=== PATIENT | female | born 1955 | race Hispanic/Latino ===

== ENCOUNTER 2019-11-25 21:13 | Observation (INO) | payer SELFPAY ==
--- NOTE | 2019-11-25 22:11 | RAD REPORT ---
EXAM DESCRIPTION: CT - Head Brain Wo Cont - 11/25/2019 10:04 pm CLINICAL HISTORY: DIZZINESS Headache, drowsiness COMPARISON: No comparisons TECHNIQUE: All CT scans are performed using dose optimization technique as appropriate and may inclu de automated exposure control or mA/KV adjustment according to patient size. FINDINGS: No intracranial hemorrhage, hydrocephalus or extra-axial fluid collection.Mild brain atrop hy noted.No areas of brain edema or evidence of midline shift. The paranasal sinuses and mastoids are clear. The calvarium is intact. IMPRESSION: No acute intracranial abnormality.
[2019-11-25] MEDS ORDERED: NA CHLORIDE 0.9% 1,000 ML ONE (22:18)
[2019-11-25] MEDS ORDERED: NA CHLORIDE 0.9% 500 ML ONE (22:18)
[2019-11-25] MEDS ORDERED: ONDANSETRON 4 MG/2 ML VIAL ONE (22:18)
[2019-11-25 22:19] LABS: Absolute Lymphocytes (CBC) 1.6 K/uL (0.7-4.9); Basophils % 0.9 % (0-1.3); Hematocrit 39.3 % (36.0-45.0); Lymphocytes % 23.4 % (15.3-44.8); MPV 11.6 fL (7.6-11.3)
[2019-11-25 22:20] LABS: Protime INR 1.61
[2019-11-25 22:52] LABS: Platelet Estimate ADEQ
[2019-11-25 22:53] LABS: Blood Morphology Comment NOT SEEN (NOT SEEN)
[2019-11-25 22:54] LABS: Albumin 2.5 g/dL (3.4-5.0); Bilirubin Direct 1.8 mg/dL (0-0.2); Bilirubin Total 3.1 mg/dL (0.2-1.0); Troponin (Emerg Dept Use Only) 0.02 ng/mL (0.0-0.045)
[2019-11-25 22:55] LABS: Thyroid Stimulating Hormone 9.97 uIU/mL (0.360-3.740)
[2019-11-25 22:56] LABS: Potassium 2.1 mmol/L (3.5-5.1)
[2019-11-25 23:30] LABS: Urine Blood 3+ (NEG); Urine Glucose NEGATIVE (NEG); Urine Protein 2+ (NEG); Urine Specific Gravity >1.030 (1.005-1.030)
--- NOTE | 2019-11-25 23:34 | ER ---
Nurse's Notes [facility] Name: Maci Zhao Age: 64 yrs Sex: Female : 1955 Arrival Date: 11/25/2019 Time: 21:19 Bed 14 Private MD: Endy Pillai T Diagnosis: Near syncop[e. Dizziness. Marked bradycardia. Severe hypokalemia and hypomagnesemia. Hypothyroidism Presentation: 11/24 21:10 Chief complaint: EMS states: that they were toned for pt "not feeling well", fc hypotension, fatigue, nausea, vomiting and being in a "funk" x 2 days. Pt states she was seen by Dr Pillai 2 days ago and changed from Celexa to Lexapro. Coronavirus screen: Proceed with normal triage. Ebola Screen: Patient negative for fever greater than or equal to 101.5 degrees Fahrenheit, and additional compatible Ebola Virus Disease symptoms Patient denies exposure to infectious person. Patient denies travel to an Ebola-affected area in the 21 days before illness onset. Initial Sepsis Screen: Does the patient meet any 2 criteria? No. Patient's initial sepsis screen is negative. Does the patient have a suspected source of infection? No. Patient's initial sepsis screen is negative. Risk Assessment: Do you want to hurt yourself or someone else? Patient reports no desire to harm self or others. Onset of symptoms was November 23, 2019. Care prior to arrival: Glucose check: 123. Transition of care: patient was not received from another setting of care. 21:10 Method Of Arrival: EMS: [facility] 21:10 Acuity: CHIP 3 fc Triage Assessment: 21:20 General: Appears in no apparent distress. comfortable, Behavior is calm, cooperative, ls4 quiet. 21:20 Pain: Denies pain. ls4 Historical: - Allergies: 21:32 No Known Allergies; fc - Home Meds: 21:32 escitalopram oxalate oral oral [Active]; Atenolol Oral [Active]; losartan oral oral fc [Active]; Hydrochlorothiazide Oral [Active]; Doxepin Oral [Active]; - PMHx: 21:32 Hypertension; ETOH Abuse; Anxiety; Depression; fc - PSHx: 21:32 Tonsillectomy; R ankle; fc - Immunization history:: Last tetanus immunization: unknown, Flu vaccine is not up to date. - Social history:: Smoking status: Patient denies any tobacco usage or history of. Patient uses alcohol, claims drinking about a 6 pack/day. Patient/guardian denies using street drugs. Screenin:10 Abuse screen: Denies threats or abuse. Nutritional screening: No deficits noted. Tuberculosis screening: No symptoms or risk factors identified. Fall Risk Fall in past 12 months (25 points). Secondary diagnosis (15 points) impaired mobility, No IV (0 pts). Ambulatory Aid- None/Bed Rest/Nurse Assist (0 pts). Gait- Weak (10 pts.). Mental Status- Overestimates/Forgets Limitations (15 pts.). Total Henriquez Fall Scale indicates High Risk Score (45 or more points). Fall prevention measures have been instituted. Side Rails Up X 2 Placed Close to Nursing Station Frequent Obs/Assessments Occuring As available patient and family educated on Fall Prevention Program and Strategies. Assessment: 22:07 General: Appears unkempt, Behavior is cooperative, quiet. Pain: Denies pain. Neuro: ls4 Level of Consciousness is awake, alert, obeys commands, Oriented to person, place, time. Cardiovascular: Reports fatigue, lightheadedness, Denies chest pain, diaphoresis, palpitations, shortness of breath, syncope, vomiting. Respiratory: No deficits noted. GI: No deficits noted. : Reports urinary frequency. Derm: Skin is dry, Skin is dusky, Skin temperature is warm. Musculoskeletal: No deficits noted. No signs and/or symptoms reported regarding the musculoskeletal system. Vital Signs: 21:10 BP 173 / 64; Pulse 50; Resp 18; Temp 98.1(O); Pulse Ox 100% on R/A; Weight 68.95 kg (R); Height 5 ft. 2 in. (157.48 cm) (R); Pain 0/10; 22:32 BP 139 / 53; Pulse 44; Resp 9; Pulse Ox 100% on R/A; Pain 0/10; ls4 23:00 BP 148 / 53; Pulse 48; Resp 15; Pulse Ox 100% on R/A; rv 05/02 00:00 BP 94 / 70; Pulse 74; Resp 16; Pulse Ox 97% on R/A; rv 01:00 BP 115 / 57; Pulse 46; Resp 14; Temp 98(O); Pulse Ox 100% ; rv 11/24 21:10 Body Mass Index 27.80 (68.95 kg, 157.48 cm) ED Course: 11/24 21:10 Arm band placed on Patient placed in an exam room, on a stretcher. fc 21:10 Patient has correct armband on for positive identification. Placed in gown. Bed in low fc position. Call light in reach. Side rails up X2. airplane pilot on. Pulse ox on. NIBP on. 21:10 No provider procedures requiring assistance completed. fc 21:19 Patient arrived in ED. fc 21:20 Matthew Pablo MD is Attending Physician. pkl 21:21 Endy Pillai MD is Private Physician. fc 21:25 Triage completed. fc 22:04 Jenny Moncada RN is Primary Nurse. ls4 22:06 CT Head Brain wo Cont In Process Unspecified. EDMS 22:30 XRAY Chest (1 view) In Process Unspecified. EDMS 23:31 Vasu Cano is Hospitalizing Provider. pkl 11/25 01:18 IV is patent, with fluids infusing freely, with good blood return, Patient admitted, IV rv remains in place. Inserted saline lock: 20 gauge in left forearm, using aseptic technique. Administered Medications: 11/24 22:15 Drug: NS 0.9% 1000 ml Route: IV; Rate: 100 ml/hr; Site: right antecubital; ls4 11/25 01:19 Follow up: IV Status: Infusion continued upon admission rv 11/24 22:15 Drug: Zofran (Ondansetron) 4 mg Route: IVP; Site: right antecubital; ls4 11/25 01:19 Follow up: Response: No adverse reaction rv 11/24 22:31 Drug: NS 0.9% 500 ml Route: IV; Rate: bolus; Site: right antecubital; ls4 11/25 01:20 Follow up: IV Status: Completed infusion; IV Intake: 500ml rv 00:41 Not Given (Patient Refused): Antivert 50 mg PO once ls4 00:41 Drug: Magnesium Sulfate 2 grams Route: IVPB; Infused Over: 1 hrs; Site: left ls4 antecubital; 01:18 Follow up: IV Status: Infusion continued upon admission rv 00:42 Drug: Potassium Effervescent Tablet 50 mEq Route: PO; ls4 01:19 Follow up: Response: No adverse reaction rv 00:42 Drug: Potassium Chloride 20 mEq Route: IV; Rate: calculated rate; Site: right ls4 antecubital; 01:19 Follow up: IV Status: Infusion continued upon admission rv Intake: 01:20 IV: 500ml; Total: 500ml. rv Outcome: 11/24 23:34 Decision to Hospitalize by Provider. pkl 11/25 01:17 Admitted to Med/surg accompanied by nurse, via wheelchair, room 218, with chart, Report rv called to katina marco Condition: good Instructed on the need for admit. 01:32 Patient left the ED. rv Signatures: Dispatcher [employer] EDMS Matthew Pablo MD MD pkAna Holman, RN RN Norm Gipson RN RN rv Jenny Moncada RN RN ls4 Corrections: (The following items were deleted from the chart) 00:40 00:24 Antivert 50 mg PO ls4 ls4
--- NOTE | 2019-11-25 23:34 | EDPHYS ---
Physician Documentation [facility] Name: Maci Zhao Age: 64 yrs Sex: Female : 1955 Arrival Date: 11/25/2019 Time: 21:19 Bed 14 Private MD: Endy Pillai T ED Physician Matthew Pablo HPI: 11/24 21:47 This 64 yrs old Female presents to ER via EMS with complaints of "fatigue", pkl "not feeling well". 21:47 The patient presents with generalized weakness, lightheadedness. Onset: The pkl symptoms/episode began/occurred 2 day(s) ago. Associated signs and symptoms: Pertinent positives: nausea, vomiting, fatigue. Historical: - Allergies: 21:32 No Known Allergies; fc - Home Meds: 21:32 escitalopram oxalate oral oral [Active]; Atenolol Oral [Active]; losartan oral oral fc [Active]; Hydrochlorothiazide Oral [Active]; Doxepin Oral [Active]; - PMHx: 21:32 Hypertension; ETOH Abuse; Anxiety; Depression; fc - PSHx: 21:32 Tonsillectomy; R ankle; fc - Immunization history:: Last tetanus immunization: unknown, Flu vaccine is not up to date. - Social history:: Smoking status: Patient denies any tobacco usage or history of. Patient uses alcohol, claims drinking about a 6 pack/day. Patient/guardian denies using street drugs. ROS: 21:47 Eyes: Negative for injury, pain, redness, and discharge, ENT: Negative for injury, pkl pain, and discharge, Neck: Negative for injury, pain, and swelling. 21:47 Cardiovascular: Positive for chest pain. 21:47 Respiratory: Negative for cough, shortness of breath. 21:47 Abdomen/GI: Negative for nausea, vomiting. 21:47 Back: Negative for acute changes. 21:47 : Negative for urinary symptoms. 21:47 MS/extremity: Negative for acute changes. 21:47 Skin: Negative for rash. 21:47 Neuro: Positive for dizziness. Exam: 21:47 Head/Face: Normocephalic, atraumatic. Eyes: Pupils equal round and reactive to light, pkl extra-ocular motions intact. Lids and lashes normal. Conjunctiva and sclera are non-icteric and not injected. Cornea within normal limits. Periorbital areas with no swelling, redness, or edema. ENT: Nares patent. No nasal discharge, no septal abnormalities noted. Tympanic membranes are normal and external auditory canals are clear. Oropharynx with no redness, swelling, or masses, exudates, or evidence of obstruction, uvula midline. Mucous membranes moist. Neck: Trachea midline, no thyromegaly or masses palpated, and no cervical lymphadenopathy. Supple, full range of motion without nuchal rigidity, or vertebral point tenderness. No Meningismus. Chest/axilla: Normal chest wall appearance and motion. Nontender with no deformity. No lesions are appreciated. Cardiovascular: Regular rate and rhythm with a normal S1 and S2. No gallops, murmurs, or rubs. Normal PMI, no JVD. No pulse deficits. Respiratory: Lungs have equal breath sounds bilaterally, clear to auscultation and percussion. No rales, rhonchi or wheezes noted. No increased work of breathing, no retractions or nasal flaring. Abdomen/GI: Soft, non-tender, with normal bowel sounds. No distension or tympany. No guarding or rebound. No evidence of tenderness throughout. Back: No spinal tenderness. No costovertebral tenderness. Full range of motion. Skin: Warm, dry with normal turgor. Normal color with no rashes, no lesions, and no evidence of cellulitis. MS/ Extremity: Pulses equal, no cyanosis. Neurovascular intact. Full, normal range of motion. Neuro: Awake and alert, GCS 15, oriented to person, place, time, and situation. Cranial nerves II-XII grossly intact. Motor strength 5/5 in all extremities. Sensory grossly intact. Cerebellar exam normal. Normal gait. Vital Signs: 21:10 BP 173 / 64; Pulse 50; Resp 18; Temp 98.1(O); Pulse Ox 100% on R/A; Weight 68.95 kg fc (R); Height 5 ft. 2 in. (157.48 cm) (R); Pain 0/10; 22:32 BP 139 / 53; Pulse 44; Resp 9; Pulse Ox 100% on R/A; Pain 0/10; ls4 23:00 BP 148 / 53; Pulse 48; Resp 15; Pulse Ox 100% on R/A; rv 11/25 00:00 BP 94 / 70; Pulse 74; Resp 16; Pulse Ox 97% on R/A; rv 01:00 BP 115 / 57; Pulse 46; Resp 14; Temp 98(O); Pulse Ox 100% ; rv 11/24 21:10 Body Mass Index 27.80 (68.95 kg, 157.48 cm) fc MDM: 11/24 21:20 Patient medically screened. pkl 23:28 Data reviewed: vital signs, nurses notes, lab test result(s), EKG, radiologic studies, pkl CT scan, plain films. ED course: EKG ( Marked sinus bradycardia, LVH with Repolarization abnormality, prolonged QT ). ED course: Talked to Dr. Cano, for observation. 11/24 21:45 Order name: Basic Metabolic Panel; Complete Time: 23:35 pkl 11/24 21:45 Order name: CBC with Diff; Complete Time: 23:17 pkl 11/24 21:45 Order name: LFT's; Complete Time: 23:35 pkl 11/24 21:45 Order name: Magnesium; Complete Time: 23:35 pkl 11/24 21:45 Order name: NT PRO-BNP; Complete Time: 23:35 pkl 11/24 21:45 Order name: PT-INR; Complete Time: 22:28 pkl 11/24 21:45 Order name: Troponin (emerg Dept Use Only); Complete Time: 23:35 pkl 11/24 21:45 Order name: XRAY Chest (1 view) pkl 11/24 21:45 Order name: TSH; Complete Time: 23:35 pkl 11/24 21:46 Order name: CT Head Brain wo Cont; Complete Time: 22:28 pkl 11/24 22:53 Order name: Manual Differential EDMS 11/24 22:57 Order name: T4 Free; Complete Time: 23:35 EDMS 11/24 23:21 Order name: Urine Dipstick--Ancillary (enter results); Complete Time: 23:35 ar5 11/24 21:45 Order name: EKG; Complete Time: 21:46 pkl 11/24 21:45 Order name: Cardiac monitoring; Complete Time: 22:02 pkl 11/24 21:45 Order name: EKG - Nurse/Tech; Complete Time: 22:02 pkl 11/24 21:45 Order name: IV Saline Lock; Complete Time: 22:02 pkl 11/24 21:45 Order name: Labs collected and sent; Complete Time: 22:02 pkl 11/24 21:45 Order name: O2 Per Protocol; Complete Time: 22:02 pkl 11/24 21:45 Order name: O2 Sat Monitoring; Complete Time: 22:02 pkl Administered Medications: 22:15 Drug: NS 0.9% 1000 ml Route: IV; Rate: 100 ml/hr; Site: right antecubital; ls4 11/25 01:19 Follow up: IV Status: Infusion continued upon admission rv 11/24 22:15 Drug: Zofran (Ondansetron) 4 mg Route: IVP; Site: right antecubital; ls4 11/25 01:19 Follow up: Response: No adverse reaction rv 11/24 22:31 Drug: NS 0.9% 500 ml Route: IV; Rate: bolus; Site: right antecubital; ls4 11/25 01:20 Follow up: IV Status: Completed infusion; IV Intake: 500ml rv 00:41 Not Given (Patient Refused): Antivert 50 mg PO once ls4 00:41 Drug: Magnesium Sulfate 2 grams Route: IVPB; Infused Over: 1 hrs; Site: left ls4 antecubital; 01:18 Follow up: IV Status: Infusion continued upon admission rv 00:42 Drug: Potassium Effervescent Tablet 50 mEq Route: PO; ls4 01:19 Follow up: Response: No adverse reaction rv 00:42 Drug: Potassium Chloride 20 mEq Route: IV; Rate: calculated rate; Site: right ls4 antecubital; 01:19 Follow up: IV Status: Infusion continued upon admission rv Disposition: 11/25/19 23:34 Hospitalization ordered by Vasu Cano for Observation. Preliminary diagnosis is Near syncop[e. Dizziness. Marked bradycardia. Severe hypokalemia and hypomagnesemia. Hypothyroidism. - Bed requested for Telemetry/MedSurg (observation). - Status is Observation. rv - Condition is Stable. - Problem is new. - Symptoms are unchanged. Signatures: Dispatcher [employer] EDMS Matthew Pablo MD MD pkl Chretien, Felicia, RN RN fc Garcia, Cindy, RN RN cg Vicente, Ronaldo, RN RN rv Stewart, Lisa, RN RN ls4 Corrections: (The following items were deleted from the chart) 00:35 11/24 23:34 Hospitalization Ordered by Vasu Cano for Observation. Preliminary cg diagnosis is Near syncop[e. Dizziness. Marked bradycardia. Severe hypokalemia and hypomagnesemia. Hypothyroidism. Bed requested for Telemetry/MedSurg (observation). Status is Observation. Condition is Stable. Problem is new. Symptoms are unchanged. pkl 11/25 01:32 00:35 11/25/2019 23:34 Hospitalization Ordered by Vasu Cano for Observation. rv Preliminary diagnosis is Near syncop[e. Dizziness. Marked bradycardia. Severe hypokalemia and hypomagnesemia. Hypothyroidism. Bed requested for Telemetry/MedSurg (observation). Status is Observation. Condition is Stable. Problem is new. Symptoms are unchanged. cg
--- NOTE | 2019-11-26 00:14 | P.HP ---
Certification for Inpatient Patient admitted to: Observation With expected LOS: <2 Midnights Practitioner: I am a practitioner with admitting privileges, knowledge of patient current condition, hospital course, and medical plan of care. Services: Services provided to patient in accordance with Admission requirements found in Title 42 Section 412.3 of the Code of Federal Regulations Patient History Date of Service: 11/26/19 Reason for admission: Nausea and vomiting and diarrhea History of Present Illness: 64-year-old woman with a history of anxiety and hypertension presented to the ED with a complaint nausea and vomiting and diarrhea which has been present for about 1 week. She also reports progressively weakness since the onset of her symptoms. Patient reports significant weight loss over the past 3 weeks. She stated she almost passed out today. Her blood pressure was severely elevated on arrival. Blood work in the ED showed hypokalemia and hypomagnesemia. Head CT shows no acute disease. EKG demonstrated sinus bradycardia. Patient is placed under observation for further management. Allergies No Known Drug Allergies Allergy (Unverified 11/09/14 23:18) Unknown - Past Medical/Surgical History -: Anxiety disorder -: Hypertension -: Alcohol abuse -: None - Family History Father -: Liver disease - Social History Smoking Status: Never smoker Alcohol use: Yes CD- Drugs: No Place of Residence: Home Review of Systems Other: Except as documented, all other systems reviewed and negative. Physical Examination - Physical Exam General: Alert, In no apparent distress, Oriented x3 HEENT: PERRLA, Mucous membr. moist/pink, Sclerae nonicteric Neck: Supple, JVD not distended Respiratory: Clear to auscultation bilaterally, Normal air movement Cardiovascular: No edema, Regular rate/rhythm, Normal S1 S2 Capillary refill: <2 Seconds Gastrointestinal: Normal bowel sounds, Soft and benign, Non-distended, No tenderness Musculoskeletal: No swelling Integumentary: Other (Sclerosis bilateral lower legs.) Neurological: Normal speech, Normal strength at 5/5 x4 extr - Studies Laboratory Data (last 24 hrs) 11/25/19 22:00: PT 18.8 H, INR 1.61 11/25/19 22:00: WBC 7.0, Hgb 13.2, Hct 39.3, Plt Count 74 L 11/25/19 22:00: Sodium 132 L, Potassium 2.1 L*, BUN 12, Creatinine 0.89, Glucose 130 H, Magnesium 1.0 L*, Total Bilirubin 3.1 H, AST 123 H, ALT 58, Alkaline Phosphatase 94 Assessment and Plan - Problems (Diagnosis) (1) Near syncope Current Visit: Yes Status: Acute (2) Sinus bradycardia Current Visit: Yes Status: Acute (3) Hypokalemia Current Visit: Yes Status: Acute (4) Hypomagnesemia Current Visit: Yes Status: Acute (5) Alcohol abuse Current Visit: Yes Status: Acute (6) Accelerated hypertension Current Visit: Yes Status: Acute - Plan Place under observation. Syncopal workup with echocardiogram. Telemetry Resuscitated with IV fluid Correct electrolytes. Replete magnesium and potassium IV. Obtain CT abdomen and chest given history of significant weight loss. IV antibiotic-Flagyl and Cipro. Noted patient has monocytosis. Will obtain inflammatory markers- CRP, ESR. She may probably need to be screened for autoimmune disorder. Ativan IV p.r.n. for impending alcohol withdrawal. Hydralazine p.r.n. for BP spikes. Continue home antihypertensives. Avoid beta-blockers for now. - Advance Directives Does patient have a Living Will: No Does patient have a Durable POA for Healthcare: No
[2019-11-26] MEDS ORDERED: POTASSIUM 25 MEQ EFFERV TAB ONE (00:33)
[2019-11-26] MEDS ORDERED: KCL 20 MEQ/100 mL IVPB 20 MEQ/100 ML BAG IV ONE (00:33)
[2019-11-26] MEDS ORDERED: MECLIZINE HCL 12.5 MG TAB ONE (00:33)
[2019-11-26] MEDS ORDERED: Magnesium Sulfate 2gm IVPB 2 G/50 ML BAG IV ONE (00:33)
[2019-11-26] MEDS ORDERED: ACETAMINOPHEN 500 MG TAB PO PRN (00:54)
[2019-11-26] MEDS ORDERED: ONDANSETRON 4 MG/2 ML VIAL IV PRN (00:54)
[2019-11-26] MEDS ORDERED: LORazepam 2 MG/ML VIAL IV PRN (00:54)
[2019-11-26 01:59] VITALS: BMI 27.1
[2019-11-26] MEDS ORDERED: NA CHLORIDE 0.9% 250 ML ONE (02:03)
[2019-11-26] MEDS: METRONIDAZOLE 500mg IVPB 500 MG/100 ML BAG IV SCH ×3 (02:22→16:21)
[2019-11-26] MEDS: NS KCL 20MEQ 20 MEQ/1,000 ML BAG IV SCH ×2 (03:59→11:00)
[2019-11-26 06:04] VITALS: O2SAT 97
[2019-11-26 07:38] LABS: Magnesium 1.7 mg/dL (1.8-2.4)
[2019-11-26 07:39] LABS: Potassium 2.4 mmol/L (3.5-5.1)
[2019-11-26] MEDS ORDERED: POTASSIUM CL 40 MEQ in NA CHLORIDE 0.9% 500 ML IV SCH (08:00)
[2019-11-26] MEDS ORDERED: CIPROFLOXACIN 400mg IV 400 MG/200 ML BAG IV SCH (09:00)
[2019-11-26] MEDS ORDERED: KCL 20 MEQ/100 mL IVPB 20 MEQ/100 ML BAG IV SCH (09:00)
[2019-11-26] MEDS: KCL 20 MEQ/100 mL IVPB 20 MEQ/100 ML BAG IV SCH ×2 (09:21→12:34)
--- NOTE | 2019-11-26 10:21 | RAD REPORT ---
EXAM DESCRIPTION: Ming Single View11/25/2019 10:29 pm CLINICAL HISTORY: Chest pain COMPARISON: none FINDINGS: The lungs appear clear of acute infiltrate. The heart is mildly enlarged IMPRESSION: No acute abnormalities displayed
[2019-11-26] MEDS ORDERED: MAGNESIUM SULFATE 1 gm IVPB 1 GM/100 ML BAG IV ONE (11:00)
--- NOTE | 2019-11-26 11:30 | RAD REPORT ---
EXAM DESCRIPTION: CT - Chest Abdomen Pelvis W Cont - 11/26/2019 11:05 am CLINICAL HISTORY: Chest and abdominal pain/vomiting/weight loss COMPARISON: None TECHNIQUE: Computed axial tomography of the chest, abdomen and pelvis was obtained. 100 cc Isovue-30 0 was administered intravenously. Oral contrast was given. All CT scans are performed using dose optimization technique as appropriate and may include automated exposure control or mA/KV adjustment according to patient size. FINDINGS: The most superior slice demonstrates a 2.7 centimeter air-filled structure to the right of the cervical esophagus which may indicate a laryngocele. The lungs are clear. No mediastinal or hilar lymphadenopathy A pleural effusion is not present. A pericardial effusion is not noted. The heart is enlarged Fatty liver. Cirrhosis is suspected. Small low-density area within the right lobe probably a cyst Spleen, pancreas, adrenals and kidneys appear unremarkable. Varices are present within the left abdom en There is no evidence of diverticulitis. Normal appendix. Fibroid uterus. Fibroids measure up to 5.3 c entimeters. Some are calcified. Mild prominence of the endometrium. The uterus is retroverted. The bladder is compressed by the uteru s. 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 Cirrhosis is suspected. Varices. Fibroid uterus Mild prominence of the endometrium. Nonemergent pelvic ultrasound recommended
[2019-11-26 18:38] VITALS: BP 142/70; TEMP 98.5
--- NOTE | 2019-11-27 | DS ---
Date of Discharge: 11/26/2019 Discharge Diagnoses: 1.Near syncope. 2.Sinus bradycardia. 3.Hypokalemia. 4.Hypomagnesemia. 5.Alcohol abuse. 6.Accelerated hypertension. Hospital Course: Patient is a 64-year-old female with past medical history of alcoholism, anxiety, h ypertension, comes in with nausea, vomiting, and diarrhea for about 1 week. Patient was started on I V fluids. Her diarrhea resolved. She had multiple electrolyte abnormalities including hypokalemia a nd hypomagnesemia which were replaced. Her sodium was also low. This may be secondary to her chroni c alcoholism. Her TSH was high. Patient had a CT chest, abdomen, pelvis done, which showed right la ryngocele, fatty liver, cirrhosis suspected, varices, fibroid uterus and prominence of the endometriu m. She will need a followup pelvic ultrasound for the prominence of the endometrium to rule out any sort of endometrial cancer. Patient was informed of her test results. Patient overall did well. Sh e did have some bradycardia. This was likely due to her atenolol dose. Patient will need to decreas e her dose and need to be switched over to propranolol depending on how she is able to tolerate that due to her esophageal varices. She will also need to follow up with GI for her cirrhosis and she lul l need to follow up with ENT for the right laryngocele. She was counseled extensively regarding alco hol cessation, which has likely caused her liver cirrhosis as well as possibly the laryngocele. Clarisa ent was feeling better. Her diarrhea resolved. CT scan did not show anything acute. She was able t o tolerate her diet. She was then cleared for discharge and sent home in a stable condition. Activity: As tolerated. Medications: As per medication reconciliation list. Followup: Follow up with primary care physician in 1 week. Establish care with GI in 2-4 weeks. Re turn to ER for worsening condition. Complete alcohol cessation. Diet: Low-sodium, 1500 mL fluid restriction. Patient to monitor her heart rate and have PCP adjust her propranolol dose as necessary. Physical Examination: General: Awake, alert, oriented x3. CV: S1, S2. Respiratory: Moving air well bilaterally. Abdomen: Soft, nontender, nondistended. Positive bowel sounds. Extremities: No clubbing, cyanosis, edema. Neurologic: Nonfocal. SA/MODL Voice ID: [id number] Report ID: [id number]
[2019-11-27] MEDS ORDERED: ESCITALOPRAM 20 MG TAB PO SCH (09:00)
--- NOTE | 2019-11-27 13:11 | EKG ---
Test Date: 2019-11-25 Test Time: 21:55:42 Shaker Operator: RV MEASUREMENT RESULTS: Intervals: Rate: 47 NV: 202 QRSD: 114 QT: 586 QTc: 518 [place]: P: 40 NV: 202 QRS: 7 T: 72 INTERPRETIVE STATEMENTS: Marked sinus bradycardia Left ventricular hypertrophy with repolarization abnormality Prolonged QT Abnormal ECG No previous ECG available for comparison Electronically Signed On 11-27-19 13:10:57 CDT by Lobito Gonzales
== END 2019-11-26 18:40 | disposition home or self-care (01) ==
LOC: ER 21:13 → ERHOLD 11-26 00:25 → 2ND 11-26 01:17
PROVIDERS: ADMIT Internal Medicine; ATTEND Family Medicine
DX: R55 Syncope and collapse (principal); E87.6 Hypokalemia; E83.42 Hypomagnesemia; R00.1 Bradycardia, unspecified; R11.2 Nausea with vomiting, unspecified; R19.7 Diarrhea, unspecified; F10.20 Alcohol dependence, uncomplicated; I10 Essential (primary) hypertension; K74.60 Unspecified cirrhosis of liver; I85.10 Secondary esophageal varices without bleeding; Q31.3 Laryngocele; K76.0 Fatty (change of) liver, not elsewhere classified; R53.1 Weakness; D72.821 Monocytosis (symptomatic); D25.9 Leiomyoma of uterus, unspecified; F41.9 Anxiety disorder, unspecified; R63.4 Abnormal weight loss; Z68.27 Body mass index [BMI] 27.0-27.9, adult
CPT/HCPCS: 36415; 70450; 71045; 71260; 74177; 80048; 80076; 81003; 83735; 83880; 84132; 84439; 84443; 84484; 85025; 85610; 93005; 94760; 97116; 97161; 99285; G0378; J0744; J2405; J3475; J7030; J7040; J8597; Q9967

== ENCOUNTER 2023-03-10 16:33 | Observation (INO) | payer OTHER ==
--- OUTSIDE RECORDS SUMMARY | 2023-03-10 16:42 | XMS REPORT | Continuity of Care Document ---
:1955 Author Organization [facility] t Address [address] [place] [address] Care Team Providers Name Role Phone Endy Pillai Dima Primary Care Physician Lora Gregg LVN Attending Clinician Unavailable Doctor Unassigned, [place] Attending Clinician Unavailable SUMIT SANDOVAL Attending Clinician Unavailable Jmaaal NULL, Solange Lundy Attending Clinician Harriet NULL, Neeru Attending Clinician Richa Fam MD Attending Clinician [phone] Sumit Sandoval MD Attending Clinician KEMAL PHILLIPS Attending Clinician Unavailable Kemal Phillips DO Attending Clinician Priya Ruiz MD Attending Clinician Rizwana Canas MA Attending Clinician Unavailable Fox NULL, Garrick Glasgow Attending Clinician Cesar NULL, Kalpana Attending Clinician Mary Adams RN Attending Clinician Unavailable RAJEEV WRIGHT Attending Clinician Unavailable RAJEEV WRIGHT Attending Clinician Unavailable Dada Zamora MD Attending Clinician Ragini NULL, Drew Attending Clinician Shola Mccall Attending Clinician Unavailable Michael METAL TRIM ERECTOR, Marcela R Attending Clinician Ysabel COELHO, Joanna Keenan Attending Clinician DREW WEINSTEIN Attending Clinician Unavailable Carlos DRAKE, Jose Martin Attending Clinician Sraan NULL, Andrews Ho Attending Clinician Alondra Talavera RN Attending Clinician Arianna Sood RN Attending Clinician Dolly Vazquez DO Attending Clinician Ayden Rivera MD Attending Clinician Denise Zuleta MD Attending Clinician Edie NULL, Jeremiah Attending Clinician AYDEN RIVERA Attending Clinician Unavailable Gab Choi MD Attending Clinician [phone] Mary Fishman CRNA Attending Clinician Chanell NULL, Sanket Attending Clinician Yana Cardona S Attending Clinician Mateusz Florian MD Attending Clinician NEERU BRITTON Admitting Clinician Unavailable Neeru Britton MD Admitting Clinician RAJEEV WRIGHT Admitting Clinician Unavailable TONY QUINTANILLA Admitting Clinician Unavailable DREW WEINSTEIN Admitting Clinician Unavailable Drew Weinstein MD Admitting Clinician Ayden Rivera MD Admitting Clinician AYDEN RIVERA Admitting Clinician Unavailable Mateusz Florian MD Admitting Clinician Payers Payer Name Policy Type Policy Number Effective Date Expiration Date Waldemar guardado MEDICAID SSI PENDING 2021 PENDING 00:00:00 Problems Condition Condition Condition Status Onset Resolution Last Treating Co mments Source Name Details Category Date Date Treatment Clinician Date SDH SDH Disease Active Univers (subdural (subdural 5-22 ity of hematoma) [place] SAH SAH Disease Active Univers (subarachn (subarachn 5-22 it y of oid oid 00:00: [place] hemorrhage hemorrhage 00 Me dical ) ) Branch Contusion Contusion Disease Active Uni vers of right of right 5-22 ity of temporal temporal 00:00: [place] lobe lobe 00 Medical Branch At high At high Disease Recurre Univer s risk for risk for nce 5-22 ity of seizures seizures 00:00: 00 Medical Branch Trauma Trauma Disease Active Univers 5-18 ity of 00:00: Medical Branch Hemoptysis Hemoptysis Disease Active U nivers 9-11 ity of 00:00: Medical Branch Acute Acute Disease Active Univers respirator respirator 9-08 it y of y failure y failure 00:00: a s Medical Branch H/O: H/O: Disease Active Univers depression depression 6-28 it y of 00:00: Medical Branch Hepatic Hepatic Disease Active Univers encephalop encephalop 3-25 it y of athy athy 00:00: Medical Branch AMS AMS Disease Active Univers (altered (altered 9-20 ity of mental mental 00:00: [place] status) status) 00 Medical Branch Other iron Other iron Disease Active Overview : Univers deficiency deficiency 9-20 Formattin ity of anemia anemia 00:00: g of this 00 note Medical might be Branch different from the original. Added automatic ally from request for surgery [id number] Elevated Elevated Disease Active Unive rs brain brain 7-20 ity of natriureti natriureti 00:[place] c peptide c peptide 00 Medi loki (BNP) (BNP) Branch level level Essential Essential Disease Active Uni vers (primary) (primary) 7-20 ity of hypertensi hypertensi 00:00[place] on 00 Medical Branch Alcoholic Alcoholic Disease Active Uni vers cirrhosis cirrhosis 7-20 ity of of liver of liver 00:00: [place] without without 00 Medical ascites ascites Branch Obesity Obesity Disease Active Univers (BMI (BMI 7-16 ity of 30-39.9) 30-39.9) 00:00: [place] 00 Medical Branch Elevated Elevated Disease Active Unive rs troponin troponin 7-14 ity of 00:00: [place] Medical Branch Elevated Elevated Disease Active Unive rs troponin troponin 7-14 ity of 00:00: [place] 00 Medical Branch Allergies, Adverse Reactions, Alerts Allergy Allergy Status Severity Reaction(s) Onset Inactive Treating Comm ents Source Name Type Date Date Clinician NO KNOWN Drug Active Univers ALLERGIE Class ity of S [facility] Social History Social Habit Start Date Stop Date Quantity Comments Source History of tobacco Passive smoker Un iversity of use [place] [facility] History SDOH Social Unive rsity of Connections [facility] Med ical Together Branch History SDOH Social Unive rsity of Connections [facility] Medical Branch History SDOH Social Unive rsity of Connections [place] [facility] Membership Branch History SDOH Social Unive rsity of Connections [place] [facility] Meetings Branch History SDOH Food Univers ity of Worry [facility] Gender identity [facility] Alcohol intake 2023-01-08 2023-01-08 Current drinker Unive rsity of 00:00:00 00:00:00 of alcohol [facility] (finding) Branch Cigarettes smoked 2022-12-14 2022-12-14 Univers ity of current (pack per 00:00:00 00:00:00 ) - Reported Branch Cigarette 2022-12-14 2022-12-14 University of pack-years 00:00:00 00:00:00 [facility] Tobacco use and 2022-12-14 2022-12-14 Smokeless tobacco Un iversity of exposure 00:00:00 00:00:00 non-user [place] [facility] History SDOH 2022-12-12 2022-12-12 2 University o f Transport Med 00:00:00 00:00:00 [place] Medic al Branch History SDOH 2022-12-12 2022-12-12 2 University o f Transport Non-Med 00:00:00 00:00:00 [place] M edical Branch History SDOH Social 2022-12-12 2022-12-12 5 Unive rsity of Connections Phone 00:00:00 00:00:00 [place] M edical Branch History SDOH Social 2022-12-12 2022-12-12 3 Unive rsity of Connections Living 00:00:00 00:00:00 [place] [facility] History SDOH 2022-12-12 2022-12-12 0 University o f Physical Activity 00:00:00 00:00:00 [place] M edical DPW Branch History SDOH 2022-12-12 2022-12-12 0 University o f Physical Activity 00:00:00 00:00:00 [place] M edical MPS Branch History SDOH 2022-12-12 2022-12-12 5 University o f Financial 00:00:00 00:00:00 [place] [facility] History SDOH Food 2022-12-12 2022-12-12 1 Univers ity of Scarcity 00:00:00 00:00:00 [place] [facility] History SDOH 2022-12-12 2022-12-12 2 University o f Housing Unable to 00:00:00 00:00:00 [place] M edical Pay Branch History SDOH 2022-12-12 2022-12-12 1 University o f Housing Places 00:00:00 00:00:00 [place] Medi loki Lived Branch History SDOH 2022-12-12 2022-12-12 2 University o f Housing Homeless 00:00:00 00:00:00 [place] Me dical Last Year Branch History SDOH 2022-12-12 2022-12-12 5 University o f Alcohol Frequency 00:00:00 00:00:00 [place] M edical Branch History SDOH 2022-12-12 2022-12-12 2 University o f Alcohol Std Drinks 00:00:00 00:00:00 [place] [facility] History SDOH 2022-12-12 2022-12-12 1 University o f Alcohol Binge 00:00:00 00:00:00 [facility] al Branch Exposure to 2022-12-01 2022-12-11 Not sure University of SARS-CoV-2 (event) 00:00:00 13:59:00 [facility] Education 2021-10-18 2021-10-18 21 University of 00:00:00 00:00:00 [facility] History of Social 2021-04-18 2021-04-18 Univers ity of function 00:00:00 00:00:00 [facility] Alcohol Comment 2021-04-16 2021-04-16 Last drink 3 Univers ity of 00:00:00 00:00:00 months ago, [facility] previously > 20 Branch years of 2x 12 packs beer daily, Tobacco Comment 2021-04-16 2021-04-16 as a young Universit y of 00:00:00 00:00:00 [facility] Sex Ass[birth year] [facility] 00:00:[facility] 00:[facility]:00 [facility] Smoking Status Start Date Stop Date Source Tobacco smoking [facility] consumption unknown Ex-smoker 2022-12-14 00:00:00 2022-12-14 [place] o f [place] 00:00:[facility] Medications Ordered Filled Start Stop Current Ordering Indication Dosage Frequency Signature Comments Components Source Medication Medication Date Date Medication? Clinician (SIG) Name Name rifaximin Yes 550mg Take 550 Uni vers (XIFAXAN 6-15 mg by ity of ORAL) 19:54: mouth 2 [place] [id number] (two) Medical times Branch daily. losartan Yes 100mg Take 100 Univ ers potassium 6-15 mg by ity of (LOSARTAN 19:54: mouth [place] ORAL) 23 daily. Medical Branch escitalopra Yes 20mg Take 2 Univ ers m oxalate 6-15 tablets by ity of 10 mg 19:54: mouth in [facility] 23 the Medical morning. Branch foLIC acid Yes 1mg Take 1 Unive rs 1 mg tablet 6-15 tablet by ity of 19:54: mouth in [place] 23 the Medical morning. Branch rifaximin Yes 550mg Take 550 Uni vers (XIFAXAN 6-15 mg by ity of ORAL) 19:54: mouth 2 [place] 23 (two) Medical times Branch daily. losartan 2023-0 Yes 100mg Take 100 Univ ers potassium 6-15 mg by ity of (LOSARTAN 19:54: mouth [place] ORAL) 23 daily. Medical Branch escitalopra 3-0 Yes 20mg Take 2 Univ ers m oxalate 6-15 tablets by ity of 10 mg 19:54: mouth in [place] tablet 23 the Medical morning. Branch foLIC acid 3-0 Yes 1mg Take 1 Unive rs 1 mg tablet 6-15 tablet by ity of 19:54: mouth in [place] 23 the Medical morning. Branch fluconazole 3-0 202- No 150mg 150 mg, U nivers (DIFLUCAN) -15 06-15 Oral, ity of tablet 150 13:45: 17:00 ONCE, 1 [place] as mg 00 :00 dose, On Medical [place] [facility] 01/08/23 at 0845, ELIZABETH
Re ason for Anti-Infec tive: Empiric Therapy for Suspected Infection< br>Empiric Therapy Site: Skin / Soft tissue
Duration of therapy: 72 hours furosemide 2023-0 Yes 20mg Take 1 Unive rs 20 mg 6-10 tablet by ity of tablet 00:00: mouth in [place] 00 the Medical morning. Branch spironolact 2023-0 Yes 50mg Take 1 Univ ers one 50 mg 6-10 tablet by ity o f tablet 00:00: mouth in [place] 00 the Medical morning. Branch amantadine 2023-0 Yes 100mg Take 1 Univ ers HCL 100 mg 6-10 capsule by ity of capsule 00:00: mouth [place] 00 every Medical morning Branch and at 1200 (noon). thiamine 2023-0 Yes 100mg Take 1 Univer s 100 mg 6-10 tablet by ity of tablet 00:00: mouth in [place] 00 the Medical morning. Branch furosemide 2023-0 Yes 20mg Take 1 Unive rs 20 mg 6-10 tablet by ity of tablet 00:00: mouth in [place] 00 the Medical morning. Branch spironolact 2023-0 Yes 50mg Take 1 Univ ers one 50 mg 6-10 tablet by ity o f tablet 00:00: mouth in [place] 00 the Medical morning. Branch amantadine 2023-0 Yes 100mg Take 1 Univ ers HCL 100 mg 6-10 capsule by ity of capsule 00:00: mouth [place] 00 every Medical morning Branch and at 1200 (noon). thiamine 3-0 Yes 100mg Take 1 Univer s 100 mg 6-10 tablet by ity of tablet 00:00: mouth in [place] 00 the Medical morning. Branch OMEPRAZOLE 2022-0 2022- No 20mg Take 20 mg Univers ORAL 01-02 by mouth ity of 13:36: 00:00 daily. [place] 46 :00 Medical Branch spironolact 2022-0 2022- No 25mg Take 1 Uni vers one 25 mg 01-02 tablet by ity of tablet 13:36: 00:00 mouth in [place] 46 :00 the Medical morning. Branch carvediloL 2022-0 2022- No 6.25mg Take 1 Un valente 6.25 mg 01-02 tablet by ity of tablet 13:36: 00:00 mouth in [place] 46 :00 the Medical morning Branch and 1 tablet in the evening. Take with meals. lactulose 2022-0 2022- No 1936 15mL Take 15 mL U nivers 10 gram/15 01-02 by mouth 3 it y of mL (15 mL) 13:36: 00:00 (three) [place] as Soln 46 :00 times Medical daily. Branch Take three times per day Indication s: hardening of the liver vitamin B 2022-0 2022- No Take by [facility] [place] [facility] ers complex (B 01-02 mouth ity of COMPLEX 13:36: 00:00 daily. [place] VITAMINS 46 :00 Medical ORAL) Branch Miscellaneo 2022- No Dose for U nivers Medical 01-02 Your Liver it y of Supply Liqd 13:36: 00:00 Supplement [place] 46 :00 Medical Branch lactulose 2022-0 Yes 15mL Take 15 mL Un valente 10 gram/15 01-02 by mouth ity o f mL solution 00:00: in the [facility] 00 morning Medical and 15 mL Branch in the evening. levETIRAcet 3-0 Yes 750mg Take 1 Uni vers am 750 mg 01-02 tablet by ity o f tablet 00:00: mouth in [place] 00 the Medical morning Branch and 1 tablet in the evening. QUEtiapine 2023-0 Yes 25mg Take 1 Unive rs 25 mg - tablet by ity of tablet 00:00: mouth at [place] [address] bedtime. Medical Branch lactulose 2022-0 Yes 15mL Take 15 mL Un valente 10 gram/15 01-02 by mouth ity o f mL solution 00:00: [place] morning Medical and 15 mL Branch in the evening. levETIRAcet 3-0 Yes 750mg Take 1 Uni vers am 750 mg 01-02 tablet by ity o f tablet 00:00: mouth in [place] 00 the Medical morning Branch and 1 tablet in the evening. QUEtiapine 2022-0 Yes 25mg Take 1 Unive rs 25 mg 01-02 tablet by ity of tablet 00:00: mouth at [place] [address] bedtime. Medical Branch magnesium 2022-0 2022- No 4g 4 g, IV Univ ers sulfate in 12-31 Piggyback, it y of water 4 12:45: 15:40 at 25 [place] gram/50 mL 00 :00 mL/hr Medical (8 %) IV Administer Branc h Piggyback 4 over 120 g Minutes, ONCE, 1 dose, On Thu12/31/22 at 0745, Routine KCL 20 2022-0 2022- No 40meq 40 mEq, Univer s mEq/15 mL 12-31 Oral, ity of solution 40 12:45: 13:38 ONCE, 1 [place] mEq 00 :00 dose, On Thu12/31/22 Branch at 0745, Routine lactulose 2022-0 Yes 15mL 15 mL, Univer s (CEPHULAC) 12-31 Oral, BID, ity of solution 15 01:00: First dose [place] mL 00 (after Medical last Branch modificati on) on Thu12/30/22 at 2000, Until Discontinu ed, Routine spironolact 2022-0 Yes 50mg 50 mg, Univ ers one 12-30 Oral, ity of (ALDACTONE) 14:00: DAILY, [place] tablet 50 00 First dose Medi loki mg (after Branch last modificati on) on Thu12/30/22 at 0900, Until Discontinu ed, Routine furosemide 2022-0 Yes 20mg 20 mg, Unive rs (LASIX) 12-30 Oral, ity of tablet 20 14:00: DAILY, [place] mg 00 First dose Medical (after Branch last modificati on) on Thu12/30/22 at 0900, Until Discontinu ed, Routine KCL 20 2022-0 2022- No 20meq 20 mEq, Univer s mEq/15 mL 12-29 Oral, ity of solution 20 21:00: 21:11 ONCE, 1 [place] mEq 00 :00 dose, On Medical Thu12/29/22 Branch at 1600, Routine KCL 20 2022-0 2022- No 40meq 40 mEq, Univer s mEq/15 mL 12-29 Oral, Q2H, ity of solution 40 13:00: 15:07 2 doses, [place] mEq 00 :00 First dose Medical on Thu12/29/22 at 0800, Last dose on Thu12/29/22 at 1000, Routine magnesium 2022-0 2022- No 2g 2 g, IV Univ ers sulfate in 12-29 Piggyback, it y of water 2 12:45: 13:53 Administer [place] gram/50 mL 00 :00 over 60 Medica l (4 %) Minutes, Branch infusion 2 ONCE, 1 g dose, On Thu12/29/22 at 0745, Routine magnesium 2022-0 2022- No 4g 4 g, IV Univ ers sulfate in 12-28 Piggyback, it y of water 4 22:30: 01:06 at 25 [place] gram/50 mL 00 :00 mL/hr Medical (8 %) IV Administer Branc h Piggyback 4 over 120 g Minutes, ONCE, 1 dose, On [place] 12/28/22 at 1730, Routine KCL 20 2022-0 2022- No 40meq 40 mEq, Univer s mEq/15 mL 12-28 Oral, Q2H, ity of solution 40 21:45: 00:59 2 doses, [place] mEq 00 :00 First dose Medical on [place] 12/28/22 at 1645, Last dose on [place] 12/28/22 at 1800, Routine lactulose 2022-0 202- No 15mL 15 mL, Unive rs (CEPHULAC) 12-28 Oral, TID, it y of solution 15 19:00: 13:47 First dose [place] mL 00 :30 (after Medical last Branch modificati on) on [place] 12/28/22 at 1400, Until Discontinu ed, Routine spironolact 2022- No 100mg 100 mg, U nivers one 12-2806 Oral, ity of (ALDACTONE) 14:00: 12:40 DAILY, [place] tablet 100 00 :13 First dose Med ical mg (after Branch last modificati on) on [place] 12/28/22 at 0900, Until Discontinu ed, Routine lactulose 2022- No 15mL 15 mL, Unive rs (CEPHULAC) 12-28 Oral, ity of solution 15 14:00: 17:08 DAILY, [place] mL 00 :31 First dose Medical (after Branch last modificati on) on [place] 12/28/22 at 0900, Until Discontinu ed, Routine levETIRAcet Yes 750mg 750 mg, Un valente am (KEPPRA) 12-28 Oral, BID, it y of tablet 750 02:30: First dose [place] mg 00 on [facility] 12/27/22 at Branch 2130, Until Discontinu ed, Routine spironolact 2022- No 50mg 50 mg, Uni vers one 12-28 Oral, ONCE ity of (ALDACTONE) 01:00: 01:32 AT 1999, 1 [place] tablet 50 00 :00 dose, On Medica l mg [facility] 12/27/22 Branch at 2000, Routine spironolact 2022- No 50mg 50 mg, Uni vers one 12-27 Oral, ity of (ALDACTONE) 14:00: 16:00 DAILY, [place] tablet 50 00 :40 First dose Medi loki mg (after Branch last modificati on) on [facility] 12/27/22 at 0900, Until Discontinu ed, Routine lactulose 2022- No 15mL 15 mL, Unive rs (CEPHULAC) 12-27 Oral, TID, it y of solution 15 13:00: 16:00 First dose [place] mL 00 :40 on [facility] 12/27/22 at Branch 0800, Until Discontinu ed, Routine KCL 20 2022- No 40meq 40 mEq, Univer s mEq/15 mL 12-27 Oral, ity of solution 40 11:45: 13:59 ONCE, 1 [place] mEq 00 :00 dose, On Medical Thu12/27/22 Branch at 0645, Routine levETIRAcet 2022- No [id number] 500mg Take 1 Univers am 500 mg 12-27 tablet by ity of tablet 00:00: 00:00 mouth in [place] 00 :00 the Medical morning Branch and 1 tablet in the evening. Do all this for 30 days. KCL 20 2022- No 40meq 40 mEq, Univer s mEq/15 mL 12-26 Oral, ity of solution 40 22:30: 22:49 ONCE, 1 [place] mEq 00 :00 dose, On Medical Thu12/26/22 Branch at 1730, Routine potassium 2022- No 20meq 20 mEq, IV Univers chloride in 12-26 Piggyback, i ty of water (KCL) 13:00: 19:44 Q2H, 3 [place] 20 mEq/100 00 :00 doses, Medical mL RTU IVPB First dose Br anch 20 mEq on Thu12/26/22 at 0800, Last dose on Thu12/26/22 at 1200, 100 mL glycerin/mi 2022- No 225mL 225 mL, U nivers neral oil 12-26 Rectal, ity of (AGLO 12:45: 15:25 ONCE, 1 [place] ENEMA) 00 :00 dose, On Medical (COMPOUNDED Thu12/26/22 Br anch ) Enem 225 at 0745, mL Routine potassium 2022- No 20meq 20 mEq, IV Univers chloride in 12-26 Piggyback, i ty of water (KCL) 01:00: 08:35 Q2H, 2 [place] 20 mEq/100 00 :00 doses, Medical mL RTU IVPB First dose Br anch 20 mEq on Thu12/25/22 at 2000, Last dose on Thu12/25/22 at 2200, 100 mL magnesium 2022- No 4g 4 g, IV Univ ers sulfate in 12-25 Piggyback, it y of water 4 23:15: 00:30 at 25 [place] gram/50 mL 00 :00 mL/hr Medical (8 %) IV Administer Branc h Piggyback 4 over 120 g Minutes, ONCE, 1 dose, On Thu12/25/22 at 1815, Routine hydrALAZINE 2022-2022- No 25mg 25 mg, Uni vers (APRESOLINE 12-25 Oral, TID, i ty of ) tablet 25 19:00: 16:00 First dose [place] mg 00 :40 on [place] [facility] 12/25/22 at Branch 1400, Until Discontinu ed, Routine potassium 2022-0 202- No 20meq 20 mEq, IV Univers chloride in 12-25 Piggyback, i ty of water (KCL) 11:00: 15:29 Q2H, 2 [place] 20 mEq/100 00 :00 doses, Medical mL RTU IVPB First dose Br anch 20 mEq on Thu12/25/22 at 0600, Last dose on Thu12/25/22 at 0800, 100 mL potassium 2022-0 2022- No 20meq 20 mEq, IV Univers chloride in 12-25 Piggyback, i ty of water (KCL) 08:15: 10:11 ONCE, 1 [place] 20 mEq/100 00 :00 dose, On Medic al mL RTU IVPB Thu12/25/22 Br anch 20 mEq at 0315, 100 mL potassium 2022-0 2022- No 20meq 20 mEq, IV Univers chloride in 12-25 Piggyback, i ty of water (KCL) 03:00: 06:59 Q2H, 2 [place] 20 mEq/100 00 :00 doses, Medical mL RTU IVPB First dose Br anch 20 mEq on Thu12/24/22 at 2200, Last dose on Thu12/25/22 at 0000, 100 mL magnesium 3-0 2022- No 2g 2 g, IV Univ ers sulfate in 12-24 Piggyback, it y of water 2 16:15: 21:26 Administer [place] gram/50 mL 00 :00 over 60 Medica l (4 %) Minutes, Branch infusion 2 ONCE, 1 g dose, On Thu12/24/22 at 1115, Routine potassium 2022-0 2022- No 40meq 40 mEq, Uni vers chloride 40 12-24 Intravenou i ty of mEq in 100 11:15: 16:14 s, ONCE, 1 [place] mL IVPB 00 :00 dose, On Medical [facility] Branch 12/24/22 at 0615, 100 mL propranoloL 2022- No 10mg 10 mg, Uni vers (INDERAL) 12-24 Oral, BID, ity of tablet 10 01:00: 15:26 First dose [place] mg 00 :44 (after Medical last Branch modificati on) on Thu12/23/22 at 2000, Until Discontinu ed, Routine iopamidol 2022- No [id number] 80mL 80 mL, U nivers (ISOVUE 12-23 Intravenou ity o f 300-500 mL) 21:30: 20:27 s, ONCE, 1 [place] injection 00 :00 dose, On Medica l 80 mL Thu [place] 12/23/22 at 1630, Routine magnesium 2022- No 2g 2 g, IV Univ ers sulfate in 12-23 Piggyback, it y of water 2 13:00: 14:59 Administer [place] gram/50 mL 00 :00 over 60 Medica l (4 %) Minutes, Branch infusion 2 ONCE, 1 g dose, On Thu12/23/22 at 0800, Routine KCL 20 2022- No 40meq 40 mEq, Univer s mEq/15 mL 12-23 Oral, ity of solution 40 11:30: 10:52 ONCE, 1 [place] mEq 00 :00 dose, On [facility] Branch 12/23/22 at 0630, Routine calcium 2022- No 2g 2 g, IV Univer s gluconate 2 12-23 Infusion, it y of g in NaCl 11:30: 11:29 at 200 [place] 100 mL 00 :00 mL/hr Medical (ISO-OSM) Administer Bran ch RTU IV over 30 infusion 2 Minutes, g ONCE, 1 dose, On Thu12/23/22 at 0630, Routine escitalopra Yes 20mg 20 mg, Univ ers m oxalate 12-22 Oral, ity of (LEXAPRO) 14:00: DAILY, [place] tablet 20 00 First dose Medi loki mg on Thu Branch 12/22/22 at 0900, Until Discontinu ed, Routine furosemide 2022- No 40mg 40 mg, Univ ers (LASIX) 12-22 06-06 Oral, ity of tablet 40 14:00: 12:40 DAILY, [place] mg 00 :13 First dose Medical on [facility] 12/22/22 at 0900, Until Discontinu ed, Routine spironolact 2022- No 25mg 25 mg, Uni vers one 12-2202 Oral, ity of (ALDACTONE) 14:00: 17:09 DAILY, [place] tablet 25 00 :08 First dose Medi loki mg on [facility] 12/22/22 at 0900, Until Discontinu ed, Routine propranoloL 2022- No 20mg 20 mg, Uni vers (INDERAL) 12-2230 Oral, BID, ity of tablet 20 13:00: 18:15 First dose [place] mg 00 :27 (after Medical last Branch modificati on) on [facility] 12/22/22 at 0800, Until Discontinu ed, Routine levothyroxi Yes 25ug 25 mcg, Uni vers ne 12-22 Oral, ity of (SYNTHROID) 11:00: QAM-0600, [place] tablet 25 00 First dose Medi loki mcg on [facility] 12/22/22 at 0600, Until Discontinu ed, Routine furosemide 2022- No 40mg 40 mg, Univ ers (LASIX) 12-22 Slow IV ity of injection 02:45: 02:09 Push, [place] 40 mg 00 :00 ONCE, 1 Medical dose, On Branch [place] 12/21/22 at 2145, Routine QUEtiapine Yes 25mg 25 mg, Unive rs (SEROQUEL) 12-22 Oral, QHS, ity of tablet 25 02:00: First dose [place] mg 00 on [facility] 12/21/22 at Branch 2100, Until Discontinu ed, Routine NaCl 0.9% No 1000mL at 42 [facility] [place] [facility] ers (NS) IV 12-22 06-03 mL/hr, IV ity of infusion 02:00: 16:00 Infusion, [place] as 1,000 mL 00 :56 CONTINUOUS Medic al , Starting Branch on [place] 12/21/22 at 2100, Until 12/27/22 at 1100, Routine proMETHazin Yes 12.5mg 12.5 mg, Univers e 12-22 Oral, ity of (PHENERGAN) 01:53: Q6HPRN, [place] tablet 12.5 39 Starting Medi loki mg on [place] 12/21/22 at 2052, Until Discontinu ed, Routine, Nausea and Vomiting (N/V) potassium 2022- No 20meq 20 mEq, IV Univers chloride in 12-22 Piggyback, i ty of water (KCL) 01:00: 06:14 Q2H, 2 [place] 20 mEq/100 00 :00 doses, Medical mL RTU IVPB First dose Br anch 20 mEq on [place] 12/21/22 at 2000, Last dose on [place] 12/21/22 at 2200, 100 mL amantadine Yes 100mg 100 mg, Uni vers HCL 12-21 Oral, QAM ity of (SYMMETREL) 22:00: + NOON, [place] capsule 100 00 First dose Me dical mg on [place] 12/21/22 at 1700, Until Discontinu ed, Routine QUEtiapine 2022- No 25mg 25 mg, [facility] [place] [facility] ers (SEROQUEL) 12-21 Oral, TID, it y of tablet 25 19:00: 20:05 First dose [place] mg 00 :38 (after Medical last Branch modificati on) on [place] 12/21/22 at 1400, Until Discontinu ed, Routine levETIRAcet 2022- No 750mg 750 mg, IV Univers am (KEPPRA) 12-21 0604 Piggyback, i ty of 750 mg in 01:00: 02:16 Q12H, [place] NaCl 0.9% 00 :44 First dose Medi loki (NS) 100 mL on [facility] Branch IV infusion 12/20/22 at 1999, Until Discontinu ed, Administer over 15 Minutes, 100 mL QUEtiapine 2022- No 50mg 50 mg, Univ ers (SEROQUEL) 12-21 Oral, BID, it y of tablet 50 01:00: 17:47 First dose [place] mg 00 :21 (after Medical last Branch modificati on) on [facility] 12/20/22 at 1999, Until Discontinu ed, Routine hydralAZINE Yes 20mg 20 mg, Univ ers (APRESOLINE 12-21 Slow IV ity o f ) injection 00:22: Push, [place] 20 mg 45 Q1HPRN, Medical Starting Branch on 12/20/22 at 1922, Until Discontinu ed, Routine, sbp goal <16 0 oxazepam 2022- No 10mg 10 mg, Univer s (SERAX) 12-20 Oral, ity of capsule 10 17:42: 17:47 BIDPRN, [place] mg 40 :21 Starting Medical on [facility] Branch 12/20/22 at 1242, Until 12/21/22 at 1247, Routine, Sleep, anxiety thiamine 2022- Yes 100mg 100 mg, Unive rs (VITAMIN 12-20 Oral, ity of B1) tablet 14:00: DAILY, [place] 100 mg 00 First dose Medical (after Branch last modificati on) on [facility] 12/20/22 at 0900, Until Discontinu ed, Routine foLIC acid Yes 1mg 1 mg, Univer s (FOLATE) 12-20 Oral, ity of tablet 1 mg 14:00: DAILY, [place] 00 First dose Medical (after Branch last modificati on) on [facility] 12/20/22 at 0900, Until Discontinu ed, Routine amLODIPine Yes 10mg 10 mg, Unive rs (NORVASC) 12-20 Oral, ity of tablet 10 14:00: DAILY, [place] mg 00 First dose Medical on [facility] Branch 12/20/22 at 0900, Until Discontinu ed, Routine KCL 2022- No 40meq 40 mEq, Univers (KLOR-CON 12-20 Oral, ity of M20) tablet 14:00: 14:30 DAILY, [place] 40 mEq 00 :23 First dose Medical on Sat Branch 12/20/22 at 0900, Until Discontinu ed, Routine lactulose 2022- No 30mL 30 mL, Unive rs (CEPHULAC) 12-2030 Oral, ity of solution 30 14:00: 12:08 DAILY, [place] mL 00 :16 First dose Medical (after Branch last modificati on) on [facility] 12/20/22 at 0900, Until Discontinu ed, Routine potassium No 40meq 40 mEq, Uni vers chloride 40 12-20 Intravenou i ty of mEq in 100 12:45: 18:02 s, ONCE, 1 [place] mL IVPB 00 :00 dose, On Medical Sat Branch 12/20/22 at 0745, 100 mL hydralAZINE 2022- No 20mg 20 mg, Uni vers (APRESOLINE 12-20 Slow IV ity of ) injection 06:45: 00:23 Push, [place] 20 mg 00 :02 Q1HPRN, Medical Starting Branch on 12/20/22 at 0145, Until 12/20/22 at 1923, Routine, sbp goal <140 QUEtiapine 2022- No 25mg 25 mg, Univ ers (SEROQUEL) 12-20 Oral, ity of tablet 25 06:15: 05:41 ONCE, 1 [place] mg 00 :00 dose, On Medical Sat Branch 12/20/22 at 0115, Routine NaCl 0.9% 2022- No 1000mL at 100 Uni vers (NS) IV 12-20 05-29 mL/hr, IV ity of infusion 03:00: 01:47 Infusion, [place] 1,000 mL 00 :34 CONTINUOUS Medic al , Starting Branch on Thu12/19/22 at 2200, Until Thu12/21/22 at 2047, Routine losartan Yes 50mg 50 mg, Univers (COZAAR) 12-20 Oral, BID, ity o f tablet 50 01:00: First dose [place] mg 00 (after Medical last Branch modificati on) on Thu12/19/22 at 1999, Until Discontinu ed, Routine rifAXIMin Yes 550mg 550 mg, Univ ers (XIFAXAN) 12-20 Oral, BID, ity of tablet 550 01:00: First dose [place] mg 00 (after Medical last Branch modificati on) on Thu12/19/22 at 1999, Until Discontinu ed, Routine
Reason for Anti-Infec tive: Empiric Non-Surgic al Prophylaxi s
Durat ion of therapy: 5 days
Sp ecific indication : home med levETIRAcet 2022- No 750mg 750 mg, U nivers am (KEPPRA) 12-20 Oral, BID, i ty of tablet 750 01:00: 14:15 First dose [place] mg 00 :33 on [facility] 12/19/22 at [place] 1999, Until Discontinu ed, Routine QUEtiapine 2022- No 25mg 25 mg, Univ ers (SEROQUEL) 12-20 Oral, BID, it y of tablet 25 01:00: 16:28 First dose [place] mg 00 :44 on Thu [facility] 12/19/22 at [place] 1999, Until Discontinu ed, Routine carvediloL No 6.25mg 6.25 mg, Univers (COREG) 12-19 Oral, BID ity of tablet 6.25 22:00: 14:22 MEALS, [place] mg 00 :56 First dose Medical on Thu [place] 12/19/22 at 1700, Until Discontinu ed, Routine morpHINE (4 Yes 1mg 1 mg, Slow Univers mg/mL) 12-19 IV Push, ity of injection 1 21:45: Q4HPRN, [place] mg 00 Starting Medical on Thu [place] 12/19/22 at 1645, Until Discontinu ed, Routine, Pain (scale 7-10) HYDROcodone Yes 1{tbl} 1 tablet, Univers -acetaminop 12-19 Oral, ity of hen (NORCO 21:31: Q6HPRN, [place] 5) 5-325 mg 38 Starting Medi loki tablet 1 on Thu [place] tablet 12/19/22 at 1631, Until Discontinu ed, Routine, Pain (scale 4-6) cefTRIAXone 2022- No 2000mg 2,000 mg, Univers (ROCEPHIN) 12-19 0601 IV ity of 2,000 mg in 17:15: 18:27 Piggyback, [place] NaCl 0.9% 00 :00 Q24H ABX, Medic al (NS) 100 mL 7 doses, Bran ch MINI-BAG First dose on Thu12/19/22 at 1215, Last dose on Thu12/25/22 at 1215, Administer over 30 Minutes, 100 mL
Reas on for Anti-Infec tive: Documented Infection< br>Documen mike Infection Site: Urine
D uration of Therapy: 7 days barium 2022- No [id number] 30mL 30 mL, Univ ers sulfate-NO 12-19 Oral, ity of CHARGE- 17:00: 17:00 ONCE, 1 [place] (VARIBAR 00 :00 dose, On Medical NECTOR) 40 Thu Branch % (w/v) 12/19/22 at oral 1200, suspension Routine 30 mL barium 2022- No [id number] 30g 30 g, Unive rs sulfate 12-19 Oral, ity of (VARIBAR 17:00: 17:00 ONCE, 1 [place] THIN 00 :00 dose, On Medical LIQUID) 81 Thu Branch % (w/w) 12/19/22 at oral powder 1200, 30 g Routine enoxaparin Yes 40mg 40 mg, Unive rs (LOVENOX) 12-19 Subcutaneo ity of injection 14:00: us, Q24H, [place] 40 mg 00 First dose Medical on Thu Branch 12/19/22 at 0900, Until Discontinu ed, Routine pantoprazol 2022- No 40mg 40 mg, Uni vers e 12-19 Enteral, ity of (PROTONIX) 14:00: 21:34 DAILY, [place] 2 mg/mL 00 :17 First dose Medica l oral on Thu Branch suspension 12/19/22 at 40 mg 0900, Until Discontinu ed, Routine carvedilol No 6.25mg 6.25 mg, Univers (COREG) 12-18 Enteral, ity of 1.25 mg/mL 22:00: 21:34 BID MEALS, [place] oral 00 :17 First dose Medical suspension (after Branch 6.25 mg last modificati on) on [place] 12/18/22 at 1700, Until Discontinu ed, Routine KCL 20 2022- No 40meq 40 mEq, Univer s mEq/15 mL 12-18 Enteral, ity o f solution 40 14:00: 21:34 DAILY, [place] mEq 00 :17 First dose Medical on [place] Branch 12/18/22 at 0900, Until Discontinu ed, Routine thiamine No 100mg 100 mg, Univ ers (VITAMIN 12-18 Enteral, ity of B1) tablet 14:00: 21:34 DAILY, [place] 100 mg 00 :18 First dose Medical (after Branch last modificati on) on [facility] 12/18/22 at 0900, Until Discontinu ed, Routine lactulose 2022- No 30mL 30 mL, Unive rs (CEPHULAC) 12-18 Enteral, ity of solution 30 14:00: 21:34 DAILY, [place] mL 00 :18 First dose Medical (after Branch last modificati on) on [facility] 12/18/22 at 0900, Until Discontinu ed, Routine foLIC acid No 1mg 1 mg, Unive rs (FOLATE) 12-18 Enteral, ity of tablet 1 mg 14:00: 21:34 DAILY, [place] 00 :18 First dose Medical (after Branch last modificati on) on [facility] 12/18/22 at 0900, Until Discontinu ed, Routine docusate 2022- No 100mg 100 mg, Univ ers (COLACE) 50 12-18 Enteral, ity of mg/5 mL 14:00: 21:34 DAILY, [place] solution 00 :17 First dose Medic al [address] [facility] 12/18/22 at 0900, Until Discontinu ed, Routine KCL 20 2022- No 40meq 40 mEq, Univer s mEq/15 mL 12-18 Oral, Q2H, ity of solution 40 13:00: 15:04 2 doses, [place] mEq 00 :00 First dose Medical on [facility] 12/18/22 at 0800, Last dose on [facility] 12/18/22 at 1000, Routine ipratropium 2022- No 3mL 3 mL, Univ ers -albuteroL 12-18 Inhalation it y of (DUONEB) 06:00: 19:08 , QID, [place] 0.5 mg-3 00 :15 First dose Medic al mg(2.5 mg (after Branch base)/3 mL last nebulizer modificati solution 3 on) on [facility] 12/18/22 at 0100, Until Discontinu ed, Routine morpHINE (4 2022- No 2mg 2 mg, Slow Univers mg/mL) 12-18 IV Push, ity of injection 2 05:41: 21:34 Q3HPRN, [place] mg 55 :18 Starting Medical on [place] Branch 12/18/22 at 0041, Until Thu12/19/22 at 1634, Routine, Pain (scale 4-6) rifAXIMin No 550mg 550 mg, Uni vers (XIFAXAN) 12-18 Enteral, ity o f tablet 550 01:00: 21:34 BID, First [place] mg 00 :18 dose Medical (after Branch last modificati on) on Thu12/17/22 at 1999, Until Discontinu ed, Routine
Reason for Anti-Infec tive: Empiric Non-Surgic al Prophylaxi s
Durat ion of therapy: 5 days
Sp ecific indication : home med losartan 2022- No 50mg 50 mg, Univer s (COZAAR) 12-18 Enteral, ity of tablet 50 01:00: 21:34 BID, First [place] mg 00 :18 dose Medical (after Branch last modificati on) on Thu12/17/22 at 1999, Until Discontinu ed, Routine levETIRAcet No 750mg 750 mg, U nivers am (KEPPRA) 12-18 Enteral, ity of 100 mg/mL 01:00: 21:34 BID, First [place] oral 00 :17 dose on Medical solution Thu Branch 750 mg 12/17/22 at 1999, Until Discontinu ed, Routine niCARdipine 2022- No 2.5mg/h 2.5-15 Univers (CARDENE 12-18 mg/hr ity of I.V.) 40 mg 00:50: 21:34 (12.5-75 [place] in NaCL 200 04 :17 mL/hr), IV Me dical mL (RTU) Infusion, Branch infusion TITRATE, SBP goal < 140, Starting on Thu12/17/22 at 1950
In itiate infusion at 2.5 mg/hr.&nbs p; Ti trate by 2.5 mg/hr every 5 minutes to 15 minutes as needed to achieve and maintain goal blood pressure. Maximum dose = 15 mg/hr. If goal not maintained at maximum allowed dose, contact prescriber .
piperacilli 0 2022- No 3.375g 3.375 g, Univers n-tazobacta 12-17 IV ity of m (ZOSYN) 19:30: 16:04 Piggyback, [place] 3.375 g in 00 :21 Q8H ABX, Medic al NaCl 0.9% 21 doses, Branc h (NS) 100 mL First dose MINI-BAG on Thu12/17/22 at 1430, Last dose on Thu12/24/22 at 0630, Administer over 4 Hours, 100 mL
Reas on for Anti-Infec tive: Documented Infection& lt;br>Docu mented Infection Site: Respirator y
Durat ion of Therapy: 7 days amLODIPine 2022- No 10mg 10 mg, Univ ers benzoate 12-17 Enteral, ity of (KATERZIA) 17:15: 21:34 DAILY, [place] 1 mg/mL 00 :17 First dose Medica l oral on Thu suspension 12/17/22 at 10 mg 1215, Until Discontinu ed, Routine acetaminoph Yes 650mg 650 mg, Un valente en 12-17 Enteral, ity of (TYLENOL) 16:21: Q6HPRN, [place] tablet 650 07 Starting Medic al mg on Thu Branch 12/17/22 at 1121, Until Discontinu ed, Routine, Pain (scale 1-3), fever piperacilli 2022- No 3.375g 3.375 g, Univers n-tazobacta 12-17 IV ity of m (ZOSYN) 11:45: 11:54 Piggyback, [place] 3.375 g in 00 :00 ONCE, 1 Medica l NaCl 0.9% dose, On Branch (NS) 100 mL Wed MINI-BAG 12/17/22 at 0645, Administer over 30 Minutes, 100 mL
Reas on for Anti-Infec tive: Documented Infection< br>Documen mike Infection Site: Respirator y
Du ration of Therapy: 14 days vancomycin 2022- No 15mg/kg 1,250 mg Univers 1,250 mg in 12-17 (rounded ity of NaCl 0.9% 11:00: 16:04 from 1,137 [place] (NS) 250 mL 00 :21 mg = 15 Medic al VIAL-MATE mg/kg Branch IV ?75.8 kg), piggyback IV Piggyback, Q12H ABX, 28 doses, First dose on Thu12/17/22 at 0600, Last dose on Thu12/30/22 at 1800, Administer over 90 Minutes, 250 mL
Reas on for Anti-Infec tive: Documented Infection< br>Documen mike Infection Site: Respirator y
Du ration of Therapy: 7 days acetaminoph 2022- No 650mg 650 mg, U nivers en 12-17 Oral, ity of (TYLENOL) 08:15: 16:21 Q6HPRN, [place] tablet 650 15 :56 Starting Medic al mg on Thu12/17/22 at 0315, Until Thu12/17/22 at 1121, Routine, Pain (scale 1-3), fever levETIRAcet 2022- No 750mg 750 mg, U nivers am (KEPPRA) 12-17 Oral, BID, i ty of tablet 750 01:00: 16:21 First dose [place] mg 00 :55 (after Medical last Branch modificati on) on Thu12/16/22 at 1999, Until Discontinu ed, Routine losartan 2022- No 50mg 50 mg, Univer s (COZAAR) 12-17 Oral, BID, ity of tablet 50 01:00: 16:21 First dose [place] mg 00 :56 (after Medical last Branch modificati on) on Thu12/16/22 at 1999, Until Discontinu ed, Routine levETIRAcet 2022- No 500mg 500 mg, IV Univers am (KEPPRA) 12-16 Piggyback, i ty of in NACL 18:30: 18:33 ONCE, 1 [place] (ISO-OS) 00 :00 dose, On Medical 500 mg/100 [facility] mL RTU 12/16/22 at 1330, Administer over 15 Minutes, 100 mL losartan No 25mg 25 mg, Univer s (COZAAR) 12-16 Oral, ity of tablet 25 16:15: 16:20 ONCE, 1 [place] mg 00 :00 dose, On Medical [facility] 12/16/22 at 1115, Routine niCARdipine No 2.5mg/h 2.5-15 Univers (CARDENE 12-16 mg/hr ity of I.V.) 40 mg 15:18: 16:21 (12.5-75 [place] in NaCL 200 48 :55 mL/hr), IV Me dical mL (RTU) Infusion, Branch infusion TITRATE, SBP goal <140, Starting on Thu12/16/22 at 1018
In itiate infusion at 2.5 mg/hr.&nbs p; Ti trate by 2.5 mg/hr every 5 minutes to 15 minutes as needed to achieve and maintain goal blood pressure. Maximum dose = 15 mg/hr. If goal not maintained at maximum allowed dose, contact prescriber .
docusate No 100mg 100 mg, Univ ers (COLACE) 12-16 Oral, ity of capsule 100 14:30: 16:21 DAILY, [place] mg 00 :55 First dose Medical (after Branch last modificati on) on Thu12/16/22 at 0930, Until Discontinu ed, Routine lactulose No 30mL 30 mL, Unive rs (CEPHULAC) 12-16 Oral, ity of solution 30 14:00: 16:21 DAILY, [place] mL 00 :56 First dose Medical (after Branch last modificati on) on Thu12/16/22 at 0900, Until Discontinu ed, Routine thiamine No 100mg 100 mg, Univ ers (VITAMIN 12-16 Oral, ity of B1) tablet 14:00: 16:21 DAILY, [place] 100 mg 00 :56 First dose Medical on [facility] 12/16/22 at 0900, Until Discontinu ed, Routine omeprazole No 20mg 20 mg, Univ ers (PRILOSEC) 12-16 Oral, ity of capsule 20 14:00: 16:21 DAILY, [place] mg 00 :55 First dose Medical on [facility] 12/16/22 at 0900, Until Discontinu ed, Routine foLIC acid No 1mg 1 mg, Unive rs (FOLATE) 12-16 Oral, ity of tablet 1 mg 14:00: 16:21 DAILY, [place] 00 :56 First dose Medical on [facility] 12/16/22 at 0900, Until Discontinu ed, Routine acetaminoph No 650mg 650 mg, U nivers en 12-16 Oral, ity of (TYLENOL) 13:44: 08:15 Q6HPRN, [place] tablet 650 57 :25 Starting Medic al mg on [facility] 12/16/22 at 0844, Until Thu12/17/22 at 0315, Routine, Pain (scale 1-3) rifAXIMin No 550mg 550 mg, Uni vers (XIFAXAN) 12-16 Oral, BID, ity of tablet 550 01:00: 16:21 First dose [place] mg 00 :56 on [facility] 12/15/22 at [place] 1999, Until Discontinu ed, Routine
Reason for Anti-Infec tive: Empiric Non-Surgic al Prophylaxi s
Durat ion of therapy: 5 days
Sp ecific indication : home med losartan No 25mg 25 mg, Univer s (COZAAR) 12-16 Oral, BID, ity of tablet 25 01:00: 15:24 First dose [place] mg 00 :32 on [facility] 12/15/22 at [place] 1999, Until Discontinu ed, Routine lidocaine No 10mL 10 mL, Unive rs 1% 12-15 Infiltrati ity of (XYLOCAINE) 15:00: 15:00 on, ONCE, [place] 10 mg/mL (1 00 :00 1 dose, On Me dical %) Mon Branch injection 12/15/22 at 10 mL 1000, Routine potassium 2022- No 30mmol 30 mmol, U nivers phosphate 12-15 IV ity of 30 mmol in 10:30: 14:34 Piggyback, [place] NaCl 0.9% 00 :00 ONCE, 1 Medical (NS) 250 mL dose, On Bran ch piggyback 12/15/22 at 0530, 250 mL magnesium 2022- No 2g 2 g, IV Univ ers sulfate in 12-15 Piggyback, it y of water 2 10:30: 11:28 Administer Ivnce as gram/50 mL 00 :00 over 60 Medica l (4 %) Minutes, Branch infusion 2 ONCE, 1 g dose, On [facility] 12/15/22 at 0530, Routine KCL 20 2022- No 40meq 40 mEq, Univer s mEq/15 mL 12-14 Enteral, ity o f solution 40 15:15: 17:05 ONCE, 1 [place] mEq 00 :00 dose, On Medical [place] 12/14/22 at 1015, Routine NaCl 0.45% 2022- No 1000mL at 30 Uni vers (1/2NS) IV 12-14 mL/hr, ity of infusion 05:15: 15:24 1,000 mL, [place] 1,000 mL 00 :05 IV Medical Infusion, Branch CONTINUOUS , Starting on [place] 12/14/22 at 0015, Until Thu12/16/22 at 1024, Routine lactulose 2022- No 30mL 30 mL, Unive rs (CEPHULAC) 12-13 Enteral, ity of solution 30 14:00: 13:44 DAILY, [place] mL 00 :50 First dose Medical (after Branch last modificati on) on [facility] 12/13/22 at 0900, Until Discontinu ed, Routine omeprazole 2022- No 20mg 20 mg, Univ ers compounding 12-13 Enteral, ity of kit 14:00: 13:44 DAILY, [place] (FIRST-OMEP 00 :50 First dose Me dical RAZOLE) 2 on [facility] Branch mg/mL oral 12/13/22 at suspension 0900, 20 mg Until Discontinu ed, Routine docusate No 100mg 100 mg, Univ ers (COLACE) 50 12-13 Enteral, ity of mg/5 mL 14:00: 13:44 DAILY, [place] solution 00 :50 First dose Medic al 100 mg on Sat Branch 12/13/22 at 0900, Until Discontinu ed, Routine oxyCODONE No 5mg 5 mg, Univer s immediate 12-13 Enteral, ity o f release 01:54: 13:44 Q4HPRN, [place] tablet 5 mg 20 :50 Starting Medi loki on Thu Branch 12/12/22 at 2054, Until Tu12/16/22 at 0844, Routine, Pain (scale 4-6)
Fa culty member approving Restricted medication : NEERU [place] NaCl 0.9% 2022- No 1000mL at 30 Univ ers (NS) IV 12-13 05-21 mL/hr, IV ity of infusion 01:30: 04:13 Infusion, [place] 1,000 mL 00 :23 CONTINUOUS Medic al , Starting Branch on Thu12/12/22 at 2030, Until 12/13/22 at 2313, Routine sodium 2022- No 500mL IV Univers chloride 3 12-13-20 Infusion, ity of % 01:30: 21:16 at 40 [place] HYPERTONIC 00 :37 mL/hr, Medical infusion CONTINUOUS Branc h 500 mL , Starting on Thu12/12/22 at 2030, Until 12/13/22 at 1616, ELIZABETH lactulose 2022- No 30mL 30 mL, Unive rs (CEPHULAC) 12-13- Oral, ity of solution 30 01:30: 01:54 DAILY, [place] mL 00 :47 First dose Medical on Thu Branch 12/12/22 at 2030, Until Discontinu ed, Routine sodium 2022- No 500mL IV Univers chloride 3 12-12- Infusion, ity of % 20:45: 01:20 at 30 [place] HYPERTONIC 00 :03 mL/hr, Medical infusion CONTINUOUS Branc h 500 mL , Starting on Thu12/12/22 at 1545, Until Thu12/12/22 at 2020, ELIZABETH iopamidol 2022- No [id number] 80mL 80 mL, Univers (ISOVUE 12-12 Intravenou ity o f 370-500 mL) 17:45: 17:45 s, ONCE, 1 [place] injection 00 :00 dose, On Medica l 80 mL Thu12/12/22 at 1245, Routine foLIC acid 2022- No 5mg IV Univer s (FOLATE) 12-12 Piggyback, it y of mg in NaCl 14:15: 13:44 DAILY, 7 [place] 0.9% (NS) 00 :50 doses, Medical piggyback First dose Bran ch (after last reorder) on Thu12/12/22 at 0915, Last dose on Thu12/18/22 at 0900, 50 mL thiamine 2022- No 100mg IV Univers (VITAMIN 12-12 Piggyback, ity of B1) 100 mg 14:15: 13:44 DAILY, 7 [place] in NaCl 00 :50 doses, Medical 0.9% (NS) First dose Bran ch piggyback on Thu12/12/22 at 0915, Last dose on Thu12/18/22 at 0900, 50 mL sodium 2022- No 500mL 500 mL, at Uni vers chloride 2 12-12 30 mL/hr, ity of % 14:00: 19:38 IV [place] HYPERTONIC 00 :49 Infusion, Medi loki infusion CONTINUOUS Branc h , Starting on Thu12/12/22 at 0900, Until Thu12/12/22 at 1438 lidocaine 2022-0 2022- No 5mL 5 mL, Univer s 1% (PF) 12-12 Subcutaneo ity o f (XYLOCAINE) 12:00: 15:00 us, ONCE, [place] injection 5 00 :00 1 dose, On Me dical mL Thu12/12/22 at 0700, Routine NaCl 0.9% 2022-0 Yes 10mL 10 mL, Univer s (NS) 12-12 Slow IV ity of injection 11:49: Push, PRN, [place] 10 mL 47 Starting Medical on Thu12/12/22 at 0649, Until Discontinu ed, Routine, line maintenanc e ceFAZolin 2022- No 1000mg 1,000 mg, Univers (ANCEF) 12-12 Intravenou ity o f 1,000 mg in 06:15: 14:09 s, Q8H [place] NaCl 0.9% 00 :29 ABX, 21 Medical (NS) 100 mL doses, [place] MINI-BAG First dose on Thu12/12/22 at 0115, Last dose on Thu12/18/22 at 1715, Administer over 30 Minutes, 100 mL
Reas on for Anti-Infec tive: Surgical Prophylaxi s
Surgi loki Prophylaxi s: Neurosurge ry
Dura tion of therapy: within 24 hours of surgery midazolam 2022- No 4mg 4 mg, IV Uni vers (VERSED) 12-12 Push, ity of injection 4 04:15: 04:30 ONCE, 1 [place] mg 00 :00 dose, On Medical [facility] 12/11/22 at 2315, Routine FENTanyl PF 2022- No 100ug 100 mcg, Univers (SUBLIMAZE 12-12 Slow IV ity o f (PF)) 04:15: 04:30 Push, [place] injection 00 :00 ONCE, 1 Medical 100 mcg dose, On [facility] 12/11/22 at 2315, Routine levETIRAcet 2022- No 1000mg 1,000 mg, Univers am (KEPPRA) 12-12 IV ity of in NACL 04:15: 04:07 Piggyback, [place] (ISO-OS) 00 :00 ONCE, 1 Medical 1,000 dose, On Branch mg/100 mL [place] RTU 12/11/22 at 2315, Administer over 15 Minutes, 100 mL levETIRAcet 2022- No 500mg 500 mg, IV Univers am (KEPPRA) 12-12 Piggyback, i ty of in NACL 01:00: 13:44 BID, First [place] (ISO-OS) 00 :50 dose on Medical 500 mg/100 [place] Branch RTU 12/11/22 at 2000, Until Discontinu ed, Administer over 15 Minutes, 100 mL morpHINE (2 2022- No 2mg 2 mg, Slow Univers mg/mL) 12-11 IV Push, ity of injection 2 23:50: 14:17 Q2HPRN, [place] mg 56 :38 Starting Medical on [place] Branch 12/11/22 at 1850, Until Thu12/16/22 at 0917, Routine, Pain (scale 7-10) niCARdipine 2022- No 2.5mg/h 2.5-15 Univers (CARDENE 12-11 mg/hr ity of I.V.) 40 mg 22:24: 13:44 (12.5-75 [place] in NaCL 200 52 :50 mL/hr), IV Me dical mL (RTU) Infusion, Branch infusion TITRATE, sbp GOAL<140, Starting on [place] 12/11/22 at 1724
In itiate infusion at 2.5 mg/hr.&nbs p; Ti trate by 2.5 mg/hr every 5 minutes to 15 minutes as needed to achieve and maintain goal blood pressure. Maximum dose = 15 mg/hr. If goal not maintained at maximum allowed dose, contact prescriber .
NaCl 0.9% 2022- No 1000mL at 50 Univ ers (NS) IV 12-11 05-20 mL/hr, IV ity of infusion 21:30: 01:20 Infusion, [place] 1,000 mL 00 :03 CONTINUOUS Medic al , Starting Branch on [place] 12/11/22 at 1630, Until Thu12/12/22 at 2020, Routine glucagon Yes 1mg 1 mg, Univers (GLUCAGEN 12-11 Intramuscu ity of DIAGNOSTIC 21:25: lar, PRN, [place] KIT) 53 Starting Medical injection 1 on [place] Branch mg 12/11/22 at 1625, Until Discontinu ed, ELIZABETH, Blood Glucose < or = 70 mg/dL and patient is NPO, unable to swallow or has mental changes. dextrose 50 2022-0 Yes 25mL 25 mL, Univ ers % in water 12-11 Slow IV ity of (D50W) 21:25: Push, PRN, [place] injection 53 Starting Medica l 25 mL on [place] Branch 12/11/22 at 1625, Until Discontinu ed, ELIZABETH, Blood Glucose < or = 70 mg/dL and patient is NPO, unable to swallow or has mental status changes. hydralAZINE 2022- No 10mg 10 mg, Uni vers (APRESOLINE 12-11 Slow IV ity of ) injection 21:25: 06:42 Push, [place] 10 mg 25 :30 Q2HPRN, Medical Starting Branch on [place] 12/11/22 at 1625, Until 12/20/22 at 0142, Routine, sbp goal <140 labetaloL 2022- No 20mg 20 mg, Unive rs (NORMODYNE) 12-11 Slow IV ity of injection 21:25: 00:23 Push, [place] 20 mg 10 :02 Q15MIN Medical PRN, Branch Starting on [place] 12/11/22 at 1625, Until 12/20/22 at 1923, Routine, sbp goal <140 oxyCODONE 2022- No 5mg 5 mg, Univer s immediate 12-11 0520 Oral, ity of release 21:24: 01:54 Q4HPRN, [place] tablet 5 mg 29 :47 Starting Medi loki on [place] Branch 12/11/22 at 1624, Until 12/12/22 at 2054, Routine, Pain (scale 4-6)
Fa culty member approving Restricted medication : NEERU [place] niCARdipine Yes 2.5mg/h 2.5-15 U nivers (CARDENE 5-18 mg/hr ity of I.V.) 40 mg 20:35: (12.5-75 [place] in NaCL 200 21 mL/hr), IV Me dical mL (RTU) Infusion, Branch infusion TITRATE, SBP Goal < 180 mmHg, Starting on [place] 12/11/22 at 1535
In itiate infusion at 2.5 mg/hr.&nbs p; Ti trate by 2.5 mg/hr every 5 minutes to 15 minutes as needed to achieve and maintain goal blood pressure. Maximum dose = 15 mg/hr. If goal not maintained at maximum allowed dose, contact prescriber .
carvediloL 2022-0 Yes TAKE ONE Met hodi (COREG) 4-12 (1) st 6.25 MG 00:00: TABLET(S) Hospi ta tablet 00 BY MOUTH l IN THE MORNING AND ONE (1) TABLET IN THE EVENING. NEED APPOINTMEN T FOR FURTHER REFILLS. amLODIPine 2022-0 Yes 10mg QD Take 1 Metho di (NORVASC) 3-31 tablet (10 st 10 mg 00:00: mg total) Hospita tablet 00 by mouth l daily. losartan 3-0 Yes 100mg QD Take 1 Method i (COZAAR) 3-[address] 100 MG 00:00: (100 mg Hospita tablet 00 total) by l mouth daily. omeprazole 2022-0 Yes QD Take by Meth ina (PriLOSEC) 2-[address] 20 MG 00:00: every [facility]ospita capsule 00 morning. l furosemide 2022-0 Yes 40mg QD Take 1 Metho di (LASIX) 40 2-23 tablet (40 st mg tablet 00:00: mg total) Hos bill 00 by mouth l every morning. escitalopra 2022-0 Yes 20mg Take 1 Meth ina m (LEXAPRO) 2-04 tablet (20 st 20 MG 00:00: mg total) Hospita tablet 00 by mouth. l hydrALAZINE 2022-0 Yes 25mg Take 1 Meth ina (APRESOLINE 2-04 tablet (25 st ) 25 MG 00:00: mg total) Hospi ta tablet 00 by mouth. l hydrALAZINE 2022-0 3- No 25mg Take 1 Uni vers 25 mg 2-04 -09 tablet by ity of tablet 00:00: 00:00 mouth. [place] 00 :00 Medical Branch predniSONE 2021-0 2021- No [id number] Take 4 [facility] 10 mg 9-16 09-25 tablets by ity of tablet 00:00: 04:59 mouth [place] 00 :00 daily for Medical 2 days, Branch THEN 3 tablets daily for 2 days, THEN 2 tablets daily for 2 days, THEN 1 tablet daily for 2 days. predniSONE 2022-0 2021- No [id number] Take 4 [facility] 10 mg 9-16 09-25 tablets by ity of tablet 00:00: 04:59 mouth [place] 00 :00 daily for Medical 2 days, Branch THEN 3 tablets daily for 2 days, THEN 2 tablets daily for 2 days, THEN 1 tablet daily for 2 days. OMEPRAZOLE 0 Yes 20mg Take 20 mg U nivers ORAL 9-15 by mouth ity of 15:53: daily. [address] Branch rifaximin 0 Yes 550mg Take 550 Uni vers (XIFAXAN 9-15 mg by ity of ORAL) 15:53: mouth 2 [place] 40 (two) Medical times Branch daily. losartan 0 Yes 100mg Take 100 Univ ers potassium 9-15 mg by ity of (LOSARTAN 15:53: mouth [place] ORAL) 40 daily. Medical Branch spironolact 0 Yes 25mg Take 25 mg Univers one 25 mg 9-15 by mouth ity of tablet 15:53: daily. [address] Branch escitalopra 0 Yes 20mg Take 20 mg [facility] m oxalate 9-15 by mouth ity of 10 mg 15:53: in the [place] tablet 40 morning. Medical Branch carvediloL Yes 6.25mg Take 6.25 [facility] 6.25 mg 9-15 mg by ity of tablet 15:53: mouth 2 [place] [address] (two) Medical times [place] daily with meals. lactulose 0 Yes 1936 15mL Take 15 mL [facility] 10 gram/15 9-15 by mouth 3 ity of mL (15 mL) 15:53: (three) [place] 40 times Medical daily. Branch Take three times per day Indication s: hardening of the liver foLIC acid 0 Yes 1mg Take 1 mg [facility] 1 mg tablet 9-15 by mouth ity of 15:53: in the [place] 40 morning. Medical Branch vitamin B Yes Take by Unive rs complex (B 9-15 mouth ity of COMPLEX 15:53: daily. [place] VITAMINS Medical ORAL) Branch Miscellaneo Yes Dose for [facility] valente us Medical 9-15 Your Liver ity of Supply Liqd 15:53: Supplement [address] Branch OMEPRAZOLE 0 Yes 20mg Take 20 mg U nivers ORAL 9-15 by mouth ity of 15:53: daily. [address] Branch rifaximin 0 Yes 550mg Take 550 Uni vers (XIFAXAN 9-15 mg by ity of ORAL) 15:53: mouth 2 [place] 40 (two) Medical times Branch daily. losartan 0 Yes 100mg Take 100 Univ ers potassium 9-15 mg by ity of (LOSARTAN 15:53: mouth [place] ORAL) 40 daily. Medical Branch spironolact Yes 25mg Take 25 mg [facility] one 25 mg 9-15 by mouth ity of tablet 15:53: daily. [place] [address] Medical Branch escitalopra Yes 20mg Take 20 mg [facility] m oxalate 9-15 by mouth ity of 10 mg 15:53: in the [place] tablet 40 morning. Medical Branch carvediloL Yes 6.25mg Take 6.25 [facility] 6.25 mg 9-15 mg by ity of tablet 15:53: mouth 2 [place] [address] (two) Medical times Branch daily with meals. lactulose Yes 1936 15mL Take 15 mL [facility] 10 gram/15 9-15 by mouth 3 ity of mL (15 mL) 15:53: (three) [place] 40 times Medical daily. Branch Take three times per day Indication s: hardening of the liver foLIC acid Yes 1mg Take 1 mg [facility] 1 mg tablet 915 by mouth ity of 15:53: in the [place] 40 morning. Medical Branch vitamin B Yes Take by Unive rs complex (B 9-15 mouth ity of COMPLEX 15:53: daily. [place] VITAMINS 40 Medical ORAL) Branch Miscellaneo Yes Dose for [facility] valente us Medical 15 Your Liver ity of Supply Liqd 15:53: Supplement [place] [address] Medical Branch OMEPRAZOLE Yes 20mg Take 20 mg U nivers ORAL 9-15 by mouth ity of 15:53: daily. [place] [address] Medical Branch rifaximin Yes 550mg Take 550 [facility] vers (XIFAXAN 9-15 mg by ity of ORAL) 15:53: mouth 2 [place] 40 (two) Medical times Branch daily. losartan 0 Yes 100mg Take 100 Univ ers potassium 9-15 mg by ity of (LOSARTAN 15:53: mouth [place] ORAL) 40 daily. Medical Branch spironolact Yes 25mg Take 25 mg [facility] one 25 mg 9-15 by mouth ity of tablet 15:53: daily. [place] [address] Medical Branch escitalopra Yes 20mg Take 20 mg [facility] m oxalate 9-15 by mouth ity of 10 mg 15:53: in the [place] tablet 40 morning. Medical Branch carvediloL 0 Yes 6.25mg Take 6.25 [facility] 6.25 mg 9-15 mg by ity of tablet 15:53: mouth 2 [place] [address] (two) Medical times Branch daily with meals. lactulose 0 Yes 193 15mL Take 15 mL [facility] 10 gram/15 9-15 by mouth 3 ity of mL (15 mL) 15:53: (three) [place] 40 times Medical daily. Branch Take three times per day Indication s: hardening of the liver foLIC acid Yes 1mg Take 1 mg [facility] 1 mg tablet 9-15 by mouth ity of 15:53: in the [place] 40 morning. Medical Branch vitamin B Yes Take by Unive rs complex (B 9-15 mouth ity of COMPLEX 15:53: daily. [place] VITAMINS Medical ORAL) Branch Miscellaneo Yes Dose for Un valente us Medical 915 Your Liver ity of Supply Liqd 15:53: Supplement [place] [address] Medical Branch OMEPRAZOLE Yes 20mg Take 20 mg U nivers ORAL 9-15 by mouth ity of 15:53: daily. [address] Branch rifaximin Yes 550mg Take 550 [facility] vers (XIFAXAN 9-15 mg by ity of ORAL) 15:53: mouth 2 [place] [address] (two) Medical times Branch daily. losartan 0 Yes 100mg Take 100 Univ ers potassium 9-15 mg by ity of (LOSARTAN 15:53: mouth [place] ORAL) 40 daily. Medical Branch spironolact 0 Yes 25mg Take 25 mg [facility] one 25 mg 9-15 by mouth ity of tablet 15:53: daily. [place] [address] Medical Branch escitalopra 0 Yes 20mg Take 20 mg [facility] m oxalate 9-15 by mouth ity of 10 mg 15:53: in the [place] tablet 40 morning. Medical Branch carvediloL 0 Yes 6.25mg Take 6.25 [facility] 6.25 mg 9-15 mg by ity of tablet 15:53: mouth 2 [place] [address] (two) Medical times Branch daily with meals. lactulose 2021-0 Yes 193 15mL Take 15 mL [facility] 10 gram/15 9-15 by mouth 3 ity of mL (15 mL) 15:53: (three) [place] 40 times Medical daily. Branch Take three times per day Indication s: hardening of the liver foLIC acid 0 Yes 1mg Take 1 mg [facility] 1 mg tablet 9-15 by mouth ity of 15:53: in the [place] 40 morning. Medical Branch vitamin B Yes Take by Unive rs complex (B 9-15 mouth ity of COMPLEX 15:53: daily. [place] VITAMINS 40 Medical ORAL) Branch Miscellaneo Yes Dose for Un valente us Medical 9-15 Your Liver ity of Supply Liqd 15:53: Supplement [place] [address] Medical Branch OMEPRAZOLE 0 Yes 20mg Take 20 mg U nivers ORAL 9-15 by mouth ity of 15:53: daily. [address] Branch rifaximin 0 Yes 550mg Take 550 Uni vers (XIFAXAN 9-15 mg by ity of ORAL) 15:53: mouth 2 [place] [address] (two) Medical times [place] daily. losartan 0 Yes 100mg Take 100 Univ ers potassium 9-15 mg by ity of (LOSARTAN 15:53: mouth [place] ORAL) 40 daily. Medical Branch spironolact 0 Yes 25mg Take 25 mg [facility] one 25 mg 9-15 by mouth ity of tablet 15:53: daily. [address] Branch escitalopra 0 Yes 20mg Take 20 mg [facility] m oxalate 9-15 by mouth ity of 10 mg 15:53: in the [place] tablet 40 morning. Medical Branch carvediloL 0 Yes 6.25mg Take 6.25 [facility] 6.25 mg 9-15 mg by ity of tablet 15:53: mouth 2 [place] [address] (two) Medical times Branch daily with meals. lactulose 0 Yes 1935 15mL Take 15 mL [facility] 10 gram/15 9-15 by mouth 3 ity of mL (15 mL) 15:53: (three) [place] 40 times Medical daily. Branch Take three times per day Indication s: hardening of the liver foLIC acid Yes 1mg Take 1 mg [facility] 1 mg tablet 9-15 by mouth ity of 15:53: in the [place] [address] morning. Medical Branch vitamin B Yes Take by Unive rs complex (B 9-15 mouth ity of COMPLEX 15:53: daily. [place] VITAMINS 40 Medical ORAL) Branch Miscellaneo Yes Dose for Un valente us Medical 9-15 Your Liver ity of Supply Liqd 15:53: Supplement [place] [address] Medical Branch furosemide Yes [id number] 40mg Take 1 [facility] 40 mg 9-15 tablet by ity of tablet 00:00: mouth in [place] 00 the Medical morning. Branch aspirin 81 Yes [id number] 81mg Take 1 [facility] mg chewable 9-15 tablet by ity of tablet 00:00: mouth in [place] 00 the Medical morning. Branch amLODIPine Yes [id number] 10mg Take 1 [facility] 10 mg 9-15 tablet by ity of tablet 00:00: mouth in [place] 00 the Medical morning. Branch levothyroxi Yes [id number] 25ug Take 1 [facility] ne 25 mcg 9-15 tablet by ity o f tablet 00:00: mouth [place] 00 every Medical morning. Branch albuterol Yes [id number] 2{puff} Inhale 2 [facility] 90 9-15 Puffs ity of mcg/actuati 00:00: every 6 [place] on inhaler 00 (six) Medical hours as Branch needed for Wheezing or Shortness of Breath. doxycycline 0 Yes [id number] 100mg Take 1 [facility] hyclate 100 9-15 capsule by it y of mg capsule 00:00: mouth [place] 00 every 12 Medical (twelve) Branch hours. furosemide 0 Yes [id number] 40mg Take 1 [facility] 40 mg 9-15 tablet by ity of tablet 00:00: mouth in [place] 00 the Medical morning. Branch aspirin 81 0 Yes [id number] 81mg Take 1 [facility] mg chewable 9-15 tablet by ity of tablet 00:00: mouth in [place] 00 the Medical morning. Branch amLODIPine Yes [id number] 10mg Take 1 [facility] 10 mg 9-15 tablet by ity of tablet 00:00: mouth in [place] 00 the Medical morning. Branch levothyroxi 2021-0 Yes [id number] 25ug Take 1 [facility] ne 25 mcg 9-15 tablet by ity o f tablet 00:00: mouth [place] 00 every Medical morning. Branch albuterol 2021-0 Yes [id number] 2{puff} Inhale 2 [facility] 90 9-15 Puffs ity of mcg/actuati 00:00: every 6 [place] on inhaler 00 (six) Medical hours as Branch needed for Wheezing or Shortness of Breath. doxycycline 2021-0 Yes [id number] 100mg Take 1 [facility] hyclate 100 9-15 capsule by it y of mg capsule 00:00: mouth [place] 00 every 12 Medical (twelve) Branch hours. furosemide 2021-0 Yes [id number] 40mg Take 1 [facility] 40 mg 9-15 tablet by ity of tablet 00:00: mouth in [place] 00 the Medical morning. Branch aspirin 81 2021-0 Yes [id number] 81mg Take 1 [facility] mg chewable 9-15 tablet by ity of tablet 00:00: mouth in [place] 00 the Medical morning. Branch amLODIPine 2021-0 Yes [id number] 10mg Take 1 [facility] 10 mg 9-15 tablet by ity of tablet 00:00: mouth in [place] 00 the Medical morning. Branch levothyroxi 2021-0 Yes [id number] 25ug Take 1 [facility] ne 25 mcg 9-15 tablet by ity o f tablet 00:00: mouth [place] 00 every Medical morning. Branch albuterol 2021-0 Yes [id number] 2{puff} Inhale 2 [facility] 90 9-15 Puffs ity of mcg/actuati 00:00: every 6 [place] on inhaler 00 (six) Medical hours as Branch needed for Wheezing or Shortness of Breath. doxycycline 2021-0 Yes [id number] 100mg Take 1 [facility] hyclate 100 9-15 capsule by it y of mg capsule 00:00: mouth [place] 00 every 12 Medical (twelve) Branch hours. furosemide 2021-0 Yes [id number] 40mg Take 1 [facility] 40 mg 9-15 tablet by ity of tablet 00:00: mouth in [place] 00 the Medical morning. Branch aspirin 81 2021-0 Yes [id number] 81mg Take 1 [facility] mg chewable 9-15 tablet by ity of tablet 00:00: mouth in [place] 00 the Medical morning. Branch amLODIPine 2021-0 Yes [id number] 10mg Take 1 [facility] 10 mg 9-15 tablet by ity of tablet 00:00: mouth in [place] 00 the Medical morning. Branch levothyroxi 2021-0 Yes [id number] 25ug Take 1 [facility] ne 25 mcg 9-15 tablet by ity o f tablet 00:00: mouth [place] 00 every Medical morning. Branch albuterol 2021-0 Yes [id number] 2{puff} Inhale 2 [facility] 90 9-15 Puffs ity of mcg/actuati 00:00: every 6 [place] on inhaler 00 (six) Medical hours as Branch needed for Wheezing or Shortness of Breath. doxycycline 2021-0 Yes [id number] 100mg Take 1 [facility] hyclate 100 9-15 capsule by it y of mg capsule 00:00: mouth [place] 00 every 12 Medical (twelve) Branch hours. furosemide 2021-0 Yes [id number] 40mg Take 1 [facility] 40 mg 9-15 tablet by ity of tablet 00:00: mouth in [place] 00 the Medical morning. Branch aspirin 81 2021-0 Yes [id number] 81mg Take 1 [facility] mg chewable 9-15 tablet by ity of tablet 00:00: mouth in [place] 00 the Medical morning. Branch amLODIPine 2021-0 Yes [id number] 10mg Take 1 [facility] 10 mg 9-15 tablet by ity of tablet 00:00: mouth in [place] 00 the Medical morning. Branch levothyroxi 2021-0 Yes [id number] 25ug Take 1 [facility] ne 25 mcg 9-15 tablet by ity o f tablet 00:00: mouth [place] 00 every Medical morning. Branch albuterol 2021-0 Yes [id number] 2{puff} Inhale 2 [facility] 90 9-15 Puffs ity of mcg/actuati 00:00: every 6 [place] on inhaler 00 (six) Medical hours as Branch needed for Wheezing or Shortness of Breath. doxycycline 2021-0 Yes [id number] 100mg Take 1 [facility] hyclate 100 9-15 capsule by it y of mg capsule 00:00: mouth [place] 00 every 12 Medical (twelve) Branch hours. amLODIPine 2021-0 Yes [id number] 10mg Take 1 [facility] 10 mg 9-15 tablet by ity of tablet 00:00: mouth in [place] 00 the Medical morning. Branch levothyroxi Yes [id number] 25ug Take 1 [facility] ne 25 mcg 9-15 tablet by ity o f tablet 00:00: mouth [place] 00 every Medical morning. Branch amLODIPine Yes [id number] 10mg Take 1 [facility] 10 mg 9-15 tablet by ity of tablet 00:00: mouth in [place] 00 the Medical morning. Branch levothyroxi Yes [id number] 25ug Take 1 [facility] ne 25 mcg 9-15 tablet by ity o f tablet 00:00: mouth [place] 00 every Medical morning. Branch aspirin 81 Yes 81mg QD Chew 1 Metho di mg chewable 9-15 tablet (81 st tablet 00:00: mg total) Hospit a 00 every l morning. levothyroxi Yes 25ug QD Take 1 Meth ina ne 9-15 tablet (25 st (SYNTHROID) 00:00: mcg total) [facility]osp[facility] 25 mcg 00 by mouth l tablet every morning. furosemide 2022- No [id number] 40mg Take 1 [facility] 40 mg 04-10 tablet by ity of tablet 00:00: 00:00 mouth in [place] 00 :00 the Medical morning. Branch aspirin 81 2022- No [id number] 81mg Take 1 [facility] mg chewable 04-10 tablet by it y of tablet 00:00: 00:00 mouth in [place] 00 :00 the Medical morning. Branch albuterol 2022- No [id number] 2{puff} Inhale 2 [facility] 90 04-10 Puffs ity of mcg/actuati 00:00: 00:00 every 6 [place] on inhaler 00 :00 (six) Medical hours as Branch needed for Wheezing or Shortness of Breath. doxycycline 2022- No [id number] 100mg Take 1 [facility] hyclate 100 04-10 capsule by i ty of mg capsule 00:00: 00:00 mouth [place] 00 :00 every 12 Medical (twelve) Branch hours. albuterol Yes 2.5mg 2.5 mg, Univ ers (PROVENTIL) 04-09 Inhalation it y of 2.5 mg /3 21:00: , QID, [place] mL (0.083 00 First dose Medi loki %) on Thu nebulizer 04/09/22 at solution 1600, 2.5 mg Until Discontinu ed, Routine ipratropium Yes .5mg 0.5 mg, Uni vers (ATROVENT) 04-09 Inhalation ity of 0.02 % 21:00: , QID, [place] nebulizer 00 First dose Medi loki solution on Thu 0.5 mg 04/09/22 at 1600, Until Discontinu ed, Routine predniSONE Yes 40mg 40 mg, Unive rs (DELTASONE) 04-09 Oral, ity of tablet 40 21:00: DAILY, [place] mg 00 First dose Medical on Thu04/09/22 at 1600, Until Discontinu ed, Routine doxycycline 2021- No 100mg 100 mg, U nivers hyclate 04-09 Oral, ity of (Vibramycin 21:00: 10:59 Q12HA2, 14 [place] ) capsule 00 :00 doses, Medical 100 mg First dose Branch on Thu04/09/22 at 1600, Last dose on Thu04/15/22 at 1800, ELIZABETH
Re ason for Anti-Infec tive: Documented Infection< br>Documen mike Infection Site: Respirator y
Durat ion of Therapy: 7 days furosemide 2021- 202- No 40mg 40 mg, Univ ers (LASIX) 04-09- Slow IV ity of injection 16:45: 17:09 Push, [place] 40 mg 00 :00 ONCE, 1 Medical dose, On Branch Thu04/09/22 at 1145, Routine amLODIPine Yes 10mg 10 mg, Unive rs (NORVASC) 04-09 Oral, ity of tablet 10 14:00: DAILY, [place] mg 00 First dose Medical (after Branch last modificati on) on Thu04/09/22 at 0900, Until Discontinu ed, Routine amLODIPine 2021- No 5mg 5 mg, Unive rs (NORVASC) 04-08- Oral, ity of tablet 5 mg 16:15: 15:52 ONCE, 1 [place] 00 :00 dose, On Medical Thu04/08/22 at 1115, Routine amLODIPine 0 2021- No 5mg 5 mg, Unive rs (NORVASC) 04-07 09-13 Oral, ity of tablet 5 mg 22:45: 15:16 DAILY, [place] 00 :51 First dose Medical on [facility] Branch 04/07/22 at 1745, Until Discontinu ed, Routine hydralAZINE 0 Yes 10mg 10 mg, Univ ers (APRESOLINE 04-07 Slow IV ity o f ) injection 22:39: Push, [place] 10 mg 36 Q4HPRN, Medical Starting Branch on [facility] 04/07/22 at 1739, Until Discontinu ed, STAT, DBP=>100; SBP=>180 furosemide 2021-0 Yes 40mg 40 mg, Unive rs (LASIX) 04-07 Oral, ity of tablet 40 14:00: DAILY, [place] mg 00 First dose Medical on [facility] Branch 04/07/22 at 0900, Until Discontinu ed, Routine codeine-gua 0 Yes 10mL 10 mL, Univ ers ifenesin 04-07 Oral, ity of (ROBITUSSIN 13:22: Q6HPRN, [place] AC) 10-100 51 Starting Medic al mg/5 mL on [facility] Branch oral 04/07/22 at solution 10 0822, mL Until Discontinu ed, Routine, Cough levothyroxi Yes 25ug 25 mcg, Uni vers ne 04-06 Oral, ity of (SYNTHROID) 11:00: QAM-0600, [place] tablet 25 00 First dose Medi loki mcg (after Branch last reorder) on [place] 04/06/22 at 0600, Until Discontinu ed, Routine aspirin 0 Yes 81mg 81 mg, Univers chewable 04-05 Oral, ity of tablet 81 14:45: DAILY, [place] mg 00 First dose Medical on [facility] Branch 04/05/22 at 0945, Until Discontinu ed, Routine foLIC acid 0 Yes 1mg 1 mg, Univer s (FOLATE) -10 Oral, ity of tablet 1 mg 14:00: DAILY, [place] 00 First dose Medical on [facility] Branch 04/05/22 at 0900, Until Discontinu ed, Routine levothyroxi 2021- No 25ug 25 mcg, Un valente ne 04-05 Oral, ity of (SYNTHROID) 11:00: 12:20 QAM-0600, [place] tablet 25 00 :00 1 dose, Medical mcg First dose Branch on Thu04/05/22 at 0600, Routine ibuprofen 2021-0 Yes 600mg 600 mg, Univ ers (IBU) 04-05 Oral, ity of tablet 600 01:47: Q8HPRN, [place] mg 07 Starting Medical on Thu Branch 04/04/22 at 2047, Until Discontinu ed, Routine, Temp > 38.5 C, Pain (scale 1-3) lactulose 2021-0 Yes 193 15mL 15 mL, Univer s (CEPHULAC) 04-04 Oral, TID, ity of solution 15 21:30: First dose [place] mL 00 on Thu Medical 04/04/22 at Branch 1630, Until Discontinu ed spironolact 2021-0 Yes 25mg 25 mg, Univ ers one 04-04 Oral, ity of (ALDACTONE) 14:00: DAILY, [place] tablet 25 00 First dose Medi loki mg on Thu Branch 04/04/22 at 0900, Until Discontinu ed, Routine omeprazole 2021-0 Yes 20mg 20 mg, Unive rs (PRILOSEC) 04-04 Oral, ity of capsule 20 14:00: DAILY, [place] mg 00 First dose Medical on Thu Branch 04/04/22 at 0900, Until Discontinu ed losartan 2021-0 Yes 100mg 100 mg, Unive rs (COZAAR) 04-04 Oral, ity of tablet 100 14:00: DAILY, [place] mg 00 First dose Medical on Fri Branch 04/04/22 at 0900, Until Discontinu ed escitalopra 2021-0 Yes 10mg 10 mg, Univ ers m oxalate 04-04 Oral, ity of (LEXAPRO) 14:00: DAILY, [place] tablet 10 00 First dose Medi loki mg on Thu Branch 04/04/22 at 0900, Until Discontinu ed, Routine furosemide 2021-0 202- No 20mg 20 mg, IV U nivers (LASIX) 04-0410 Push, ity of injection 14:00: 13:11 QAM+PM, [place] 20 mg 00 :00 First dose Medical (after Branch last reorder) on Thu04/04/22 at 0900, Until Discontinu ed, STAT enoxaparin 2021- No 70mg 70 mg, Univ ers (LOVENOX) 04-04 Subcutaneo ity of injection 13:30: 15:58 us, Q12H, [place] 70 mg 00 :54 First dose Medical on Thu Branch 04/04/22 at 0830, Until Discontinu ed, Routine magnesium 2021- No 2g 2 g, IV Univ ers sulfate in 04-04 Piggyback, it y of water 2 13:30: 15:45 Administer [place] gram/50 mL 00 :00 over 60 Medica l (4 %) Minutes, Branch infusion 2 ONCE, 1 g dose, On Thu04/04/22 at 0830, Routine rifAXIMin 2021- No 550mg 550 mg, Uni vers (XIFAXAN) 04-04 Oral, BID, ity of tablet 550 13:00: 01:47 4 doses, [place] mg 00 :00 First dose Medical on Fri Branch 04/04/22 at 0800, Last dose on 04/05/22 at 2000<br&gt ;Reason for Anti-Infec tive: Empiric Non-Surgic al Prophylaxi s
Durat ion of therapy: 72 hours magnesium 2021- No 2g 2 g, IV Univ ers sulfate in 04-04 Piggyback, it y of water 2 12:30: 14:50 Administer [place] gram/50 mL 00 :00 over 60 Medica l (4 %) Minutes, Branch infusion 2 ONCE, 1 g dose, On Thu04/04/22 at 0730, Routine pantoprazol 2021- No 40mg 40 mg, Uni vers e 04-04 Slow IV ity of (PROTONIX) 01:45: 03:47 Push, [place] injection 00 :42 Q24H, Medical 40 mg First dose Branch on [place] 04/03/22 at 2045, Until Discontinu ed aspirin 2021- No 325mg 325 mg, Unive rs tablet 325 04-04 Oral, ity of mg 01:30: 01:44 ONCE, 1 [place] 00 :00 dose, On Medical [place] 04/03/22 Branch at 2030, Routine furosemide 2021- No 40mg 40 mg, IV U nivers (LASIX) 04-03 Push, ity of injection 23:30: 23:56 ONCE, 1 [place] 40 mg 00 :00 dose, On Medical [place] 04/03/22 Branch at 1830, STAT folic acid Yes 1mg Take 1 Metho di (FOLVITE) 1 6-28 tablet (1 st MG tablet 00:00: mg total) Hos bill 00 by mouth. l lactulose 0 Yes 15mL Take 15 mL Me thodi (CHRONULAC) 6-[address] 10 gram/15 00:00: Hospita mL solution 00 l spironolact 0 Yes 25mg QD Take 1 Meth ina one 6-28 tablet (25 st (ALDACTONE) 00:00: mg total) H [facility]spita 25 MG 00 by mouth l tablet daily. foLIC acid 2021- No [id number] 1mg Take 1 [facility] 1 mg tablet 10-22- tablet by it y of 00:00: 04:59 mouth [place] 00 :00 daily for Medical 30 days. Branch thiamine 2021-2021- No [id number] 100mg Take 1 U nivers 100 mg 10-22 tablet by ity of tablet 00:00: 04:59 mouth [place] 00 :00 daily for Medical 30 days. Branch foLIC acid 2021- No [id number] 1mg Take 1 Univers 1 mg tablet 10-22- tablet by it y of 00:00: 04:59 mouth [place] 00 :00 daily for Medical 30 days. Branch thiamine 2021-0 2021- No [id number] 100mg Take 1 U nivers 100 mg -22 11- tablet by ity of tablet 00:00: 04:59 mouth [place] 00 :00 daily for Medical 30 days. Branch foLIC acid 0 2021- No [id number] 1mg Take 1 Univers 1 mg tablet 10-22- tablet by it y of 00:00: 04:59 mouth [place] 00 :00 daily for Medical 30 days. Branch thiamine 2021-0 2- No [id number] 100mg Take 1 U nivers 100 mg 3-29 04-29 tablet by ity of tablet 00:00: 04:59 mouth [place] 00 :00 daily for Medical 30 days. Branch OMEPRAZOLE 2021-0 Yes 20mg Take 20 mg U nivers ORAL 3-28 by mouth ity of 19:05: daily. [place] [address] Medical Branch rifaximin 2021-0 Yes 550mg Take 550 Uni vers (XIFAXAN 3-28 mg by ity of ORAL) 19:05: mouth 2 [place] 20 (two) Medical times Branch daily. losartan 2021-0 Yes 100mg Take 100 Univ ers potassium 3-28 mg by ity of (LOSARTAN 19:05: mouth [place] ORAL) 20 daily. Medical Branch spironolact 2021-0 Yes 25mg Take 25 mg Univers one 25 mg 3-28 by mouth ity of tablet 19:05: daily. [place] [address] Medical Branch escitalopra 2021-0 Yes 10mg Take 10 mg Univers m oxalate 3-28 by mouth ity of 10 mg 19:05: daily. [facility] 20 Medical Branch carvediloL 2021-0 Yes 6.25mg Take 6.25 Univers 6.25 mg 3-28 mg by ity of tablet 19:05: mouth 2 [place] [address] (two) Medical times [place] daily with meals. OMEPRAZOLE 2021-0 Yes 20mg Take 20 mg U nivers ORAL 3-28 by mouth ity of 19:05: daily. [place] [address] Medical Branch rifaximin 2021-0 Yes 550mg Take 550 Uni vers (XIFAXAN 3-28 mg by ity of ORAL) 19:05: mouth 2 [place] 20 (two) Medical times [place] daily. losartan 2021-0 Yes 100mg Take 100 Univ ers potassium 3-28 mg by ity of (LOSARTAN 19:05: mouth [place] ORAL) 20 daily. Medical Branch spironolact 2021-0 Yes 25mg Take 25 mg Univers one 25 mg 3-28 by mouth ity of tablet 19:05: daily. [place] [address] Medical Branch escitalopra 2021-0 Yes 10mg Take 10 mg Univers m oxalate 3-28 by mouth ity of 10 mg 19:05: daily. [facility] 20 Medical Branch carvediloL 2021-0 Yes 6.25mg Take 6.25 Univers 6.25 mg 3-28 mg by ity of tablet 19:05: mouth 2 [place] 20 (two) Medical times Branch daily with meals. OMEPRAZOLE 2021-0 Yes 20mg Take 20 mg U nivers ORAL -28 by mouth ity of 19:05: daily. [place] 20 Medical Branch rifaximin 2021-0 Yes 550mg Take 550 Uni vers (XIFAXAN 3-28 mg by ity of ORAL) 19:05: mouth 2 [place] 20 (two) Medical times Branch daily. losartan 2021-0 Yes 100mg Take 100 Univ ers potassium 3-28 mg by ity of (LOSARTAN 19:05: mouth [place] ORAL) 20 daily. Medical Branch spironolact 0 Yes 25mg Take 25 mg Univers one 25 mg - by mouth ity of tablet 19:05: daily. [place] 20 Medical Branch escitalopra 0 Yes 10mg Take 10 mg Univers m oxalate 10-21 by mouth ity of 10 mg 19:05: daily. [facility] 20 Medical Branch carvediloL 0 Yes 6.25mg Take 6.25 Univers 6.25 mg 3-28 mg by ity of tablet 19:05: mouth 2 [place] 20 (two) Medical times [place] daily with meals. LACTULOSE 2021-0 2021- No Take by Univ ers ORAL 10-21-28 mouth. ity of 14:18: 00:00 [place] 04 :00 Medical Branch lactulose 2021-0 2021- No [id number] 30mL Take 30 mL Univers 10 gram/15 10-21 by mouth 3 it y of mL solution 00:00: 04:59 (three) [place] 00 :00 times Medical daily for Branch 30 days. KCL 20 mEq 2021-0 2021- No [id number] 20meq Take 1 [facility] tablet 10-21 tablet by ity of 00:00: 04:59 mouth [place] 00 :00 daily for Medical 30 days. Branch lactulose 2021-0 2021- No [id number] 30mL Take 30 mL Univers 10 gram/15 10-21 by mouth 3 it y of mL solution 00:00: 04:59 [place]three[place] times Medical daily for Branch 30 days. KCL 20 mEq 2021-0 2021- No [id number] 20meq Take 1 Univers tablet 10-21 tablet by ity of 00:00: 04:59 mouth [place] 00 :00 daily for Medical 30 days. Branch lactulose 2021- No [id number] 30mL Take 30 mL Univers 10 gram/15 10-21 by mouth 3 it y of mL solution 00:00: 04:59 [place]three[place] times Medical daily for Branch 30 days. KCL 20 mEq 2021- No [id number] 20meq Take 1 Univers tablet 10-21 tablet by ity of 00:00: 04:59 mouth [place] 00 :00 daily for Medical 30 days. Branch lactulose Yes 45mL 45 mL, Univer s (CEPHULAC) 327 Oral, TID, ity of solution 45 19:00: First dose [place] mL 00 (after Medical last Branch modificati on) on [place] 10/20/21 at 1400, Until Discontinu ed, ELIZABETH rifAXIMin Yes 550mg 550 mg, Univ ers (XIFAXAN) 10-20 Oral, BID, ity of tablet 550 14:00: First dose [place] mg 00 on [facility] 10/20/21 at Branch 0900, Until Discontinu ed, Routine
Reason for Anti-Infec tive: Empiric Therapy for Suspected Infection< br>Empiric Therapy Site: Abdominal< br>Duratio n of therapy: 72 hours lactulose 2021- No 30mL 30 mL, Unive rs (CEPHULAC) 10-19 0327 Oral, TID, it y of solution 30 19:00: 13:52 First dose [place] mL 00 :28 (after Medical last Branch modificati on) on [facility] 10/19/21 at 1400, Until Discontinu ed, ELIZABETH thiamine 2021-0 Yes 100mg 100 mg, Unive rs (VITAMIN 3- Oral, ity of B1) tablet 14:00: DAILY, [place] 100 mg 00 First dose Medical on [facility] 10/19/21 at 0900, Until Discontinu ed, Routine foLIC acid 2021-0 Yes 1mg 1 mg, Univer s (FOLATE) - Oral, ity of tablet 1 mg 14:00: [place]ILY, [place] 00 First dose Medical on [facility] 10/19/21 at 0900, Until Discontinu ed, Routine escitalopra Yes 10mg 10 mg, Univ ers m oxalate 10-19 Oral, ity of (LEXAPRO) 14:00: DAILY, [place] tablet 10 00 First dose Medi loki mg on [facility] Branch 10/19/21 at 0900, Until Discontinu ed, Routine spironolact Yes 25mg 25 mg, Univ ers one 10-19 Oral, ity of (ALDACTONE) 14:00: DAILY, [place] tablet 25 00 First dose Medi loki mg on [facility] Branch 10/19/21 at 0900, Until Discontinu ed, Routine omeprazole Yes 20mg 20 mg, Unive rs (PRILOSEC) 10-19 Oral, ity of capsule 20 14:00: DAILY, [place] mg 00 First dose Medical on [facility] Branch 10/19/21 at 0900, Until Discontinu ed KCL Yes 40meq 40 mEq, Univers (KLOR-CON 10-19 Oral, BID, ity of M20) tablet 13:15: First dose [place] 40 mEq 00 on [facility] Medical 10/19/21 at Branch 0815, Until Discontinu ed, Routine carvediloL Yes 6.25mg 6.25 mg, U nivers (COREG) 10-19 Oral, BID ity of tablet 6.25 13:00: MEALS, [place] mg 00 First dose Medical on [facility] Branch 10/19/21 at 0800, Until Discontinu ed, Routine magnesium 2021- No 400mg 400 mg, Uni vers oxide 10-19 Oral, BID, ity of (MAG-OX 13:00: 13:21 3 doses, [place] 400) tablet 00 :00 First dose Me dical 400 mg on [facility] Branch 10/19/21 at 0800, Last dose on 10/20/21 at 0800, Routine magnesium 2021- No 2g 2 g, IV Univ ers sulfate in 10-19 Piggyback, it y of water 2 00:30: 03:40 Administer Vince as gram/50 mL 00 :00 over 60 Medica l (4 %) Minutes, Branch infusion 2 ONCE NOW, g 1 dose, On Thu10/18/21 at 1930, Routine phosphorus 2021-0 2021- No 500mg 2 tablet U nivers (K PHOS 10-18 (500 mg), ity of NEUTRAL) 23:30: 13:48 Oral, TID, [place] tablet 2 00 :34 First dose Medic al tablet on Thu Branch 10/18/21 at 1830, Until Discontinu ed, Routine acetaminoph Yes 500mg 500 mg, Un valente en 10-18 Oral, ity of (TYLENOL) 23:25: Q6HPRN, [place] tablet 500 25 Starting Medic al mg on Thu Branch 10/18/21 at 1825, Until Discontinu ed, Routine, Pain (scale 1-3) KCL 2021- No 20meq 20 mEq, IV Unive rs (POTASSIUM 10-18 Piggyback, it y of CHLORIDE) 23:00: 02:40 Q1H, 3 [place] 20 mEq in 00 :00 doses, Medical NaCl 0.9% First dose Bran ch (NS) 100 mL on Thu piggyback 10/18/21 at 1800, Last dose on Thu10/18/21 at 2000, 100 mL KCL 2021- No 40meq 40 mEq, Univers (KLOR-CON 10-18 Oral, ity of M20) tablet 23:00: 22:37 ONCE, 1 [place] 40 mEq 00 :00 dose, On Medical Thu Branch 10/18/21 at 1800, ELIZABETH lactulose 2021- No 30mL 30 mL, Unive rs (CEPHULAC) 10-18 Oral, Q4H, it y of solution 30 22:30: 13:10 First dose [place] mL 00 :55 (after Medical [facility] Branch modificati on) on Thu10/18/21 at 1730, Until Discontinu ed, ELIZABETH losartan Yes 100mg Take 100 Univ ers potassium 9-26 mg by ity of (LOSARTAN 15:08: mouth [place] ORAL) 31 daily. [facility] Branch spironolact Yes 25mg Take 25 mg Univers one 25 mg -26 by mouth ity of tablet 15:08: daily. [address] LACTULOSE Yes Take by Unive rs ORAL 04-21 mouth. ity of 15:08: [address] Branch OMEPRAZOLE Yes 20mg Take 20 mg U nivers ORAL 9-26 by mouth ity of 15:08: daily. [address] Branch rifaximin 2020-0 Yes 550mg Take 550 Uni vers (XIFAXAN 9-26 mg by ity of ORAL) 15:08: mouth [address] [place] [address] ([facility]) Medical times [place] daily. losartan 2021-0 Yes 100mg Take 100 Univ ers potassium 9-26 mg by ity of (LOSARTAN 15:08: mouth [place] ORAL) 31 daily. Medical Branch spironolact 2020-0 Yes 25mg Take 25 mg Univers one 25 mg 9-26 by mouth ity of tablet 15:08: daily. [address] Branch LACTULOSE 2020-0 Yes Take by Unive rs ORAL 9-26 mouth. ity of 15:08: [address] Branch OMEPRAZOLE 2020-0 Yes 20mg Take 20 mg U nivers ORAL 9-26 by mouth ity of 15:08: daily. [address] Branch rifaximin 2020-0 Yes 550mg Take 550 Uni vers (XIFAXAN 9-26 mg by ity of ORAL) 15:08: mouth 2 [place] [address] ([facility]) Medical times [place] daily. losartan 2020-0 Yes 100mg Take 100 Univ ers potassium 9-26 mg by ity of (LOSARTAN 15:08: mouth [place] ORAL) 31 daily. Medical Branch spironolact 2020-0 Yes 25mg Take 25 mg Univers one 25 mg 9-26 by mouth ity of tablet 15:08: daily. [address] LACTULOSE 2020-0 Yes Take by Unive rs ORAL 9-26 mouth. ity of 15:08: [address] Branch OMEPRAZOLE 2020-0 Yes 20mg Take 20 mg U nivers ORAL 9-26 by mouth ity of 15:08: daily. [address] Branch rifaximin 2020-0 Yes 550mg Take 550 Uni vers (XIFAXAN 9-26 mg by ity of ORAL) 15:08: mouth 2 [place] [address] ([facility]) Medical times [place] daily. losartan 2021-0 Yes 100mg Take 100 Univ ers potassium 9-26 mg by ity of (LOSARTAN 15:08: mouth [place] ORAL) 31 daily. Medical Branch spironolact 2020-0 Yes 25mg Take 25 mg Univers one 25 mg 9-26 by mouth ity of tablet 15:08: daily. [address] LACTULOSE 2020-0 Yes Take by Unive rs ORAL 9-26 mouth. ity of 15:08: [address] Branch OMEPRAZOLE 2020-0 Yes 20mg Take 20 mg U nivers ORAL 9-26 by mouth ity of 15:08: daily. [address] Branch rifaximin 2020-0 Yes 550mg Take 550 Uni vers (XIFAXAN 9-26 mg by ity of ORAL) 15:08: mouth [address] [place] [address] (two) Medical times [place] daily. losartan 2020-0 Yes 100mg Take 100 Univ ers potassium 9-26 mg by ity of (LOSARTAN 15:08: mouth [place] ORAL) 31 daily. Medical Branch spironolact 2020-0 Yes 25mg Take 25 mg Univers one 25 mg 9-26 by mouth ity of tablet 15:08: daily. [address] LACTULOSE 0 Yes Take by Unive rs ORAL 9-26 mouth. ity of 15:08: [address] OMEPRAZOLE 2020-0 Yes 20mg Take 20 mg U nivers ORAL 9-26 by mouth ity of 15:08: daily. [address] Branch rifaximin 2020-0 Yes 550mg Take 550 Uni vers (XIFAXAN 9-26 mg by ity of ORAL) 15:08: mouth [address] [place] [address] (two) Medical times [place] daily. losartan 2020-0 Yes 100mg Take 100 Univ ers potassium 9-26 mg by ity of (LOSARTAN 15:08: mouth [place] ORAL) 31 daily. Medical Branch spironolact 2020-0 Yes 25mg Take 25 mg Univers one 25 mg 9-26 by mouth ity of tablet 15:08: daily. [address] Branch LACTULOSE 2020-0 Yes Take by Unive rs ORAL 9-26 mouth. ity of 15:08: [address] Branch OMEPRAZOLE 2020-0 Yes 20mg Take 20 mg U nivers ORAL 9-26 by mouth ity of 15:08: daily. [address] Branch rifaximin 2020-0 Yes 550mg Take 550 Uni vers (XIFAXAN 9-26 mg by ity of ORAL) 15:08: mouth [address] [place] [address] (two) Medical times [place] daily. losartan 2021-0 Yes 100mg Take 100 Univ ers potassium 9-26 mg by ity of (LOSARTAN 15:08: mouth [place] ORAL) 31 daily. Medical Branch spironolact 2020-0 Yes 25mg Take 25 mg Univers one 25 mg 9-26 by mouth ity of tablet 15:08: daily. [place] [address] Medical Branch LACTULOSE 2020-0 Yes Take by Unive rs ORAL 9-26 mouth. ity of 15:08: [address] Branch OMEPRAZOLE 2020-0 Yes 20mg Take 20 mg U nivers ORAL 9-26 by mouth ity of 15:08: daily. [place] [address] Medical Branch rifaximin 2020-0 Yes 550mg Take 550 Uni vers (XIFAXAN 9-26 mg by ity of ORAL) 15:08: mouth 2 [place] [address] (two) Medical times [place] daily. losartan 2020-0 Yes 100mg Take 100 Univ ers potassium 9-26 mg by ity of (LOSARTAN 15:08: mouth [place] ORAL) 31 daily. Medical Branch spironolact 0 Yes 25mg Take 25 mg Univers one 25 mg 9-26 by mouth ity of tablet 15:08: daily. [address] Branch LACTULOSE 2020-0 Yes Take by Unive rs ORAL 9-26 mouth. ity of 15:08: [address] Branch OMEPRAZOLE 2020-0 Yes 20mg Take 20 mg U nivers ORAL 9-26 by mouth ity of 15:08: daily. [address] Branch rifaximin 2020-0 Yes 550mg Take 550 Uni vers (XIFAXAN 9-26 mg by ity of ORAL) 15:08: mouth [address] [place] [address] (two) Medical times [place] daily. losartan 2020-0 Yes 100mg Take 100 Univ ers potassium 9-26 mg by ity of (LOSARTAN 15:08: mouth [place] ORAL) 31 daily. Medical Branch spironolact 2020-0 Yes 25mg Take 25 mg Univers one 25 mg 9-26 by mouth ity of tablet 15:08: daily. [address] Branch LACTULOSE 2020-0 Yes Take by Unive rs ORAL 9-26 mouth. ity of 15:08: [address] Branch OMEPRAZOLE 2020-0 Yes 20mg Take 20 mg U nivers ORAL 9-26 by mouth ity of 15:08: daily. [address] Branch rifaximin 2020-0 Yes 550mg Take 550 Uni vers (XIFAXAN 9-26 mg by ity of ORAL) 15:08: mouth [address] [place] [address] (two) Medical times [place] daily. losartan Yes 100mg Take 100 Univ ers potassium 9-26 mg by ity of (LOSARTAN 15:08: mouth [place] ORAL) 31 daily. Medical Branch spironolact Yes 25mg Take 25 mg Univers one 25 mg 9-26 by mouth ity of tablet 15:08: daily. [address] LACTULOSE Yes Take by Unive rs ORAL 9- mouth. ity of 15:08: [address] OMEPRAZOLE Yes 20mg Take 20 mg U nivers ORAL 9-26 by mouth ity of 15:08: daily. [address] rifaximin Yes 550mg Take 550 Uni vers (XIFAXAN 9-26 mg by ity of ORAL) 15:08: mouth [address] [place] [address] (two) Medical times [place] daily. Immunizations Ordered Filled Immunization Date Status Comments [facility] e Immunization Name Name Pneumococcal 2022-04-10 Completed University o f Polysaccharide, 00:00:00 [place] Med ical PPSV23 (PNEUMOVAX) Branch Pneumococcal 2022-04-10 Completed University o f Polysaccharide, 00:00:00 [place] Med ical PPSV23 (PNEUMOVAX) Branch Pneumococcal 2022-04-10 Completed University o f Polysaccharide, 00:00:00 [place] Med ical PPSV23 (PNEUMOVAX) Branch Pneumococcal 2022-04-10 Completed University o f Polysaccharide, 00:00:00 [place] Med ical PPSV23 (PNEUMOVAX) Branch Pneumococcal 2022-04-10 Completed University o f Polysaccharide, 00:00:00 [place] Med ical PPSV23 (PNEUMOVAX) Branch Pneumococcal 2022-04-10 Completed University o f Polysaccharide, 00:00:00 [place] Med ical PPSV23 (PNEUMOVAX) Branch Pneumococcal 2022-04-10 Completed University o f Polysaccharide, 00:00:00 [place] Med ical PPSV23 (PNEUMOVAX) Branch Vital Signs Vital Name Observation Time Observation Value Comments Source Systolic blood 2023-01-08 20:00:00 107 mm[Hg] Univer sity of pressure [facility] Diastolic blood 2023-01-08 20:00:00 66 mm[Hg] Unive rsity of pressure [facility] Heart rate 2023-01-08 20:00:00 70 /min [facility] [place] [facility] Body temperature 2023-01-08 20:00:00 36.11 Darlene Univ ersity [facility] [place] [facility] [place] Respiratory rate 2023-01-08 20:00:00 16 /min Univ ersity [facility] [place] [facility] Oxygen saturation in 2023-01-08 20:00:00 97 /min University of Arterial blood by [place] [employer] loki Pulse oximetry Branch Body height 2023-01-08 11:45:00 162.6 cm [facility] [place] [facility] Body weight 2023-01-08 11:45:00 75.751 kg [facility] [place] [facility] BMI 2023-01-08 11:45:00 28.67 kg/m2 [facility] [place] [facility] Systolic blood 2022-12-11 20:14:00 138 mm[Hg] Univer sity of pressure [place] [facility] Diastolic blood 2022-12-11 20:14:00 75 mm[Hg] Unive rsity of pressure [place] [facility] Heart rate 2022-12-11 20:14:00 55 /min [facility] [place] [facility] Respiratory rate 2022-12-11 20:14:00 15 /min Univ ersity [facility] [place] [facility] Oxygen saturation in 2022-12-11 20:14:00 94 /min University of Arterial blood by [facility] Pulse oximetry Branch Body temperature 2022-12-11 20:04:00 36.44 Darlene Univ ersity of [place] [facility] Body height 2022-12-11 19:33:24 157.5 cm [facility]i [facility] [place] [facility] Body weight 2022-12-11 19:33:24 75.751 kg [facility] [place] [facility] BMI 2022-12-11 19:33:24 30.54 kg/m2 [facility] [place] [facility] Heart rate 2022-04-10 16:25:00 66 /min [facility] [place] [facility] Respiratory rate 2022-04-10 16:25:00 18 /min Univ ersity of [place] [facility] Oxygen saturation in 2022-04-10 16:25:00 97 /min University of Arterial blood by [facility] loki Pulse oximetry Branch Systolic blood 2022-04-10 16:23:00 122 mm[Hg] Univer sity of pressure [place] [facility] Diastolic blood 2022-04-10 16:23:00 85 mm[Hg] Unive rsity of pressure [facility] Body temperature 2022-04-10 16:23:00 36.5 Darlene Univ ersity [facility] Body weight 2022-04-10 13:21:00 68.947 kg Universi ty of [facility] BMI 2022-04-10 13:21:00 27.80 kg/m2 Universi ty [facility] Body height 2022-04-03 22:48:00 157.5 cm Universi ty [facility] Systolic blood 2021-10-21 17:05:00 156 mm[Hg] Univer sity of pressure [facility] Diastolic blood 2021-10-21 17:05:00 75 mm[Hg] Unive rsity of [facility] Heart rate 2021-10-21 17:05:00 67 /min Universi ty [facility] Body temperature 2021-10-21 17:05:00 36.78 Darlene [facility] [place] [facility] rate 2021-10-21 17:05:00 18 /min [facility] Oxygen saturation in 2021-10-21 17:05:00 93 /min University of Arterial blood by [facility] Pulse oximetry Branch Body weight 2021-10-21 09:03:00 63.458 kg Universi ty [facility] BMI 2021-10-21 09:03:00 25.59 kg/m2 Universi ty [facility] Body height 2021-10-18 23:58:00 157.5 cm [facility] Systolic blood 2022-11-13 16:14:00 139 mm[Hg] Method ist [facility] pressure Diastolic blood 2022-11-13 16:14:00 63 mm[Hg] [facility] pressure Heart rate 2022-11-13 16:14:00 54 /min [facility] Body weight 2022-11-13 16:14:00 68.04 kg [facility] Oxygen saturation in 2022-11-13 16:14:00 93 /min [facility] Arterial blood by Pulse oximetry Procedures Procedure Date / Time Performing Clinician Source Performed EXTERNAL PROVIDER RECORDS 2023-02-04 Doctor Unassigned, Uni versity of 05:01:00 [place] [facility] COVID-19 (ID NOW RAPID 2023-01-08 Austyn Dejesus [facility] ty of TESTING) 18:07:00 [facility] 2023-01-03 [facility] [place] of 09:18:00 [facility] BASIC METABOLIC PANEL (NA, K, 2023-01-03 Austyn Dejesus U niversity of CL, CO2, GLUCOSE, BUN, 09:18:00 [place] Med ical CREATININE, CA) Branch MAGNESIUM 2023-01-01 DejesusAustyn [place] of 11:39:00 [facility] BASIC METABOLIC PANEL (NA, K, 2023-01-01 Dejesus, Austyn Perkins U niversity of CL, CO2, GLUCOSE, BUN, 11:39:00 [place] Med ical CREATININE, CA) Branch MAGNESIUM 2022-12-31 DejesusuAstyn [place] of 10:38:00 [facility] BASIC METABOLIC PANEL (NA, K, 2022-12-31 Dejesus, Austyn Perkins U niversity of CL, CO2, GLUCOSE, BUN, 10:38:00 [place] Med ical CREATININE, CA) Branch CBC WITH DIFF 2022-12-31 DejesusAustyn [place] of 10:38:00 [facility] MAGNESIUM 2022-12-30 Dejesus [facility] of 11:08:00 [facility] BASIC METABOLIC PANEL (NA, K, 2022-12-30 Dejesus, Austyn Perkins U niversity of CL, CO2, GLUCOSE, BUN, 11:08:00 [place] Med ical CREATININE, CA) Branch BASIC METABOLIC PANEL (NA, K, 2022-12-29 Dejesus, Austyn Perkins U niversity of CL, CO2, GLUCOSE, BUN, 19:19:00 [place] Med ical CREATININE, CA) Branch MAGNESIUM 2022-12-29 DejesusAustyn [place] of 11:16:00 [facility] BASIC METABOLIC PANEL (NA, K, 2022-12-29 Dejesus, Austyn Perkins U niversity of CL, CO2, GLUCOSE, BUN, 11:16:00 [place] Med ical CREATININE, CA) Branch INSURANCE CORRESPONDENCE 2022-12-29 Doctor Unassigned, Univ ersity of 05:01:00 [place] [facility] MAGNESIUM 2022-12-28 [facility] of 20:29:00 [facility] HEPATIC FUNCTION PANEL 2022-12-28 [facility] of ([id number]) (ALB,T.PRO,BILI 20:29:00 [place] Me dical T,BU/BC,ALT,AST,ALK PHOS) Branch BASIC METABOLIC PANEL (NA, K, 2022-12-28 [facility] Un iversity of CL, CO2, GLUCOSE, BUN, 20:29:00 [place] Med ical CREATININE, CA) Branch CBC WITH DIFF 2022-12-28 [facility] of 11:20:00 [facility] PROTHROMBIN TIME / INR 2022-12-28 [facility] of 11:20:00 [facility] HEPATIC FUNCTION PANEL 2022-12-27 [facility] ([id number]) (ALB,T.PRO,BILI 07:57:00 [place] Me dical T,BU/BC,ALT,AST,ALK PHOS) Branch BASIC METABOLIC PANEL (NA, K, 2022-12-27 Austyn Dejesus U niversity of CL, CO2, GLUCOSE, BUN, 07:57:00 [place] Med ical CREATININE, CA) Branch BASIC METABOLIC PANEL (NA, K, 2022-12-26 Austyn Dejesus U niversity of CL, CO2, GLUCOSE, BUN, 20:59:00 [place] Med ical CREATININE, CA) Branch MAGNESIUM 2022-12-26 Austyn Dejesus [place] of 10:55:00 [facility] BASIC METABOLIC PANEL (NA, K, 2022-12-26 Virgil Walters U niversity of CL, CO2, GLUCOSE, BUN, 10:55:00 [place] Med ical CREATININE, CA) Branch XR KUB 2022-12-26 DejesusAustyn [place] of 09:10:00 [facility] BASIC METABOLIC PANEL (NA, K, 2022-12-25 Raji Holliday Un iversity of CL, CO2, GLUCOSE, BUN, 21:00:00 [place] [facility] ical CREATININE, CA) Branch XR KUB 2022-12-25 Vasu Hudson [place] of 08:45:00 Kevin [facility] MAGNESIUM 2022-12-25 Raji Holliday of 07:10:00 [facility] BASIC METABOLIC PANEL (NA, K, 2022-12-25 Gu[facility] of CL, CO2, GLUCOSE, BUN, 07:10:00 [facility] [place] [facility] ical CREATININE, CA) Branch CBC WITH DIFF 2022-12-25 [facility] of 07:10:00 [facility] BASIC METABOLIC PANEL (NA, K, 2022-12-24 Raji Holliday Un iversity of CL, CO2, GLUCOSE, BUN, 22:20:00 [facility] ical CREATININE, CA) Branch PHOSPHORUS 2022-12-24 Micheal Maya of 08:25:00 [facility] MAGNESIUM 2022-12-24 [facility] of 08:25:00 [facility] BASIC METABOLIC PANEL (NA, K, 2022-12-24 Micheal Maya niversity of CL, CO2, GLUCOSE, BUN, 08:25:00 [facility] ica CREATININE, CA) Branch CBC WITH DIFF 2022-12-24 Micheal aMya of 08:25:00 [facility] XR KUB 2022-12-24 [facility] of 03:21:00 [facility] XR ABDOMEN 1 VW 2022-12-23 Micheal Maya of 23:40:00 [facility] MAGNESIUM 2022-12-23 Justin Leong [place] of 23:03:00 [facility] BASIC METABOLIC PANEL (NA, K, 2022-12-23 Justin Leong Un iversity of CL, CO2, GLUCOSE, BUN, 23:03:00 [facility] ica CREATININE, CA) Branch CT ABDOMEN PELVIS W CONTRAST 2022-12-23 Justin Leong Uni versity of 20:30:26 [facility] AMMONIA, PLASMA 2022-12-23 Micheal Maya of 16:30:00 [facility] XR KUB 2022-12-23 [facility] of 12:07:00 [facility] PHOSPHORUS 2022-12-23 [facility] of 09:09:00 [facility] MAGNESIUM 2022-12-23 [facility] of 09:09:00 [facility] HEPATIC FUNCTION PANEL 2022-12-23 Micheal Maya [facility] ty of ([id number]) (ALB,T.PRO,BILI 09:09:00 [facility] dical T,BU/BC,ALT,AST,ALK PHOS) Branch BASIC METABOLIC PANEL (NA, K, 2022-12-23 [facility] of CL, CO2, GLUCOSE, BUN, 09:09:00 [facility] CREATININE, CA) Branch CBC WITH DIFF 2022-12-23 [facility] of 09:09:00 [facility] BASIC METABOLIC PANEL (NA, K, 2022-12-22 Micheal Maya U niversity of CL, CO2, GLUCOSE, BUN, 07:37:00 [facility] CREATININE, CA) Branch CBC WITH DIFF 2022-12-22 Micheal Maya [place] of 07:37:00 [facility] BASIC METABOLIC PANEL (NA, K, 2022-12-21 Micheal Maya U niversity of CL, CO2, GLUCOSE, BUN, 22:18:00 [facility] ica CREATININE, CA) Branch BASIC METABOLIC PANEL (NA, K, 2022-12-20 Micheal Maya U niversity of CL, CO2, GLUCOSE, BUN, 09:11:00 [facility] CREATININE, CA) Branch CBC WITH DIFF 2022-12-20 Micheal Maya [place] of 09:11:00 [facility] SODIUM 2022-12-20 [facility] of 03:24:00 [facility] POCT GLUCOSE (AUTOMATED) 2022-12-19 Neeru Britton ity of 20:07:00 [facility] DUPLEX VENOUS LEGS BILATERAL 2022-12-19 [facility] versity of - BY VASCULAR LAB 17:55:33 [facility] FL MODIFIED BARIUM SWALLOW 2022-12-19 Micheal Maya [facility] [place] [facility] ersity of 17:15:00 [facility] US DUPLEX VENOUS ARMS 2022-12-19 Smith Sterling [place] of BILATERAL - BY VASCULAR LAB 16:54:31 [facility] CLOSTRIDIUM DIFFICILE TOXIN 2022-12-19 [facility] ersity of 16:12:00 [facility] BASIC METABOLIC PANEL (NA, K, 2022-12-19 Jillian [place] of CL, CO2, GLUCOSE, BUN, 08:33:00 [facility] ica CREATININE, CA) Branch CBC WITH DIFF 2022-12-19 Jem [place] of 08:33:00 [facility] VANCOMYCIN TROUGH 2022-12-18 [facility] of 22:06:00 [facility] MRSA / MSSA SCREEN BY PCR, 2022-12-18 Virgilio Nunes [facility] ersity of NARES 15:03:00 [facility] BASIC METABOLIC PANEL (NA, K, 2022-12-18 Jillian [place] of CL, CO2, GLUCOSE, BUN, 08:52:00 [facility] CREATININE, CA) Branch CBC WITH DIFF 2022-12-18 Padmini [facility] of 08:52:00 [facility] AC PANEL 20 + LACTIC ACID 2022-12-18 Jem [place] niversity of 08:52:00 [facility] XR CHEST 1 VW 2022-12-18 [facility] of 08:45:00 [facility] XR ABDOMEN 1 VW 2022-12-17 [facility] of 19:50:00 [facility] URINE CULTURE 2022-12-17 [facility] of 17:05:00 [facility] XR KUB 2022-12-17 [facility] of 16:28:00 [facility] BLOOD CULTURE SCREEN 2022-12-17 [facility] 09:56:00 [facility] URINALYSIS 2022-12-17 [facility] of 09:22:00 [facility] HB ECG ROUTINE & RHYTHM STRIP 2022-12-17 Jillian [place] [facility] of 09:12:23 [facility] XR CHEST 1 VW 2022-12-17 [facility] of 09:10:00 [facility] TROPONIN I 2022-12-17 [facility]admin[facility] of 08:57:00 [facility] BASIC METABOLIC PANEL (NA, K, 2022-12-17 Jillian [facility] of CL, CO2, GLUCOSE, BUN, 08:57:00 [facility] ical CREATININE, CA) Branch CBC WITH DIFF 2022-12-17 [facility] of 08:57:00 [facility] D-DIMER 2022-12-17 [facility] of 08:57:00 [facility] N-TERMINAL PRO-BNP 2022-12-17 [facility] of 08:57:00 [facility] SODIUM 2022-12-17 [facility] of 02:09:00 [facility] AMMONIA, PLASMA 2022-12-16 Hallie [facility] of 19:40:00 [facility] SODIUM 2022-12-16 [facility] of 19:16:00 [facility] URINALYSIS 2022-12-16 [place] [facility] of 19:09:00 [facility] CT HEAD WO CONTRAST 2022-12-16 Hallie [facility] o f 15:04:41 [facility] SODIUM 2022-12-16 [facility] of 14:01:00 [facility] MAGNESIUM 2022-12-16 Sen [facility] of 14:01:00 [facility] SODIUM 2022-12-16 [facility] of 08:39:00 [facility] BASIC METABOLIC PANEL (NA, K, 2022-12-16 Jillian [facility] of CL, CO2, GLUCOSE, BUN, 08:39:00 [facility] CREATININE, CA) Branch CBC WITH DIFF 2022-12-16 [facility]admin[facility] of 08:39:00 [facility] SODIUM 2022-12-16 Guymon [facility] of 02:14:00 [facility] SODIUM 2022-12-15 [facility] of 20:43:00 [facility] SODIUM 2022-12-15 [facility] of 13:09:[address] [facility] [address] HEAD WO CONTRAST 2022-12-15 Micheal Maya [facility] of 09:01:00 [facility] PHOSPHORUS 2022-12-15 [facility] of 08:32:00 [facility] MAGNESIUM 2022-12-15 [facility] of 08:32:00 [facility] BASIC METABOLIC PANEL (NA, K, 2022-12-15 Micheal Maya [facility] [employer] of CL, CO2, GLUCOSE, BUN, 08:32:00 [facility] ical CREATININE, CA) Branch CBC WITH DIFF 2022-12-15 Micheal Maya [place] of 08:32:00 [facility] SODIUM 2022-12-15 [facility] of 01:18:00 [facility] SODIUM 2022-12-14 Guymon [facility] of 19:21:00 [facility] SODIUM 2022-12-14 Gu[place]on [facility] of 13:36:00 [facility] BASIC METABOLIC PANEL (NA, K, 2022-12-14 Jillian [place] of CL, CO2, GLUCOSE, BUN, 07:49:00 [facility] ical CREATININE, CA) Branch CBC WITH DIFF 2022-12-14 Jem [place] of 07:49:00 [facility] SODIUM 2022-12-14 [facility] of 01:07:00 [facility] SODIUM 2022-12-13 Guymon [facility] of 19:05:00 [facility] POCT GLUCOSE (AUTOMATED) 2022-12-13 Neeru Britton [facility] of 16:46:00 [facility] SODIUM 2022-12-13 [facility] of 12:42:00 [facility] POCT GLUCOSE (AUTOMATED) 2022-12-13 Neeru Britton [facility] of 12:42:00 [facility] MAGNESIUM 2022-12-13 [place] [facility] of 08:59:00 [facility] BASIC METABOLIC PANEL (NA, K, 2022-12-13 Hudson[facility]asu [place] of CL, CO2, GLUCOSE, BUN, 08:59:00 [facility] ical CREATININE, CA) Branch CBC WITH DIFF 2022-12-13 [facility] [place] of 08:59:[address] [facility] [address] HEAD WO CONTRAST 2022-12-13 [facility] y of 08:36:48 [facility] XR KUB 2022-12-13 [facility] of 07:30:00 [facility] SODIUM 2022-12-13 [facility] of 07:14:00 [facility] SODIUM 2022-12-13 Guymon, [facility] of 02:15:00 [facility] XR ABDOMEN 1 VW 2022-12-13 [facility] of 00:44:10 [facility] POCT GLUCOSE (AUTOMATED) 2022-12-12 Neeru Britton [facility] of 21:40:00 [facility] SODIUM 2022-12-12 Gu[facility] of 20:04:00 [facility] XR CHEST 1 VW 2022-12-12 [facility] of 18:38:00 [facility] CT ANGIOGRAM HEAD 2022-12-12 [facility] of 16:58:31 [facility] POCT GLUCOSE (AUTOMATED) 2022-12-12 Neeru Britton [facility] of 16:36:00 [facility] SODIUM 2022-12-12 Gu[facility] of 14:22:00 [facility] POCT GLUCOSE (AUTOMATED) 2022-12-12 Neeru Britton [facility] of 13:12:00 [facility] CBC WITH DIFF 2022-12-12 Smith Sterling of 09:00:00 [facility] BASIC METABOLIC PANEL (NA, K, 2022-12-12 Smith Sterling iversity of CL, CO2, GLUCOSE, BUN, 08:28:00 [facility] ical CREATININE, CA) Branch CT HEAD WO CONTRAST 2022-12-12 [facility] y of 06:42:[address] [facility] [address] HEAD WO CONTRAST 2022-12-12 Smith Sterling o f 02:25:00 [facility] POCT GLUCOSE (AUTOMATED) 2022-12-12 Neeru Britton [facility] of 01:26:00 [facility] ELECTROENCEPHALOGRAM 2022-12-12 Sen [facility] of 00:00:00 [facility] PROTHROMBIN TIME / INR 2022-12-11 Smith Sterling Universit y of 23:14:00 [facility] POCT GLUCOSE (AUTOMATED) 2022-12-11 Neeru Britton [facility] ity of 23:02:00 [facility] BASIC METABOLIC PANEL (NA, K, 2022-12-11 Person, [facility] iversity of CL, CO2, GLUCOSE, BUN, 20:58:00 [facility] ical CREATININE, CA) Branch CBC WITHOUT DIFF 2022-12-11 Person, [facility] of 20:58:00 [facility] PROTHROMBIN TIME / INR 2022-12-11 Person, [facility] y of 20:58:00 [facility] ACTIVATED PARTIAL THRMPLAS 2022-12-11 Person, [facility] rsity of GILSON 20:58:00 [facility] FIBRINOGEN 2022-12-11 Hallie [facility] of 20:58:00 [facility] HB ABO GROUPING 2022-12-11 Person, [facility] of 20:58:00 [facility] PROTHROMBIN TIME / INR 2022-12-11 Kemal [facility] y of 19:45:00 [facility] CT CERVICAL SPINE WO CONTRAST 2022-12-11 Kemal Phillips iversity of 19:37:29 [facility] CT HEAD WO CONTRAST 2022-12-11 Singer Kemalmaynor Sifuentes o f 19:32:19 [facility] LACTIC ACID WHOLE BLOOD 2022-12-11 Kemal Phillips [facility] ty of 19:16:00 [facility] AMMONIA, PLASMA 2022-12-11 Singer [facility] of 19:15:00 [facility] COMP. METABOLIC PANEL ([id number]) 2022-12-11 Kemal Phillips iversity of 19:15:00 [facility] ETHANOL 2022-12-11 Kemal Phillips [place] of 19:15:00 [facility] CBC WITH DIFF 2022-12-11 Kemal Phillips [place] of 19:15:00 [facility] EMERGENCY DEPARTMENT 2022-12-11 Doctor Unassigned, Universi ty of DOCUMENTS 05:01:00 [place] [facility] SMOOTH MUSCLE ANTIBODIES WITH 2022-11-13 [facility] REFLEX TO TITER, IFA 17:48:00 IMMUNOGLOBULIN G, A, M 2022-11-13 [facility] 17:48:00 ANTINUCLEAR ANTIBODIES (ANTHONY) 2022-11-13 [facility] WITH REFLEX TO TITER AND 17:48:00 PATTERN, IMMUNOFLUORESCENCE FERRITIN LEVEL 2022[facility]11-13 [facility] 17:48[facility]00 CERULOPLASMIN LEVEL 2022-11-13 [facility] spital 17:48:00 ALPHA FETOPROTEIN 2022-11-13 [facility] ital 17:48:00 PROTHROMBIN TIME WITH INR 2022-11-13 [facility] 17:48:00 COMPREHENSIVE METABOLIC PANEL 2022-11-13 [facility] 17:48:00 CBC WITH PLATELET AND 2022-11-13 [facility] DIFFERENTIAL 17:48:00 HEPATITIS C ANTIBODY 2022-11-13 [facility] ospital 17:48:00 HEPATITIS B SURFACE ANTIGEN 2022-11-13 [facility] 17:48:00 HEPATITIS B SURFACE ANTIBODY 2022-11-13 [facility] 17:48:00 HEPATITIS B CORE ANTIBODY 2022-11-13 [facility] TOTAL 17:48:00 HEPATITIS A ANTIBODY TOTAL 2022-11-13 [facility] 17:48:00 ALPHA-1 ANTITRYPSIN LEVEL 2022-11-13 [facility] 17:48:00 ESTIMATED GFR 2022-11-13 [facility] al 17:48:00 HEPATITIS A ANTIBODY IGM 2022-11-13 [facility] 17:48:00 XR CHEST 2 VW 2022-04-09 [facility] of 17:01:52 Jordy [facility] CBC WITH DIFF 2022-04-09 [facility] of 16:31:00 [facility] 1 VW 2022-04-08 Rajeev Wright [place] of 15:38:46 [facility] MAGNESIUM 2022-04-07 Drew Weinstein [place] of 08:49:00 [facility] TROPONIN I 2022-04-07 Abdullah, [facility] of 08:49:00 [facility] BASIC METABOLIC PANEL (NA, K, 2022-04-07 Drew Weinstein Un iversity of CL, CO2, GLUCOSE, BUN, 08:49:00 [place] [facility] CREATININE, [place]) Branch N-TERMINAL PRO-BNP 2022-04-07 Drew Weinstein [place] of 08:49:00 [facility] PHOSPHORUS 2022-04-06 Ragini [facility] of 09:25:00 [facility] MAGNESIUM 2022-04-06 [facility] of 09:25:00 [facility] TROPONIN I 2022-04-06 [facility] of 09:25:00 [facility] HEPATIC FUNCTION PANEL 2022-04-06 [facility] ([id number][facility] (ALB,T.PRO,BILI 09:25:00 [place] [facility] T,BU/BC,ALT,AST,ALK PHOS) Branch BASIC METABOLIC PANEL (NA, K, 2022-04-06 Drew Weinstein Un iversity of CL, CO2, GLUCOSE, BUN, 09:25:00 [place] [facility] CREATININE, CA) Branch CBC WITH DIFF 2022-04-06 Drew Weinstein [place] of 09:25:00 [facility] N-TERMINAL PRO-BNP 2022-04-06 Vick [facility] of 09:25:00 [facility] PHOSPHORUS 2022-04-05 Vick [facility] of 09:47:00 [facility] MAGNESIUM 2022-04-05 Vick [facility] of 09:47:00 [facility] TROPONIN I 2022-04-05 [facility] of 09:47:00 [facility] BASIC METABOLIC PANEL (NA, K, 2022-04-05 VickDrew Un iversity of CL, CO2, GLUCOSE, BUN, 09:47:00 [place] [facility] CREATININE, CA) Branch CBC WITH DIFF 2022-04-05 Xander [facility] of 09:47:00 [facility] N-TERMINAL PRO-BNP 2022-04-05 [facility] of 09:47:00 [facility] TROPONIN I 2022-04-04 Vick [facility] of 21:12:00 [facility] TRANSTHORACIC ECHO (TTE) 2022-04-04 Vick Drew [facility] ity of COMPLETE 16:15:00 [facility] PHOSPHORUS 2022-04-04 Vick [facility] of 09:37:00 [facility] MAGNESIUM 2022-04-04 [facility] of 09:37:00 [facility] COMP. METABOLIC PANEL ([id number]) 2022-04-04 Drew Weinstein iversity of 09:37:00 [facility] CBC WITH DIFF 2022-04-04 Vick Drew [place] of 09:37:00 [facility] N-TERMINAL PRO-BNP 2022-04-04 Vick, [facility] of 09:37:00 [facility] FREE T3 2022-04-04 Vick Drew [place] of 09:37:00 [facility] TROPONIN I 2022-04-04 VickDrew [place] of 01:50:00 [facility] CRITICAL CARE 2022-04-04 Dada Zamora [place] of 00:25:47 [facility] COVID-19 (ID NOW RAPID 2022-04-03 [facility] TESTING) 23:50:00 [facility] LAB ONLY COVID INTERPRETATION 2022-04-03 Dada Zamora iversity of 23:50:00 [facility] AC PANEL 20 + LACTIC ACID 2022-04-03 Dada Zamora [facility] sity of 23:18:00 [facility] XR CHEST 1 VW 2022-04-03 Dada Zamora of 23:15:03 [facility] TROPONIN I 2022-04-03 Dada Zamora of 23:00:00 [facility] FREE T4 2022-04-03 Drew Weinstein [place] of 23:00:00 [facility] THYROID STIMULATING HORMONE 2022-04-03 Vick Drew [facility] ersity of 23:00:00 [facility] COMP. METABOLIC PANEL ([id number]) 2022-04-03 Dada Zamora iversity of 23:00:00 [facility] ETHANOL 2022-04-03 Dada Zamora of 23:00:00 [facility] CBC WITH DIFF 2022-04-03 Dada Zamora [place] of 23:00:00 [facility] PROTHROMBIN TIME / INR 2022-04-03 [facility] of 23:00:00 [facility] ACTIVATED PARTIAL THRMPLAS 2022-04-03 [facility]ada [facility] rs[facility] of GILSON 23:00:00 [facility] N-TERMINAL PRO-BNP 2022-04-03 Dada Zamora [place] of 23:00:00 [facility] HB ECG ROUTINE & RHYTHM STRIP 2022-04-03 Dada Zamora iversity of 22:59:16 [facility] HOSPITAL ADMISSION 2022-04-03 Doctor Unassigned, [place] of 05:01:00 [place] [facility] AMMONIA, PLASMA 2021-10-21 Drew Weinstein [place] of 08:38:00 [facility] BASIC METABOLIC PANEL (NA, K, 2021-10-21 Drew Weinstein iversity of CL, CO2, GLUCOSE, BUN, 08:38:00 [place] [facility] CREATININE, [place]) Branch AMMONIA, PLASMA 2021-10-20 Gideon Argueta of 09:58:00 [facility] BASIC METABOLIC PANEL (NA, K, 2021-10-20 Cyrus bauerel Bear of CL, CO2, GLUCOSE, BUN, 09:58:00 [place] [facility] CREATININE, CA) Branch CBC WITH DIFF 2021-10-20 Gideon Argueta of 09:58:00 [facility] AMMONIA, PLASMA 2021-10-19 Drew Weinstein of 13:37:00 [facility] PHOSPHORUS 2021-10-19 Drew Weinstein of 09:59:00 [facility] MAGNESIUM 2021-10-19 Drew Weinstein of 09:59:00 [facility] VITAMIN B12, LEVEL 2021-10-19 Endy Mendoza [place] of 09:59:00 [facility] FOLATE 2021-10-19 Endy Mendoza [place] of 09:59:00 [facility] BASIC METABOLIC PANEL (NA, K, 2021-10-19 Drew Weinstein iversity of CL, CO2, GLUCOSE, BUN, 09:59:00 [place] [facility] CREATININE, CA) Branch CBC WITH DIFF 2021-10-19 Drew Weinstein of 09:59:00 [facility] GLYCOSYLATED HEMOGLOBIN (A1C) 2021-10-19 Gideon Argueta [place] of 09:59:00 [facility] COVID-19 (ID NOW RAPID 2021-10-18 [facility]ING) 22:49:00 [facility] LAB ONLY COVID INTERPRETATION 2021-10-18 Wes Gonzalez [facility] of 22:49:00 [facility] AMMONIA, PLASMA 2021-10-18 [facility] o f 20:54:00 [facility] PROTHROMBIN TIME / INR 2021-10-18 [place] rsity of 20:54:00 [facility] PHOSPHORUS 2021-10-18 [facility] of 20:53:00 [facility] MAGNESIUM 2021-10-18 [facility] of 20:53:00 [facility] COMP. METABOLIC PANEL ([id number]) 2021-10-18 [facility] of 20:53:00 [facility] CBC WITH DIFF 2021-10-18 [facility] o f 20:53:00 [facility] XR CHEST 1 VW 2021-10-18 [facility] o f 20:35:00 [facility] CONSENT/REFUSAL FOR DIAGNOSIS 2021-10-18 Doctor Unassigned, University of AND TREATMENT 19:48:29 [place] [facility] Plan of Care Planned Activity Planned Date Details Comments Source Future Scheduled 2023-02-23 Screening for [facility] Test 11:16:56 malignant neoplasm of colon (procedure) [code = 593894201] Future Scheduled 2023-02-23 Screening [facility] Test 11:16:56 malignant neoplasm of colon (procedure) [code = 566264461] Future Scheduled 2023-02-23 Screening for [facility] Test 11:16:56 malignant neoplasm of colon (procedure) [code = 176008497] Future Scheduled 2023-02-23 COVID-19 VACCINE (#1) [facility] Test 11:16:56 [code = COVID-19 VACCINE (#1)] Future Scheduled 2023-02-23 Screening for [facility] Test 11:16:56 malignant neoplasm of cervix (procedure) [code = 219332342] Future Scheduled 2023-02-23 BREAST CANCER [facility] Test 11:16:56 SCREENING [code = BREAST CANCER SCREENING] Future Scheduled 2023-02-23 [facility] Test 11:16:56 malignant neoplasm of colon (procedure) [code = 288378234] Future Scheduled 2023-02-23 [facility] Test 11:16:56 malignant neoplasm of colon (procedure) [code = 039068319] Future Scheduled 2023-02-23 SHINGLES VACCINES (1 [facility] Test 11:16:56 of 2) [code = SHINGLES VACCINES (1 of 2)] Future Scheduled 2023-02-23 HEPATITIS B VACCINES [facility] Test 11:16:56 (1 of 3 - Risk 3-dose series) [code = HEPATITIS B VACCINES (1 of 3 - Risk 3-dose series)] Future Scheduled 2023-02-23 INFLUENZA VACCINE [facility] 11:16:56 [code = INFLUENZA VACCINE] Future Scheduled 2023-02-23 65+ [facility]OCOCCAL [facility] Test 11:16:56 VACCINE (2 - PCV) [code = 65+ PNEUMOCOCCAL VACCINE (2 - PCV)] Encounters Start End Encounter Admission Attending Care Care Encounter Source Date/Time Date/Time Type Type Clinicians Facility Department ID 2023-02-11 2023-02-11 Telephone Cristino 1.2.840.1 [id number] Methodi 00:00:00 00:00:[address] 3.430.2.7 Hospit a .3.304918 l .8 2023-02-04 2023-02-04 Orders Doctor HOLLIDAY 1.2.840.114 [id number] Univers 00:00:00 00:00:00 Only Unassigned, KRISTINE 350.1.13.10 ity of [place] [facility] 4.2.7.2.686 Vince as [id number] [address] 2022-12-11 2023-01-08 Inpatient T JAIME OHJG [facility] [id number] Univers 15:54:00 19:53:00 SUMIT ity of [facility] 2022-12-11 2023-01-08 Hospital Solange Hinton 1.2.840 .114 [id number] Univers 15:54:00 19:53:00 Encounter Neeru BrittonY 350.1.13.10 ity of [facility] 4.2.7.2. [address] [place] Sumit Sandoval [id number] [place] [id number] Branch 2022-12-11 2022-12-11 Emergency [facility] ERT [id number] Univers 13:59:00 15:49:00 KEMAL jonathanwesly of [facility] 2022-12-11 2022-12-11 Emergency [facility] [id number] Univers 13:59:00 15:49:00 Kemal JULES 350.1.13.10 i ty [facility] 4.2.7.2.686 [facility] [id number] [place] [id number] Branch 2022-11-13 2022-11-13 Lab Pablo, 1.2.840.1 [id number] Methodi 12:40:00 12:45:[address] 3.430.2.7 Hospit a .3.720318 l .8 2022-11-13 2022-11-13 Office Pablo, 1.2.840.1 [id number] Methodi 10:00:00 12:21:40 Visit Priya 36664.1.[address] 3.430.2.7 Hospit a .3.890059 l .8 2022-11-13 2022-11-13 Outpatient PABLO, [facility] [id number] [address] [place] 00:00:00 00:00:[address] PRI[address] 2022-11-13 2022-11-13 Outpatient PABLO, [facility] [id number] 813 [place] 00:00:00 00:00:[address] 2022-11-13 2022-11-13 Travel 1.2.840.1 [id number] [id number] Methodi 00:00:00 00:00:[address] 3.430.2.7 0.2.7.3.698 spita .3.563033 084.8 l .8 2022-09-15 2022-09-15 Abstract Missael, 1.2.840.1 [id number] Methodi 00:00:00 00:00:[address] 3.430.2.7 Hospit a .3.383440 l .8 2022-09-15 2022-09-15 Travel 1.2.840.1 1.2.273.089 [id number] Methodi 00:00:00 00:00:[address] 3.430.2.7 0.2.7.3.698 Ho spita .3.823803 084.8 l .8 2022-06-26 2022-06-26 Telephone [facility] 1.2.840.114 [id number] Univers 00:00:00 00:00:00 Garrick Glasgow MULTISPEC 350.1.13.10 ity of [place] [id number] [facility] [address] [facility] 2022-06-17 2022-06-17 Telephone [facility] [id number] [id number] Univers 00:00:00 00:00:00 Kalpana MULTISPEC 350.1.13.10 ity [place] [id number] [place] [id number] [place] [facility] 2022-04-11 2022-04-11 Transition SENIA Adams 1.2.840.114 [id number] Univers 00:00:00 00:00:00 of Care Mary GUERREROY 350.1.13.10 it y of [place] [id number] [place] [id number] Branch 2022-04-03 2022-04-10 Inpatient U RAJEEV WRIGHT [facility] [id number] Univers 17:53:00 15:53:00 RAJEEV WRIGHT ity of [facility] 2022-04-03 2022-04-10 [facility] Dada Zamora [facility] 1.2.840.1 14 [id number] Univers 17:53:00 15:53:00 Encounter Drew Weinstein [facility] 350.1.13.10 ity of Rajeev Wright 4.2.7.2.686 [facility] [phone] [facility] [address] ([facility]) 2022-03-04 2022-03-04 Outpatient AURELIA Mccall, HCAPM HCAPM [id number] [facility] 12:24:00 12:24:00 Shola Cavanaugh [facility] 2022-03-04 2022-03-04 Outpatient AURELIA Mccall, HCAPM HCAPM [id number] [facility] 12:24:00 12:24:00 Shola [id number] [facility] 2022-02-12 2022-02-12 Outpatient Stefany, HCAWU HCAWU [id number] [facility] 14:51:00 14:51:00 Shola Cavanaugh [facility] 2021-11-01 2021-11-01 Dany Rodriguez [facility] 1.2.461.043 [id number] Univers 00:00:00 00:00:00 Marcela Patel [employer] 350.1.13.10 ity of [facility] 4.2.7.2.686 Vince as MATERNAL [phone] Med ical & CHILD 107 [facility] 2021-10-22 2021-10-22 Transition SENIA Grady 1.2.840.114 [id number] Univers 00:00:00 00:00:00 of Care Joanna [place] 350.1.13.10 i [place] [id number] [facility] [address] 2021-10-18 2021-10-21 Inpatient X [facility] [id number] Univers 15:01:00 19:05:00 DREW ity of [facility] 2021-10-18 2021-10-21 [facility] Jose Martin Gonzalez [facility] 1.2.8 40.114 [id number] Univers 15:01:00 19:05:00 Encounter Drew Weinstein [place] 350.1.13.10 [place] [phone] [facility] [address] 2021-10-18 2021-10-18 Orders Doctor MIYA 1.2.840.114 [id number] Univers 00:00:00 00:00:00 Only Unassigned, KRISTINE 350.1.13.[address] [facility] 4.2.7.2.686 Vince as [phone] [facility] [address] 2021-10-14 2021-10-14 Telephone [facility] 1.2.332.246 [id number] 0004 Univers 00:00:00 00:00:00 Andrews MULTISPEC 350.1.13.10 ity of [facility] 4.2.7.2.686 [facility] [id number] [address] [facility] 2021-10-10 2021-10-10 [facility] YamilkakyMIYA lundy 1.2.840.114 [id number] Univers 12:06:00 23:59:00 Encounter Andrews KRISTINE 350.1.13.10 ity of [facility] 4.2.7.2.686 Vince as [phone] [facility] [address] 2021-10-10 2021-10-10 Letter [facility] 1.2.840.114 [id number] Univers 00:00:00 00:00:00 (Out) Andrews MULTISPEC 350.1.13.10 ity of [facility] 4.2.7.2.686 [facility] s [place] [phone] [address] [facility] 2021-10-08 2021-10-08 Telephone [facility] 1.2.015.832 [id number] Univers 00:00:00 00:00:00 Andrews MULTISPEC 350.1.13.10 ity of [facility] 4.2.7.2.68[facility] s [place] [phone] [address] [facility] 2021-10-08 2021-10-08 Telephone [facility] 1.2.968.168 [id number] Univers 00:00:00 00:00:00 Andrews MULTISPEC 350.1.13.10 [place] [id number] [address] [facility] 2021-09-26 2021-09-26 Telephone Saran OHJG 1.2.594.532 [id number] Univers 00:00:00 00:00:00 Andrews MULTISPEC 350.1.13.10 [place] [id number] [address] [facility] 2021-06-24 2021-06-24 Patient Alondra Taalvera 1.2.840.114 [id number] Univers 00:00:00 00:00:00 Outreach E [place] 350.1.13.10 i [id number] [address] 2021-05-29 2021-05-29 Patient Alondra Talavera 1.2.840.114 [id number] Univers 00:00:00 00:00:00 Outreach E [place] 350.1.13.10 [id number] [address] 2021-05-28 2021-05-28 Patient Alondra Talavera 1.2.840.114 [id number] Univers 00:00:00 00:00:00 Outreach E [place] 350.1.13.10 [id number] [address] 2021-04-29 2021-04-29 Patient Alondra Talavera 1.2.840.114 [id number] Univers 00:00:00 00:00:00 Outreach E [place] 350.1.13.10 i ty [id number] [address] 2021-04-26 2021-04-26 Patient Alondra Talavera 1.2.840.114 [id number] Univers 00:00:00 00:00:00 Outreach E [place] 350.1.13.10 i ty [place] [phone] [facility] [address] 2021-04-24 2021-04-24 Transition Senia Sood 1.2.840.114 [id number] Univers 00:00:00 00:00:00 of Care Arianna [place] 350.1.13.10 it y of [place] [id number] [facility] [address] 2021-04-15 2021-04-21 [facility] Dolly Vazquez 1.2.84 0.114 [id number] Univers 13:48:00 15:08:00 Encounter Ayden Rivera 350.1.13.10 ity of [facility] 4.2.7.2.686 [place] Jeremiah Irizarry [phone] Medical [address] 2021-04-15 2021-04-21 Inpatient [facility] [id number] Univers 13:48:00 15:08:00 AYDEN ity of [facility] 2021-04-18 2021-04-18 Anesthesia Gab Choi 1.2.840 .1 [id number] Univers 14:06:00 14:58:00 Event Mary Fishman 71996.1.1 ity of 3.104.2.7 [place] .3.119814 Medica l .8 Branch 2021-04-18 2021-04-18 Surgery Parlbudi, 1.2.840.1 [id number] [id number] Univers 13:20:00 14:20:00 Sanket 81160.1.1 ity of 3.104.2.7 [place] .3.767907 Medica l .8 Branch 2021-04-18 2021-04-18 Travel 1.2.840.1 1.2.301.039 [id number] Univers 00:00:00 00:00:00 99925.1.1 350.1.13.10 ity of 3.104.2.[place].698 [place] .3.594768 084.8 Medica l .8 Branch 2021-04-15 2021-04-15 Emergency X [facility] ERT [id number] Univers 13:27:00 13:27:00 ity of [facility] 2021-04-15 2021-04-15 Travel 1.2.840.1 1.2.458.935 [id number] Univers 00:00:00 00:00:00 54859.1.1 350.1.13.10 ity of 3.104.2.7 4.[place].3.698 [place] .3.855058 084.8 Medica l .8 [place] 2021-02-06 2021-02-08 Emergency LlanesYana rossi S 1.2.840.1 [id number] Univers 12:26:00 14:55:00 ChiquiGoranMateusz 92818.1.1 ity of 3.104.2.7 [place] .3.216945 Medica l .8 [place] 2021-02-06 2021-02-06 Emergency X [facility] ERT [id number] Univers 12:11:00 12:11:00 ity of [facility] 2021-02-06 2021-02-06 Travel 1.2.840.1 1.2.088.091 [id number] Univers 00:00:00 00:00:00 65002.1.1 350.1.13.10 ity of 3.104.2.7 4.[place]3.698 [place] .3.718914 084.8 Medica l .8 [place] Results Test Description Test Time Test Comments Results Result Comments Source BASIC METABOLIC PANEL (NA, K, CL, CO2, GLUCOSE, BUN, 2022-12 21:41:28 CREATININE, CA) Test Item Value Reference Range Interpretation Comme nts NA (test code = 9038054246) 136 mmol/L 135-145 K (test code = 4023431525) 2.6 mmol/L 3.5-5.0 LL CL (test code = 9857045495) 107 mmol/L 98-108 CO2 TOTAL (test code = 0165477333) 20 mmol/L 23-31 L AGAP (test code = 8730096907) 9 2-16 BUN (test code = 5687112554) 2 mg/dL 7-23 L GLUCOSE (test code = 5649652669) 129 mg/dL 70-110 H CREATININE (test code = 0.53 mg/dL 0.50-1.04 8864902123) CALCIUM (test code = 8864294054) 8.2 mg/dL 8.6-10.6 L eGFR (test code = 7394631300) 115.8 mL/min/1.73m2 SERA (test code = SERA) Association of Glomerular Filtration Rate (GFR) and Staging of Kidney Disease* + +------- + --------+| GFR (mL/min/1.73 m2) ?| With Kidney Damage ?| ?Without Kidney Damage+ +- + +| ?>90 ?| ?Stage one ?| ? Normal ?+ +------ + ---------+| ?60-89 ?| ?Stage two ?| ? Decreased GFR ? + +------- + --------+| ?30-59 ?| ?Stage three ?| ? Stage three ? + +------- + --------+| ?15-29 ?| ?Stage four ? | ? Stage four ?+ +------ + ---------+| ?<15 (or dialysis) ? ?| ?Stage five ? | ? Stage five ?+ +------ + ---------+ *Each stage assumes the associated GFR level has been in effect for at least three months. ?Stages 1 to 5, with or without kidney disease, indicate chronic kidney disease. Notes: Determination of stages one and two (with eGFR >59mL/min/1.73 m2) requires estimation of kidney damage for at least three months as defined by structural or functional abnormalities of the kidney, manifested by either:Pathological abnormalities or Markers of kidney damage (including abnormalities in the composition of the blood or urine or abnormalities in imaging tests). Lab Interpretation (test code = Abnormal 24747-5) [facility] 21:31:26 Test Item Value Reference Range Interpretation Comments MAGNESIUM (test code = 1121050198) 1.4 mg/dL 1.7-2.4 L Lab Interpretation (test code = Abnormal 93288-8) [facility] (56778[facility] (ALB,T.PRO,BILI T,BU/BC,ALT,AST,ALK PHOS)2022-12-28 21:31:26 Test Item Value Reference Range Interpretation Comments TOTAL BILI (test code = 9181292521) 0.5 mg/dL 0.1-1.1 BILI UNCON (test code = 6996054069) 0.4 mg/dL 0.1-1.1 BILI CONJ (test code = 9521279712) 0.0 mg/dL 0.0-0.3 T PROTEIN (test code = 6335290141) 6.2 g/dL 6.3-8.2 L ALBUMIN (test code = 8569244478) 2.6 g/dL 3.5-5.0 L ALK PHOS (test code = 0741879743) 90 U/L 34-122 ALTv (test code = 1742-6) 29 U/L 5-35 AST(SGOT) (test code = 6924700933) 58 U/L 13-40 H Lab Interpretation (test code = Abnormal 51150-7) [facility] METABOLIC PANEL (NA, K, CL, CO2, GLUCOSE, BUN, CREATININE, CA)2022-12-24 23:19:37 Test Item Value Reference Range Interpretation Comments NA (test code = 141 mmol/L 135-145 4823837671) K (test code = 3.0 mmol/L 3.5-5.0 L 2558459890) CL (test code = 108 mmol/L 98-108 0783252139) CO2 TOTAL (test code = 23 mmol/L 23-31 0147560507) AGAP (test code = 10 2-16 5868908033) BUN (test code = 8 mg/dL 7-23 6715451583) GLUCOSE (test code = 84 mg/dL 70-110 2651864774) CREATININE (test code = 0.54 mg/dL 0.50-1.04 1804377034) CALCIUM (test code = 8.5 mg/dL 8.6-10.6 L 4401330515) eGFR (test code = 113.3 mL/min/1.73m2 9251433738) SERA (test code = SERA) Association of Glomerular Filtration Rate (GFR) and Staging of Kidney Disease* + --+ --+ ------+| GFR (mL/min/1.73 m2) ?| With Kidney Damage ?| ?Without Kidney Damage+ --------+ --------+ +| ?>90 ?| ?Stage one ?| ? Normal ?+ ---+ ---+ -------+| ?60-89 ?| ?Stage two ?| ? Decreased GFR ? + --+ --+ ------+| ?30-59 ?| ?Stage three ?| ? Stage three ? + --+ --+ ------+| ?15-29 ?| ?Stage four ? | ? Stage four ?+ ---+ ---+ -------+| ?<15 (or dialysis) ? ?| ?Stage five ? | ? Stage five ?+ ---+ ---+ -------+ *Each stage assumes the associated GFR level has been in effect for at least three months. ?Stages 1 to 5, with or without kidney disease, indicate chronic kidney disease. Notes: Determination of stages one and two (with eGFR >59mL/min/1.73 m2) requires estimation of kidney damage for at least three months as defined by structural or functional abnormalities of the kidney, manifested by either:Pathological abnormalities or Markers of kidney damage (including abnormalities in the composition of the blood or urine or abnormalities in imaging tests). Lab Interpretation Abnormal (test code = 34113-8) [facility] METABOLIC PANEL (NA, K, CL, CO2, GLUCOSE, BUN, CREATININE, CA)2022-12-23 23:27:41 Test Item Value Reference Range Interpretation Comments NA (test code = 134 mmol/L 135-145 L 8039265069) K (test code = 3.2 mmol/L 3.5-5.0 L 9814009698) CL (test code = 106 mmol/L 98-108 9997278164) CO2 TOTAL (test code = 20 mmol/L 23-31 L 6487826330) AGAP (test code = 8 2-16 6275525469) BUN (test code = 6 mg/dL 7-23 L 1808364038) GLUCOSE (test code = 132 mg/dL 70-110 H 0055641551) CREATININE (test code = 0.51 mg/dL 0.50-1.04 2145394654) CALCIUM (test code = 8.7 mg/dL 8.6-10.6 3059891930) eGFR (test code = 121.0 mL/min/1.73m2 5485680541) SERA (test code = SERA) Association of Glomerular Filtration Rate (GFR) and Staging of Kidney Disease* + --+ --+ ------+| GFR (mL/min/1.73 m2) ?| With Kidney Damage ?| ?Without Kidney Damage+ --------+ --------+ +| ?>90 ?| ?Stage one ?| ? Normal ?+ ---+ ---+ -------+| ?60-89 ?| ?Stage two ?| ? Decreased GFR ? + --+ --+ ------+| ?30-59 ?| ?Stage three ?| ? Stage three ? + --+ --+ ------+| ?15-29 ?| ?Stage four ? | ? Stage four ?+ ---+ ---+ -------+| ?<15 (or dialysis) ? ?| ?Stage five ? | ? Stage five ?+ ---+ ---+ -------+ *Each stage assumes the associated GFR level has been in effect for at least three months. ?Stages 1 to 5, with or without kidney disease, indicate chronic kidney disease. Notes: Determination of stages one and two (with eGFR >59mL/min/1.73 m2) requires estimation of kidney damage for at least three months as defined by structural or functional abnormalities of the kidney, manifested by either:Pathological abnormalities or Markers of kidney damage (including abnormalities in the composition of the blood or urine or abnormalities in imaging tests). Lab Interpretation Abnormal (test code = 36373-9) [facility]23[facility]30 23:27:41 Test Item Value Reference Range Interpretation Comments MAGNESIUM (test code = 1905757873) 1.9 mg/dL 1.7-2.4 Lab Interpretation (test code = Normal 96826-3) [facility], [id number] 16:52:40 Test Item Value Reference Range Interpretation Comments AMMONIA (test code = 0483718753) 9 umol/L 9-33 Lab Interpretation (test code = Normal 09643-7) [facility]2022-12-19 20:08:34 Test Item Value Reference Range Interpretation Comments POCT GLU (test code = 2009292247) 146 mg/dL 70-110 H Lab Interpretation (test code = Abnormal 62606-0) [facility] T[facility] Level - Draw within 30 minutes prior to 4TH dose.2022-12-19 00:49:33 Test Item Value Reference Range Interpretation Comments VANCO TROUGH (test code 8.8 ug/mL 10.0-20.0 L = 3783373633) SERA (test code = SERA) Toxic Range: ?>20 ug/mL 15-20 ug/mL is recommended for severe infection or when Vancomycin TAWNY is greater than or equal to 2. Lab Interpretation (test Abnormal code = 02681-0) [facility] Panel 20 + Lactic [id number] 09:13:41 Test Item Value Reference Range Interpretation Comments PH (test code = 2) 7.45 7.35-7.45 PCO2 (test code = 27 See_Comment L [Automate d 9645294710) message] The sy stem which generated this result transmitted reference range : 35 - 45 mmHg. The reference range was not used to interpret this result as normal/abnormal . PO2 (test code = 123 See_Comment H [Automated 6192770147) message] The sy stem which generated this result transmitted reference range : 80 - 100 mmHg. The reference range was not used to interpret this result as normal/abnormal . HCO3 (test code = 18 See_Comment L [Automate d 3736485045) message] The sy stem which generated this result transmitted reference range : 22 - 26 mEq/L. The reference range was not used to interpret this result as normal/abnormal . BE (test code = -5.0 See_Comment L [Automated 5718907267) message] The sy stem which generated this result transmitted reference range : -3.0 - 3.0 mEq/ L. The reference r hannah was not used to interpret this result as normal/abnormal . THB (test code = 8.5 g/dL 12.0-16.0 L 2566916007) %O2HB (test code = 98.3 % 94.0-99.0 7661759721) %COHB ART (test code = 0.1 % 0.0-1.5 9738372219) %METHB ART (test code = 0.1 % 0.4-1.5 L 9280349266) VOL%O2 ART (test code = 12.0 % 15.0-23.0 L 1663554601) NA (test code = 147 mmol/L 135-145 H 3690648030) K+ (test code = 3.1 mmol/L 3.5-5.0 L 7117052201) AC CA IONZ (test code = 4.80 mg/dL 4.50-5.30 7354614793) GLUCOSE (test code = 188 mg/dL 70-110 H 0612672441) LACTIC ACID (test code 1.55 mmol/L 0.50-2.20 = 7735532255) Lab Interpretation Abnormal (test code = 07836-9) [facility]2023-05-24 02:25:05 Test Item Value Reference Range Interpretation Comments NA (test code = 5336756506) 145 mmol/L 135-145 Lab Interpretation (test code = Normal 46119-6) [facility]2023-05-23 02:39:40 Test Item Value Reference Range Interpretation Comments NA (test code = 8123392692) 149 mmol/L 135-145 H Lab Interpretation (test code = Abnormal 67879-9) [facility] GLUCOSE (AUTOMATED)2022-12-13 16:48:03 Test Item Value Reference Range Interpretation Comments POCT GLU (test code = 164 mg/dL 70-110 H Notifi ed Provider [id number]) Lab Interpretation (test Abnormal code = 32844-7) [facility] GLUCOSE (AUTOMATED)2022-12-13 12:45:04 Test Item Value Reference Range Interpretation Comments POCT GLU (test code = 160 mg/dL 70-110 H Notifi ed Provider [id number]) Lab Interpretation (test Abnormal code = 06627-8) [facility] GLUCOSE (AUTOMATED)2022-12-12 21:49:04 Test Item Value Reference Range Interpretation Comments POCT GLU (test code = 136 mg/dL 70-110 H Notifi ed Provider [id number]) Lab Interpretation (test Abnormal code = 16704-1) [facility] GLUCOSE (AUTOMATED)2022-12-12 16:38:09 Test Item Value Reference Range Interpretation Comments POCT GLU (test code = 109 mg/dL 70-110 Notifi ed Provider [id number]) Lab Interpretation (test Normal code = 91906-4) [facility]2022-12-12 13:15:35 Test Item Value Reference Range Interpretation Comments POCT GLU (test code = 111 mg/dL 70-110 H Notifi ed Provider [id number]) Lab Interpretation (test Abnormal code = 99568-2) [facility] with [id number] 09:38:19 Test Item Value Reference Range Interpretation Comments WBC (test code = 10.35 See_Comment [Automated 6690-2) message] The sy stem which generated this result transmitted reference range : 4.30 - 11.10 10*3/?L. The reference range was not used to interpret this result as normal/abnormal . RBC (test code = 3.04 See_Comment L [Automated 789-8) message] The sy stem which generated this result transmitted reference range : 3.93 - 5.25 10*6/?L. The reference range was not used to interpret this result as normal/abnormal . HGB (test code = 9.5 g/dL 11.6-15.0 L 718-7) HCT (test code = 27.6 % 35.7-45.2 L 4544-3) MCV (test code = 90.8 fL 80.6-95.5 787-2) MCH (test code = 31.3 pg 25.9-32.8 785-6) MCHC (test code = 34.4 g/dL 31.6-35.1 786-4) RDW-SD (test code = 52.8 fL 39.0-49.9 H 95344-7) RDW-CV (test code = 16.1 % 12.0-15.5 H 788-0) PLT (test code = 131 See_Comment L [Automated 777-3) message] The sy stem which generated this result transmitted reference range : 166 - 358 10*3/ ?L. The reference r hannah was not used to interpret this result as normal/abnormal . MPV (test code = 10.1 fL 9.5-12.9 86292-4) NRBC/100 WBC (test 0.0 See_Comment [Automat ed code = 6108032300) message] The system which generated this result transmitted reference range : 0.0 - 10.0 /100 WBCs. The refer ence range was not u sed to interpret th is result as normal/abnormal . NRBC x10^3 (test code See_Comment [Auto mated = 6876729600) message] The s ystem which generated this result transmitted reference range : 10*3/?L. The reference range was not used to interpret this result as normal/abnormal . GRAN MAT (NEUT) % 76.8 % (test code = 770-8) IMM GRAN % (test code 0.60 % = 9341890229) LYMPH % (test code = 11.5 % 736-9) MONO % (test code = 10.9 % 5905-5) EOS % (test code = 0.0 % 713-8) BASO % (test code = 0.2 % 706-2) GRAN MAT x10^3(ANC) 7.95 10*3/uL 1.88-7.09 H (test code = 1697922184) IMM GRAN x10^3 (test 0.06 10*3/uL 0.00-0.06 code = 8342579243) LYMPH x10^3 (test code 1.19 10*3/uL 1.32-3.29 L = 731-0) MONO x10^3 (test code 1.13 10*3/uL 0.33-0.92 H = 742-7) EOS x10^3 (test code = 0.03-0.39 L 711-2) BASO x10^3 (test code 0.01-0.07 = 704-7) Lab Interpretation Abnormal (test code = 91385-4) [facility]2022-12-12 01:37:42 Test Item Value Reference Range Interpretation Comments POCT GLU (test code = 9576098081) 133 mg/dL 70-110 H Lab Interpretation (test code = Abnormal 25855-8) [facility]PROTHROM[facility] TIME / [id number] 23:44:34 Test Item Value Reference Range Interpretation Comments PROTIME PATIENT (test 13.9 See_Comment H [Auto mated message] code = 5964-2) The system ich generated this result transmitted ref erence range: 10.1 - 1 2.6 Seconds. The reference range was not used to int erpret this result as normal/abnormal . INR (test code = 6301-6) 1.2 Nor mal INR <1.1; Warfarin Therap eutic range 2.0 to 3. 0 or 2.5 to 3.5, dep ending upon the indica tions. Lab Interpretation (test Abnormal code = 51988-3) [facility]2022-12-11 23:03:36 Test Item Value Reference Range Interpretation Comments POCT GLU (test code = 2476935230) 143 mg/dL 70-110 H Lab Interpretation (test code = Abnormal 10483-0) [facility]2023-05-18 22:05:54 Test Item Value Reference Range Interpretation Comments Fibrinogen (test code = 8865790389) 164 mg/dL 167-453 L Lab Interpretation (test code = Abnormal 22041-7) [facility] Screen - The Type and Screen expires at midnight on the 3rd day after it was drawn. A current Type and Screen is required when RBCs are requested. For all other blood products, a Type and Scree n performed during the current hospitalizati...2022-12-11 21:25:00 Test Item Value Reference Range Interpretation Comments ABO & RH (test code = 20) A POSITIVE IAT (test code = 1185) Negative [facility]PTT2023-[facility]-18 21:23:05 Test Item Value Reference Range Interpretation Comments APTT Patient (test code = 27 See_Comment [ Automated message] 3173-2) The system Artimi[employer] h generated this result transmitted ref erence range: 26 - 36 Seconds. The re ference range was not u sed to interpret this result as normal/abnor mal. Lab Interpretation (test Normal code = 20276-9) [facility]anoProthrombin Time / [id number] 21:23:04 Test Item Value Reference Range Interpretation Comments PROTIME PATIENT (test 13.8 See_Comment H [Auto mated message] code = 5964-2) The system Artimi ich generated this result transmitted ref erence range: 10.1 - 1 2.6 Seconds. The reference range was not used to int erpret this result as normal/abnormal . INR (test code = 6301-6) 1.2 Nor mal INR <1.1; Warfarin Therap eutic range 2.0 to 3. 0 or 2.5 to 3.5, dep ending upon the indica tions. Lab Interpretation (test Abnormal code = 12815-1) [facility] Metabolic Panel (NA, K, CL, CO2, GLUCOSE, BUN, CREATININE, CA)2022-12-11 21:22:03 Test Item Value Reference Range Interpretation Comments NA (test code = 131 mmol/L 135-145 L 1070334010) K (test code = 4.5 mmol/L 3.5-5.0 2449724739) CL (test code = 103 mmol/L 98-108 9771577539) CO2 TOTAL (test code = 19 mmol/L 23-31 L 6446488705) AGAP (test code = 9 2-16 0249699641) BUN (test code = 12 mg/dL 7-23 8599430509) GLUCOSE (test code = 162 mg/dL 70-110 H 1591853914) CREATININE (test code = 0.57 mg/dL 0.50-1.04 6616211592) CALCIUM (test code = 9.0 mg/dL 8.6-10.6 6806600623) eGFR (test code = 106.4 mL/min/1.73m2 9020545181) SERA (test code = SERA) Association of Glomerular Filtration Rate (GFR) and Staging of Kidney Disease* + --+ --+ ------+| GFR (mL/min/1.73 m2) ?| With Kidney Damage ?| ?Without Kidney Damage+ --------+ --------+ +| ?>90 ?| ?Stage one ?| ? Normal ?+ ---+ ---+ -------+| ?60-89 ?| ?Stage two ?| ? Decreased GFR ? + --+ --+ ------+| ?30-59 ?| ?Stage three ?| ? Stage three ? + --+ --+ ------+| ?15-29 ?| ?Stage four ? | ? Stage four ?+ ---+ ---+ -------+| ?<15 (or dialysis) ? ?| ?Stage five ? | ? Stage five ?+ ---+ ---+ -------+ *Each stage assumes the associated GFR level has been in effect for at least three months. ?Stages 1 to 5, with or without kidney disease, indicate chronic kidney disease. Notes: Determination of stages one and two (with eGFR >59mL/min/1.73 m2) requires estimation of kidney damage for at least three months as defined by structural or functional abnormalities of the kidney, manifested by either:Pathological abnormalities or Markers of kidney damage (including abnormalities in the composition of the blood or urine or abnormalities in imaging tests). Lab Interpretation Abnormal (test code = 15812-8) [facility]anoProfile / [id number] 21:18:04 Test Item Value Reference Range Interpretation Comments WBC (test code = 6690-2) 10.59 See_Comment [A utomated message] The system [employer] generated this result transmit mike reference range : 4.30 - 11.10 10*3/?L. The reference range was not used to interpret this result as normal/abnormal . RBC (test code = 789-8) 3.28 See_Comment L [Au tomated message] The system [employer] generated this result transmit mike reference range : 3.93 - 5.25 10* 6/?L. The reference r hannah was not used to interpret this result as normal/abnormal . HGB (test code = 718-7) 10.3 g/dL 11.6-15.0 L HCT (test code = 4544-3) 29.6 % 35.7-45.2 L MCH (test code = 785-6) 31.4 pg 25.9-32.8 MCV (test code = 787-2) 90.2 fL 80.6-95.5 MCHC (test code = 786-4) 34.8 g/dL 31.6-35.1 PLT (test code = 777-3) 132 See_Comment L [Au tomated message] The system [employer] generated this result transmit mike reference range : 166 - 358 10*3/?L. The reference range was not used to interpret this result as normal/abnormal . MPV (test code = 9.7 fL 9.5-12.9 41733-2) RDW-CV (test code = 15.7 % 12.0-15.5 H 788-0) RDW-SD (test code = 52.2 fL 39.0-49.9 H 15287-1) NRBC x10^3 (test code = See_Comment [Au tomated message] 9805040737) The system [facility] generated this result transmit mike reference range : 10*3/?L. The reference range was not used to interpret this result as normal/abnormal . NRBC/100 WBC (test code 0.0 See_Comment [Au tomated message] = 4344026218) The system [facility] generated this result transmit mike reference range : 0.0 - 10.0 /100 WBC s. The reference r hannah was not used to interpret this result as normal/abnormal . IPF % (test code = 0001892200) Lab Interpretation (test Abnormal code = 62258-9) [facility]anoProthrombin Time / [id number] 20:29:34 Test Item Value Reference Range Interpretation Comments PROTIME PATIENT (test 16.2 See_Comment H [Auto mated message] code = 5964-2) The system [employer] generated this result transmitted ref erence range: 12.0 - 1 4.7 Seconds. The reference range was not used to int erpret this result as normal/abnormal . INR (test code = 6301-6) 1.4 Nor mal INR <1.1; Warfarin Therap eutic range 2.0 to 3. 0 or 2.5 to 3.5, dep ending upon the indica tions. Lab Interpretation (test Abnormal code = 34890-1) [facility] PlanoLactic Acid Whole [id number] 20:06:06 Test Item Value Reference Range Interpretation Comments LACTIC ACID (test code = 1.79 mmol/L 0.50-2.20 9402064865) Lab Interpretation (test code = Normal 15071-2) [facility]anoETHANOL2023-05-18 19:47:44 Test Item Value Reference Range Interpretation Comments ALCOHOL (test code = 12 mg/dL 4485672569) SERA (test code = SERA) <10 Amhazjbe79-527 Toxic>100 Depression of PROGRAMMING DIRECTOR>400 Fatalities Reported [facility]anoAMMONIA, [id number] 19:47:44 Test Item Value Reference Range Interpretation Comments AMMONIA (test code = 9366679944) 35 umol/L 9-33 H Lab Interpretation (test code = Abnormal 19793-8) [facility]. METABOLIC PANEL (14153)2022-12-11 19:47:03 Test Item Value Reference Range Interpretation Comments NA (test code = 131 mmol/L 135-145 L 8293211640) K (test code = 4.5 mmol/L 3.5-5.0 9434114324) CL (test code = 102 mmol/L 98-108 1004063344) CO2 TOTAL (test code = 19 mmol/L 23-31 L 7042878757) AGAP (test code = 10 2-16 1048756732) BUN (test code = 11 mg/dL 7-23 0031751877) GLUCOSE (test code = 161 mg/dL 70-110 H 7187195275) CREATININE (test code = 0.61 mg/dL 0.50-1.04 4190073684) TOTAL BILI (test code = 1.1 mg/dL 0.1-1.4 0669107056) CALCIUM (test code = 8.8 mg/dL 8.6-10.6 9355201194) T PROTEIN (test code = 6.7 g/dL 6.3-8.2 1542804463) ALBUMIN (test code = 3.2 g/dL 3.5-5.0 L 0855176256) ALK PHOS (test code = 100 U/L 34-122 8601145955) ALTv (test code = 53 U/L 5-35 H 1742-6) AST(SGOT) (test code = 142 U/L 13-40 H 2162841921) eGFR (test code = 98.4 mL/min/1.73m2 6842259591) SERA (test code = SERA) Association of Glomerular Filtration Rate (GFR) and Staging of Kidney Disease* + --+ --+ ------+| GFR (mL/min/1.73 m2) ?| With Kidney Damage ?| ?Without Kidney Damage+ --------+ --------+ +| ?>90 ?| ?Stage one ?| ? Normal ?+ ---+ ---+ -------+| ?60-89 ?| ?Stage two ?| ? Decreased GFR ? + --+ --+ ------+| ?30-59 ?| ?Stage three ?| ? Stage three ? + --+ --+ ------+| ?15-29 ?| ?Stage four ? | ? Stage four ?+ ---+ ---+ -------+| ?<15 (or dialysis) ? ?| ?Stage five ? | ? Stage five ?+ ---+ ---+ -------+ *Each stage assumes the associated GFR level has been in effect for at least three months. ?Stages 1 to 5, with or without kidney disease, indicate chronic kidney disease. Notes: Determination of stages one and two (with eGFR >59mL/min/1.73 m2) requires estimation of kidney damage for at least three months as defined by structural or functional abnormalities of the kidney, manifested by either:Pathological abnormalities or Markers of kidney damage (including abnormalities in the composition of the blood or urine or abnormalities in imaging tests). Lab Interpretation Abnormal (test code = 72076-7) [facility] WITH [id number] 19:39:24 Test Item Value Reference Range Interpretation Comments WBC (test code = 7.76 See_Comment [Automated 6690-2) message] The sy stem which generated this result transmitted reference range : 4.30 - 11.10 10*3/?L. The reference range was not used to interpret this result as normal/abnormal . RBC (test code = 3.36 See_Comment L [Automated 789-8) message] The sy stem which generated this result transmitted reference range : 3.93 - 5.25 10*6/?L. The reference range was not used to interpret this result as normal/abnormal . HGB (test code = 10.6 g/dL 11.6-15.0 L 718-7) HCT (test code = 29.8 % 35.7-45.2 L 4544-3) MCV (test code = 88.7 fL 80.6-95.5 787-2) MCH (test code = 31.5 pg 25.9-32.8 785-6) MCHC (test code = 35.6 g/dL 31.6-35.1 H 786-4) RDW-SD (test code = 50.1 fL 39.0-49.9 H 59507-2) RDW-CV (test code = 15.5 % 12.0-15.5 788-0) PLT (test code = 137 See_Comment L [Automated 777-3) message] The sy stem which generated this result transmitted reference range : 166 - 358 10*3/ ?L. The reference r hannah was not used to interpret this result as normal/abnormal . MPV (test code = 9.7 fL 9.5-12.9 96968-2) NRBC/100 WBC (test 0.0 See_Comment [Automat ed code = 0098610323) message] The system which generated this result transmitted reference range : 0.0 - 10.0 /100 WBCs. The refer ence range was not u sed to interpret th is result as normal/abnormal . NRBC x10^3 (test code See_Comment [Auto mated = 4365835075) message] The s ystem which generated this result transmitted reference range : 10*3/?L. The reference range was not used to interpret this result as normal/abnormal . GRAN MAT (NEUT) % 62.9 % (test code = 770-8) IMM GRAN % (test code 0.40 % = 6380535472) LYMPH % (test code = 19.2 % 736-9) MONO % (test code = 13.5 % 5905-5) EOS % (test code = 3.4 % 713-8) BASO % (test code = 0.6 % 706-2) GRAN MAT x10^3(ANC) 4.88 10*3/uL 1.88-7.09 (test code = 3611243091) IMM GRAN x10^3 (test 0.03 10*3/uL 0.00-0.06 code = 4435425335) LYMPH x10^3 (test code 1.49 10*3/uL 1.32-3.29 = 731-0) MONO x10^3 (test code 1.05 10*3/uL 0.33-0.92 H = 742-7) EOS x10^3 (test code = 0.26 10*3/uL 0.03-0.39 711-2) BASO x10^3 (test code 0.05 10*3/uL 0.01-0.07 = 704-7) Lab Interpretation Abnormal (test code = 04588-8) [facility] WITH [id number] 17:10:58 Test Item Value Reference Range Interpretation Comments WBC (test code = See_Comment [Automated 6690-2) message] The sy stem which generated this result transmitted reference range : 4.30 - 11.10 10*3/?L. The reference range was not used to interpret this result as normal/abnormal . RBC (test code = See_Comment L [Automated 789-8) message] The sy stem which generated this result transmitted reference range : 3.93 - 5.25 10*6/?L. The reference range was not used to interpret this result as normal/abnormal . HGB (test code = 10.3 g/dL 11.6-15 L 718-7) HCT (test code = 31.1 % 35.7-45.2 L 4544-3) MCV (test code = 99.4 fL 80.6-95.5 H 787-2) MCH (test code = 32.9 pg 25.9-32.8 H 785-6) MCHC (test code = 33.1 g/dL 31.6-35.1 786-4) RDW-SD (test code = 59.7 fL 39-49.9 H 27182-5) RDW-CV (test code = 16.3 % 12-15.5 H 788-0) PLT (test code = See_Comment L [Automated 777-3) message] The sy stem which generated this result transmitted reference range : 166 - 358 10*3/ ?L. The reference r hannah was not used to interpret this result as normal/abnormal . MPV (test code = 10.7 fL 9.5-12.9 22311-8) IPF % (test code = 2.8 % 1.3-7.7 Platelet count 5854962095) measured by fluorescence method. NRBC/100 WBC (test See_Comment [Automat ed code = 0548964458) message] The system which generated this result transmitted reference range : 0.0 - 10.0 /100 WBCs. The refer ence range was not u sed to interpret th is result as normal/abnormal . NRBC x10^3 (test code See_Comment [Auto mated = 7904626682) message] The s ystem which generated this result transmitted reference range : 10*3/?L. The reference range was not used to interpret this result as normal/abnormal . GRAN MAT (NEUT) % 46.5 % (test code = 770-8) IMM GRAN % (test code 0.30 % = 3326469771) LYMPH % (test code = 29.5 % 736-9) MONO % (test code = 14.9 % 5905-5) EOS % (test code = 8.0 % 713-8) BASO % (test code = 0.8 % 706-2) GRAN MAT x10^3(ANC) 4.03 10*3/uL 1.88-7.09 (test code = 0141672220) IMM GRAN x10^3 (test 0.03 10*3/uL 0-0.06 code = 7816499763) LYMPH x10^3 (test code 2.56 10*3/uL 1.32-3.29 = 731-0) MONO x10^3 (test code 1.29 10*3/uL 0.33-0.92 H = 742-7) EOS x10^3 (test code = 0.69 10*3/uL 0.03-0.39 H 711-2) BASO x10^3 (test code 0.07 10*3/uL 0.01-0.07 = 704-7) PLT ESTIMATE (test Decreased Normal A code = 9317-9) Lab Interpretation Abnormal (test code = 25275-1) [facility]Transthor[facility] (TTE)2022-04-04 22:07:12 Test Item Value Reference Range Interpretation Comments Height (test code = in 4914317548) Weight (test code = lbs 9858316585) Systolic BP (test code = mmHg 7308154924) Diastolic BP (test code mmHg = 1153055355) Heart Rate (test code = bpm 6348693274) BSA (test code = 1.76 m2 0386577382) Ao root annulus (test 3.0 cm code = 7092390288) Ao root diam (test code 3.00 cm = 3040624369) Aortic root (test code = 3.0 cm 8103356960) LVOT diameter (test code 2.03 cm = 3254485100) LVOT area (test code = 3.20 cm2 2385158715) LVIDD (test code = 4.60 cm 8921476118) Left Ventricular End 94.9 mL Diastolic Volume by Teichholz Method (test code = 4947497) IVS (test code = 1.35 cm 1662567728) Interventricular Septum 1.35 cm Diastolic Thickness by 2D (test code = 2921236) LVPWD (test code = 1.34 cm 4013438457) PW (test code = 1.34 cm 0.6-1.5 6418856284) EF(Teich) (test code = 60.70 % 7528865929) LVIDS (test code = 3.10 cm 9844287295) Left Ventricular End 37.3 mL Systolic Volume by Teichholz Method (test code = 4940612) FS (test code = 32 % 4750778979) EF - 2D (test code = 60.70 % 60032796) LA size (test code = 4.8 cm 1145243623) TR Peak Amarjit (test code = 288.3 cm/s 8658104226) Triscuspid Valve mmHg Regurgitation Peak Gradient (test code = 0360592585) LAV(MOD-sp4) (test code 83.20 mL = 8796974390) MV stenosis pressure 1/2 64.8 ms time (test code = 6863310210) MV Peak E Amarjit (test code 77.8 cm/s = 2709892286) E wave decelartion time 0.22 s (test code = 1435352121) MV Peak A Amarjit (test code 94.4 cm/s = 4408207669) E/A ratio (test code = ratio 0224357380) MV Prop V (test code = 39.40 cm/s 9405906865) MV E/e' septal (test 10.8 cm/s code = 2521837680) Tapse (test code = 2.7 cm 8908262449) LVOT stroke volume (test 120.20 cm3 code = 2651470698) LVOT peak amarjit (test code 175.1 cm/s = 5526612804) LVOT mn grad (test code mmHg = 6983887405) AV LVOT peak gradient mmHg (test code = 1429760150) LVOT peak VTI (test code 37.3 cm = 1316980986) LV V1 mean (test code = 115.10 cm/s 5805793476) Aortic valve mean 177.8 cm/s velocity (test code = 2262132946) Ao peak amarjit (test code = 263.7 cm/s 9049873746) Ao VTI (test code = 52.7 cm 7656297919) AV area by cont VTI 2.3 cm2 (test code = 7903614294) AV area peak amarjit (test 2.1 cm2 code = 7196523934) Ao max PG (test code = 27.80 mm[Hg] 3274076792) AV peak gradient (test mmHg code = 2030458331) AV valve area (test code 2.28 cm2 = 5681262416) AV mean gradient (test mmHg code = 3297815140) Radiology Study observation (narrative) (test code = 10277-6) SERA (test code = SERA) ?Left?Ventricle: Left ventricle is mildly dilated. Mild basal septal thickening. Normal wall motion. Normal systolic function with a visually estimated EF of 60 - 65%. There is impaired relaxation. ?Tricuspid?Valve: Mild transvalvular regurgitation. Right ventricular systolic pressure is 30-35 mmHg. ?RA pressure is 0-5 mmHg. ?Left?Atrium: Left atrium is moderately dilated. Saline contrast shows no shunt. Left VentricleLeft ventricle is mildly dilated. Mild basal septal thickening. Normal wall motion. Normal systolic function with a visually estimated EF of 60 - 65%. There is impaired relaxation.Right VentricleRight ventricle size is normal. Normal systolic function.Left AtriumLeft atrium is moderately dilated. Saline contrast shows no shunt.Right AtriumRight atrium size is normal.Mitral ValveMitral valve structure is normal. Trace transvalvular regurgitation.Tricusp id ValveTricuspid valve structure is normal. Mild transvalvular regurgitation. Right ventricular systolic pressure is 30-35 mmHg. RA pressure is 0-5 mmHg.Aortic ValveMildly thickened cusps. Mildly calcified cusps.Pulmonic ValveNot well visualized.Ascending AortaAorta is normal in size.PericardiumThe pericardium is normal.Study DetailsStudy quality was adequate. A complete echocardiogram was performed using 2D, color flow Doppler and spectral Doppler. Saline contrast was performed. [facility] [id number] 16:23:40 Test Item Value Reference Range Interpretation Comments FREE T4 (test code = See_Comment [Autom ated message] 8754368529) The system [employer] generated this result transmitted ref erence range: 0.78 - 2 .20 ng/dL:. The ref erence range was not u sed to interpret this result as normal/abnor mal. Lab Interpretation (test Normal code = 76731-8) [facility]anoTHYROID STIMULATING [id number] 01:25:06 Test Item Value Reference Range Interpretation Comments TSH (test code = See_Comment H Biotin has been 8378238733) reported to cau se a negative bias, interpret resul ts relative to pat stefaniant's use of biotin. [Automated mess age] The system [employer] generated this result transmitted ref erence range: 0.45 - 4 .70 mIU/L. The refe rence range was not u sed to interpret this result as normal/abnor mal. Lab Interpretation (test Abnormal code = 65035-4) [facility]anoCB WITH [id number] 00:11:33 Test Item Value Reference Range Interpretation Comments WBC (test code = See_Comment H [Automated 6690-2) message] The sy stem which generated this result transmitted reference range : 4.30 - 11.10 10*3/?L. The reference range was not used to interpret this result as normal/abnormal . RBC (test code = See_Comment L [Automated 789-8) message] The sy stem which generated this result transmitted reference range : 3.93 - 5.25 10*6/?L. The reference range was not used to interpret this result as normal/abnormal . HGB (test code = 12.1 g/dL 11.6-15 718-7) HCT (test code = 36.3 % 35.7-45.2 4544-3) MCV (test code = 98.6 fL 80.6-95.5 H 787-2) MCH (test code = 32.9 pg 25.9-32.8 H 785-6) MCHC (test code = 33.3 g/dL 31.6-35.1 786-4) RDW-SD (test code = 59.9 fL 39-49.9 H 87578-2) RDW-CV (test code = 16.3 % 12-15.5 H 788-0) PLT (test code = See_Comment L [Automated 777-3) message] The sy stem which generated this result transmitted reference range : 166 - 358 10*3/ ?L. The reference r hannah was not used to interpret this result as normal/abnormal . MPV (test code = 10.7 fL 9.5-12.9 08686-6) IPF % (test code = 3.5 % 1.3-7.7 Platelet count 5444582000) measured by fluorescence method. NRBC/100 WBC (test See_Comment [Automat ed code = 3159447244) message] The system which generated this result transmitted reference range : 0.0 - 10.0 /100 WBCs. The refer ence range was not u sed to interpret th is result as normal/abnormal . NRBC x10^3 (test code See_Comment [Auto mated = 0575825682) message] The s ystem which generated this result transmitted reference range : 10*3/?L. The reference range was not used to interpret this result as normal/abnormal . GRAN MAT (NEUT) % 62.8 % (test code = 770-8) IMM GRAN % (test code 0.50 % = 2221227561) LYMPH % (test code = 17.8 % 736-9) MONO % (test code = 11.8 % 5905-5) EOS % (test code = 6.5 % 713-8) BASO % (test code = 0.6 % 706-2) GRAN MAT x10^3(ANC) 8.11 10*3/uL 1.88-7.09 H (test code = 7910817283) IMM GRAN x10^3 (test 0.07 10*3/uL 0-0.06 H code = 0561949077) LYMPH x10^3 (test code 2.30 10*3/uL 1.32-3.29 = 731-0) MONO x10^3 (test code 1.53 10*3/uL 0.33-0.92 H = 742-7) EOS x10^3 (test code = 0.84 10*3/uL 0.03-0.39 H 711-2) BASO x10^3 (test code 0.08 10*3/uL 0.01-0.07 H = 704-7) TOXIC CHANGES (test Present A code = 803-7) Lab Interpretation Abnormal (test code = 54134-3) [facility]anoETHANOL2022-[facility]-08 23:51:11 ALCOHOL<10mg/dL04/03/2022 6:51 PM [facility]<10 Bfvpiwhd26-687 Toxic>100 Depression of PROGRAMMING DIRECTOR>400 Fatalities ReportedUnFoundation [facility] PasoTROPONIN [id number] 23:46:45 Test Item Value Reference Interpretation Comments Range TROPONIN I (test 0.114 ng/mL See_Comment H [Automated code = 5599209758) message] The system which generated this result transmitted reference range : <=0.034. The reference range was not used to interpret this result as normal/abnormal . SERA (test code = Reference (Normal) SERA) Range (defined by the 99th percentile reference limit): <= 0.034 ng/mL Note: Cardiac troponin begins to rise 3-4 hours after the onset of ischemia. Repeat in 4-6 hours if the sample was drawn within 3-4 hours of the onset of the symptom and found normal. Diagnosis of myocardial injury is made with acute changes in cTn concentrations with at least one serial sample above the 99th percentile upper reference limit (URL), taken together with the patient's clinical presentation. Biotin has been reported to cause a negative bias, interpret results relative to patient's use of biotin. Lab Interpretation Abnormal (test code = 72624-4) [facility] PlanoN-TERMINAL [id number] 23:43:46 Test Item Value Reference Range Interpretation Comments NT-proBNP (test code 2600 pg/mL See_Comment H [Autom ated = 6409498611) message] The system which generated this result transmitted reference range : <=125. The reference range was not used to interpret this result as normal/abnormal . SERA (test code = SERA) Biotin has been reported to cause a negative bias, interpret results relative to patient's use of biotin. Lab Interpretation Abnormal (test code = 83742-0) [facility]anoACTIVATED PARTIAL THRMPLAS [id number] 23:35:05 Test Item Value Reference Range Interpretation Comments APTT Patient (test See_Comment [Automat ed code = 3173-2) message] The system which generated this result transmitted reference range : 23 - 38 Seconds . The reference range was not used to interpr et this result as normal/abnormal . SERA (test code = SERA) The [facility] patient population mean normal value for aPTT is 30 seconds. Lab Interpretation Normal (test code = 48694-1) [facility]. METABOLIC PANEL (00888)2022-04-03 23:35:05 Test Item Value Reference Range Interpretation Comments NA (test code = 137 mmol/L 135-145 2836184426) K (test code = 4.4 mmol/L 3.5-5 5513771195) CL (test code = 107 mmol/L 98-108 8908413636) CO2 TOTAL (test code = 28 mmol/L 23-31 0470150159) AGAP (test code = 2-16 4992727430) BUN (test code = 16 mg/dL 7-23 5716993262) GLUCOSE (test code = 131 mg/dL 70-110 H 0272594536) CREATININE (test code = 0.66 mg/dL 0.5-1.04 5254134890) TOTAL BILI (test code = 1.2 mg/dL 0.1-1.1 H 5512001234) CALCIUM (test code = 8.7 mg/dL 8.6-10.6 8715936602) T PROTEIN (test code = 6.1 g/dL 6.3-8.2 L 2858319974) ALBUMIN (test code = 2.4 g/dL 3.5-5 L 1158319563) ALK PHOS (test code = 125 U/L 34-122 H 4200228350) ALTv (test code = 28 U/L 5-35 1742-6) AST(SGOT) (test code = 51 U/L 13-40 H 4516282204) eGFR (test code = mL/min/1.73m2 9854593413) SERA (test code = SERA) Association of Glomerular Filtration Rate (GFR) and Staging of Kidney Disease* + --+ --+ ------+| GFR (mL/min/1.73 m2) ?| With Kidney Damage ?| ?Without Kidney Damage+ --------+ --------+ +| ?>90 ?| ?Stage one ?| ? Normal ?+ ---+ ---+ -------+| ?60-89 ?| ?Stage two ?| ? Decreased GFR ? + --+ --+ ------+| ?30-59 ?| ?Stage three ?| ? Stage three ? + --+ --+ ------+| ?15-29 ?| ?Stage four ? | ? Stage four ?+ ---+ ---+ -------+| ?<15 (or dialysis) ? ?| ?Stage five ? | ? Stage five ?+ ---+ ---+ -------+ *Each stage assumes the associated GFR level has been in effect for at least three months. ?Stages 1 to 5, with or without kidney disease, indicate chronic kidney disease. Notes: Determination of stages one and two (with eGFR >59mL/min/1.73 m2) requires estimation of kidney damage for at least three months as defined by structural or functional abnormalities of the kidney, manifested by either:Pathological abnormalities or Markers of kidney damage (including abnormalities in the composition of the blood or urine or abnormalities in imaging tests). Lab Interpretation Abnormal (test code = 06615-7) [facility] PlanoPROTHROMBIN TIME / [id number] 23:33:02 Test Item Value Reference Range Interpretation Comments PROTIME PATIENT (test See_Comment [Auto mated message] code = 5964-2) The system [employer] generated this result transmitted ref erence range: 12.0 - 1 4.7 Seconds. The re ference range was not u sed to interpret this result as normal/abnor mal. INR (test code = 6301-6) Nor mal INR <1.1; Warfarin Therap eutic range 2.0 to 3. 0 or 2.5 to 3.5, dep ending upon the indica tions. Lab Interpretation (test Normal code = 17306-3) [facility]anoAC Panel 20 + Lactic [id number] 23:21:15 Test Item Value Reference Range Interpretation Comments PH (test code = 2) 7.35-7.45 L PCO2 (test code = See_Comment H [Automate d 2872213367) message] The sy stem which generated this result transmitted reference range : 35 - 45 mmHg. The reference range was not used to interpret this result as normal/abnormal . PO2 (test code = See_Comment [Automated 3030476260) message] The sy stem which generated this result transmitted reference range : 80 - 100 mmHg. The reference range was not used to interpret this result as normal/abnormal . HCO3 (test code = See_Comment [Automate d 1648226928) message] The sy stem which generated this result transmitted reference range : 22 - 26 mEq/L. The reference range was not used to interpret this result as normal/abnormal . BE (test code = See_Comment L [Automated 1233947159) message] The sy stem which generated this result transmitted reference range : -3.0 - 3.0 mEq/ L. The reference r hannah was not used to interpret this result as normal/abnormal . THB (test code = 12.8 g/dL 12-16 6592190464) %O2HB (test code = 93.3 % 94-99 L 6814161315) %COHB ART (test code = 0.8 % 0-1.5 1326064330) %METHB ART (test code = 0.0 % 0.4-1.5 L 8003888287) VOL%O2 ART (test code = 16.9 % 15-23 8309243993) NA (test code = 135 mmol/L 135-145 5149218101) K+ (test code = 4.1 mmol/L 3.5-5 1940264721) AC CA IONZ (test code = 5.00 mg/dL 4.5-5.3 5446794314) GLUCOSE (test code = 132 mg/dL 70-110 H 5763645477) LACTIC ACID (test code 1.33 mmol/L 0.5-2.2 = 6648566913) Lab Interpretation Abnormal (test code = 33538-7) [facility]ABOL[facility] (NA, K, CL, CO2, GLUCOSE, BUN, CREATININE, CA)2021-10-21 09:09:29 Test Item Value Reference Range Interpretation Comments NA (test code = 138 mmol/L 135-145 1169835884) K (test code = 4.2 mmol/L 3.5-5.0 0424584424) CL (test code = 114 mmol/L 98-108 H 8437006976) CO2 TOTAL (test code = 17 mmol/L 23-31 L 7056253090) AGAP (test code = 2-16 9043202974) BUN (test code = 7 mg/dL 7-23 7924798868) GLUCOSE (test code = 138 mg/dL 70-110 H 0128875374) CREATININE (test code = 0.79 mg/dL 0.50-1.04 5549745853) CALCIUM (test code = 8.2 mg/dL 8.6-10.6 L 9686923071) eGFR (test code = mL/min/1.73m2 9624180513) SERA (test code = SERA) Association of Glomerular Filtration Rate (GFR) and Staging of Kidney Disease* + --+ --+ ------+| GFR (mL/min/1.73 m2) ?| With Kidney Damage ?| ?Without Kidney Damage+ --------+ --------+ +| ?>90 ?| ?Stage one ?| ? Normal ?+ ---+ ---+ -------+| ?60-89 ?| ?Stage two ?| ? Decreased GFR ? + --+ --+ ------+| ?30-59 ?| ?Stage three ?| ? Stage three ? + --+ --+ ------+| ?15-29 ?| ?Stage four ? | ? Stage four ?+ ---+ ---+ -------+| ?<15 (or dialysis) ? ?| ?Stage five ? | ? Stage five ?+ ---+ ---+ -------+ *Each stage assumes the associated GFR level has been in effect for at least three months. ?Stages 1 to 5, with or without kidney disease, indicate chronic kidney disease. Notes: Determination of stages one and two (with eGFR >59mL/min/1.73 m2) requires estimation of kidney damage for at least three months as defined by structural or functional abnormalities of the kidney, manifested by either:Pathological abnormalities or Markers of kidney damage (including abnormalities in the composition of the blood or urine or abnormalities in imaging tests). Lab Interpretation Abnormal (test code = 78318-3) [facility], [id number] 09:02:27 Test Item Value Reference Range Interpretation Comments AMMONIA (test code = 1456902764) 60 umol/L 9-33 H Lab Interpretation (test code = Abnormal 12035-5) [facility] METABOLIC PANEL (NA, K, CL, CO2, GLUCOSE, BUN, CREATININE, CA)2021-10-20 11:10:59 Test Item Value Reference Range Interpretation Comments NA (test code = 138 mmol/L 135-145 1702704207) K (test code = 3.8 mmol/L 3.5-5.0 1145849561) CL (test code = 113 mmol/L 98-108 H 8412270701) CO2 TOTAL (test code = 18 mmol/L 23-31 L 9913042702) AGAP (test code = 2-16 4416988837) BUN (test code = 7 mg/dL 7-23 0630984762) GLUCOSE (test code = 140 mg/dL 70-110 H 0869770337) CREATININE (test code = 0.76 mg/dL 0.50-1.04 6817275081) CALCIUM (test code = 8.1 mg/dL 8.6-10.6 L 9129639626) eGFR (test code = mL/min/1.73m2 6974043534) SERA (test code = SERA) Association of Glomerular Filtration Rate (GFR) and Staging of Kidney Disease* + --+ --+ ------+| GFR (mL/min/1.73 m2) ?| With Kidney Damage ?| ?Without Kidney Damage+ --------+ --------+ +| ?>90 ?| ?Stage one ?| ? Normal ?+ ---+ ---+ -------+| ?60-89 ?| ?Stage two ?| ? Decreased GFR ? + --+ --+ ------+| ?30-59 ?| ?Stage three ?| ? Stage three ? + --+ --+ ------+| ?15-29 ?| ?Stage four ? | ? Stage four ?+ ---+ ---+ -------+| ?<15 (or dialysis) ? ?| ?Stage five ? | ? Stage five ?+ ---+ ---+ -------+ *Each stage assumes the associated GFR level has been in effect for at least three months. ?Stages 1 to 5, with or without kidney disease, indicate chronic kidney disease. Notes: Determination of stages one and two (with eGFR >59mL/min/1.73 m2) requires estimation of kidney damage for at least three months as defined by structural or functional abnormalities of the kidney, manifested by either:Pathological abnormalities or Markers of kidney damage (including abnormalities in the composition of the blood or urine or abnormalities in imaging tests). Lab Interpretation Abnormal (test code = 27085-0) [facility] WITH [id number] 10:51:56 Test Item Value Reference Range Interpretation Comments WBC (test code = See_Comment [Automated 6690-2) message] The sy stem which generated this result transmitted reference range : 4.30 - 11.10 10*3/?L. The reference range was not used to interpret this result as normal/abnormal . RBC (test code = See_Comment L [Automated 789-8) message] The sy stem which generated this result transmitted reference range : 3.93 - 5.25 10*6/?L. The reference range was not used to interpret this result as normal/abnormal . HGB (test code = 9.7 g/dL 11.6-15.0 L 718-7) HCT (test code = 28.0 % 35.7-45.2 L 4544-3) MCV (test code = 95.2 fL 80.6-95.5 787-2) MCH (test code = 33.0 pg 25.9-32.8 H 785-6) MCHC (test code = 34.6 g/dL 31.6-35.1 786-4) RDW-SD (test code = 61.0 fL 39.0-49.9 H 60784-1) RDW-CV (test code = 17.5 % 12.0-15.5 H 788-0) PLT (test code = See_Comment L [Automated 777-3) message] The sy stem which generated this result transmitted reference range : 166 - 358 10*3/ ?L. The reference r hannah was not used to interpret this result as normal/abnormal . MPV (test code = 12.1 fL 9.5-12.9 11343-5) NRBC/100 WBC (test See_Comment [Automat ed code = 6021582898) message] The system which generated this result transmitted reference range : 0.0 - 10.0 /100 WBCs. The refer ence range was not u sed to interpret th is result as normal/abnormal . NRBC x10^3 (test code <0.01 See_Comment [Auto mated = 0949423554) message] The s ystem which generated this result transmitted reference range : 10*3/?L. The reference range was not used to interpret this result as normal/abnormal . GRAN MAT (NEUT) % 55.4 % (test code = 770-8) IMM GRAN % (test code 0.70 % = 1846928800) LYMPH % (test code = 23.9 % 736-9) MONO % (test code = 15.4 % 5905-5) EOS % (test code = 4.0 % 713-8) BASO % (test code = 0.6 % 706-2) GRAN MAT x10^3(ANC) 5.27 10*3/uL 1.88-7.09 (test code = 3573653565) IMM GRAN x10^3 (test 0.07 10*3/uL 0.00-0.06 H code = 4309326047) LYMPH x10^3 (test code 2.28 10*3/uL 1.32-3.29 = 731-0) MONO x10^3 (test code 1.47 10*3/uL 0.33-0.92 H = 742-7) EOS x10^3 (test code = 0.38 10*3/uL 0.03-0.39 711-2) BASO x10^3 (test code 0.06 10*3/uL 0.01-0.07 = 704-7) Lab Interpretation Abnormal (test code = 28261-5) [facility], [id number] 10:42:47 Test Item Value Reference Range Interpretation Comments AMMONIA (test code = 6828955449) 116 umol/L 9-33 H Lab Interpretation (test code = Abnormal 02985-0) [facility] 17:54:53 Test Item Value Reference Range Interpretation Comments FOLATE SER (test code = 0058685760) 5.8 ng/mL 3.0-20.0 Lab Interpretation (test code = Normal 23584-7) [facility]IT[facility] B12, [id number] 17:46:36 Test Item Value Reference Range Interpretation Comments VIT B12 (test code = 988 pg/mL 240-930 H 8972028763) SERA (test code = SERA) Biotin has been reported to cause a positive bias, interpret results relative to patient's use of biotin. Lab Interpretation (test Abnormal code = 60093-6) [facility], [id number] 14:09:55 Test Item Value Reference Range Interpretation Comments AMMONIA (test code = 1308756685) 55 umol/L 9-33 H Lab Interpretation (test code = Abnormal 54320-9) [facility]2022-03-26 13:39:33 Test Item Value Reference Range Interpretation Comments PHOSPHORUS (test code = 0709103558) 3.0 mg/dL 2.5-5.0 Lab Interpretation (test code = Normal 76365-5) [facility]YCOSYLATED HEMOGLOBIN (A1C)2021-10-19 11:52:50 Test Item Value Reference Range Interpretation Comments HGB A1C (test code = 4.3 % 4.0-5.7 4548-4) SERA (test code = SERA) Reference RangesNormal: <5.7%Prediabetes: 5.7 - 6.4%Diabetes: > 6.5% Lab Interpretation (test Normal code = 53930-4) [facility]anoMagnesium [id number] 11:52:49 Test Item Value Reference Range Interpretation Comments MAGNESIUM (test code = 8126975869) 2.1 mg/dL 1.7-2.4 Lab Interpretation (test code = Normal 27990-6) [facility] (NA, K, CL, CO2, GLUCOSE, BUN, CREATININE, CA)2021-10-19 11:52:29 Test Item Value Reference Range Interpretation Comments NA (test code = 140 mmol/L 135-145 7358320528) K (test code = 3.0 mmol/L 3.5-5.0 L 6844539881) CL (test code = 113 mmol/L 98-108 H 2340784255) CO2 TOTAL (test code = 18 mmol/L 23-31 L 9416548610) AGAP (test code = 2-16 5502183619) BUN (test code = 7 mg/dL 7-23 7936335822) GLUCOSE (test code = 128 mg/dL 70-110 H 6240796774) CREATININE (test code = 0.80 mg/dL 0.50-1.04 7967443647) CALCIUM (test code = 8.4 mg/dL 8.6-10.6 L 6198152749) eGFR (test code = mL/min/1.73m2 6798342869) SERA (test code = SERA) Association of Glomerular Filtration Rate (GFR) and Staging of Kidney Disease* + --+ --+ ------+| GFR (mL/min/1.73 m2) ?| With Kidney Damage ?| ?Without Kidney Damage+ --------+ --------+ +| ?>90 ?| ?Stage one ?| ? Normal ?+ ---+ ---+ -------+| ?60-89 ?| ?Stage two ?| ? Decreased GFR ? + --+ --+ ------+| ?30-59 ?| ?Stage three ?| ? Stage three ? + --+ --+ ------+| ?15-29 ?| ?Stage four ? | ? Stage four ?+ ---+ ---+ -------+| ?<15 (or dialysis) ? ?| ?Stage five ? | ? Stage five ?+ ---+ ---+ -------+ *Each stage assumes the associated GFR level has been in effect for at least three months. ?Stages 1 to 5, with or without kidney disease, indicate chronic kidney disease. Notes: Determination of stages one and two (with eGFR >59mL/min/1.73 m2) requires estimation of kidney damage for at least three months as defined by structural or functional abnormalities of the kidney, manifested by either:Pathological abnormalities or Markers of kidney damage (including abnormalities in the composition of the blood or urine or abnormalities in imaging tests). Lab Interpretation Abnormal (test code = 32495-0) [facility] with [id number] 10:46:41 Test Item Value Reference Range Interpretation Comments WBC (test code = See_Comment [Automated 1295-2) message] The sy stem which generated this result transmitted reference range : 4.30 - 11.10 10*3/?L. The reference range was not used to interpret this result as normal/abnormal . RBC (test code = See_Comment L [Automated 929-8) message] The sy stem which generated this result transmitted reference range : 3.93 - 5.25 10*6/?L. The reference range was not used to interpret this result as normal/abnormal . HGB (test code = 9.7 g/dL 11.6-15.0 L 718-7) HCT (test code = 27.3 % 35.7-45.2 L 4544-3) MCV (test code = 93.8 fL 80.6-95.5 787-2) MCH (test code = 33.3 pg 25.9-32.8 H 785-6) MCHC (test code = 35.5 g/dL 31.6-35.1 H 786-4) RDW-SD (test code = 58.5 fL 39.0-49.9 H 39530-4) RDW-CV (test code = 17.2 % 12.0-15.5 H 788-0) PLT (test code = See_Comment L [Automated 777-3) message] The sy stem which generated this result transmitted reference range : 166 - 358 10*3/ ?L. The reference r hannah was not used to interpret this result as normal/abnormal . MPV (test code = 12.1 fL 9.5-12.9 74877-4) IPF % (test code = 4.8 % 1.3-7.7 Platelet count 5233604191) measured by fluorescence method. NRBC/100 WBC (test See_Comment [Automat ed code = 2603400105) message] The system which generated this result transmitted reference range : 0.0 - 10.0 /100 WBCs. The refer ence range was not u sed to interpret th is result as normal/abnormal . NRBC x10^3 (test code <0.01 See_Comment [Auto mated = 4851715333) message] The s ystem which generated this result transmitted reference range : 10*3/?L. The reference range was not used to interpret this result as normal/abnormal . GRAN MAT (NEUT) % 52.6 % (test code = 770-8) IMM GRAN % (test code 0.70 % = 4846593470) LYMPH % (test code = 28.8 % 736-9) MONO % (test code = 13.7 % 5905-5) EOS % (test code = 3.7 % 713-8) BASO % (test code = 0.5 % 706-2) GRAN MAT x10^3(ANC) 4.83 10*3/uL 1.88-7.09 (test code = 1616351755) IMM GRAN x10^3 (test 0.06 10*3/uL 0.00-0.06 code = 4127159399) LYMPH x10^3 (test code 2.64 10*3/uL 1.32-3.29 = 731-0) MONO x10^3 (test code 1.26 10*3/uL 0.33-0.92 H = 742-7) EOS x10^3 (test code = 0.34 10*3/uL 0.03-0.39 711-2) BASO x10^3 (test code 0.05 10*3/uL 0.01-0.07 = 704-7) Lab Interpretation Abnormal (test code = 56054-7) [facility]2022-[facility]-25 23:04:57 Test Item Value Reference Range Interpretation Comments MAGNESIUM (test code = 2382445832) 1.5 mg/dL 1.7-2.4 L Lab Interpretation (test code = Abnormal 00502-4) [facility]2022-03-25 23:04:57 Test Item Value Reference Range Interpretation Comments PHOSPHORUS (test code = 5364119517) 2.0 mg/dL 2.5-5.0 L Lab Interpretation (test code = Abnormal 88893-9) [facility], [id number] 21:51:08 Test Item Value Reference Range Interpretation Comments AMMONIA (test code = 2481227741) 147 umol/L 9-33 H Lab Interpretation (test code = Abnormal 30418-9) [facility]anoCOMP. METABOLIC PANEL (23379)2021-10-18 21:50:52 Test Item Value Reference Range Interpretation Comments NA (test code = 136 mmol/L 135-145 1921194967) K (test code = 2.4 mmol/L 3.5-5.0 LL 3544814846) CL (test code = 103 mmol/L 98-108 8282285886) CO2 TOTAL (test code = 18 mmol/L 23-31 L 6651446568) AGAP (test code = 2-16 3084170997) BUN (test code = 7 mg/dL 7-23 6187024121) GLUCOSE (test code = 214 mg/dL 70-110 H 7063897084) CREATININE (test code = 0.89 mg/dL 0.50-1.04 7220180571) TOTAL BILI (test code = 3.8 mg/dL 0.1-1.1 H 3538281337) CALCIUM (test code = 8.6 mg/dL 8.6-10.6 6898867508) T PROTEIN (test code = 8.1 g/dL 6.3-8.2 3576426567) ALBUMIN (test code = 3.3 g/dL 3.5-5.0 L 9678990481) ALK PHOS (test code = 129 U/L 34-122 H 8906696754) ALTv (test code = 44 U/L 5-35 H 1742-6) AST(SGOT) (test code = 105 U/L 13-40 H 4389020851) eGFR (test code = mL/min/1.73m2 1060421280) SERA (test code = SERA) Association of Glomerular Filtration Rate (GFR) and Staging of Kidney Disease* + --+ --+ ------+| GFR (mL/min/1.73 m2) ?| With Kidney Damage ?| ?Without Kidney Damage+ --------+ --------+ +| ?>90 ?| ?Stage one ?| ? Normal ?+ ---+ ---+ -------+| ?60-89 ?| ?Stage two ?| ? Decreased GFR ? + --+ --+ ------+| ?30-59 ?| ?Stage three ?| ? Stage three ? + --+ --+ ------+| ?15-29 ?| ?Stage four ? | ? Stage four ?+ ---+ ---+ -------+| ?<15 (or dialysis) ? ?| ?Stage five ? | ? Stage five ?+ ---+ ---+ -------+ *Each stage assumes the associated GFR level has been in effect for at least three months. ?Stages 1 to 5, with or without kidney disease, indicate chronic kidney disease. Notes: Determination of stages one and two (with eGFR >59mL/min/1.73 m2) requires estimation of kidney damage for at least three months as defined by structural or functional abnormalities of the kidney, manifested by either:Pathological abnormalities or Markers of kidney damage (including abnormalities in the composition of the blood or urine or abnormalities in imaging tests). Lab Interpretation Abnormal (test code = 15824-8) [facility] PlanoPROTHROMBIN TIME / [id number] 21:36:34 Test Item Value Reference Range Interpretation Comments PROTIME PATIENT (test See_Comment H [Auto mated message] code = 5964-2) The system wh ich generated this result transmitted ref erence range: 12.0 - 1 4.7 Seconds. The reference range was not used to int erpret this result as normal/abnormal . INR (test code = 6301-6) Nor mal INR <1.1; Warfarin Therap eutic range 2.0 to 3. 0 or 2.5 to 3.5, dep ending upon the indica tions. Lab Interpretation (test Abnormal code = 08385-9) [facility]anoCB WITH [id number] 21:34:33 Test Item Value Reference Range Interpretation Comments WBC (test code = See_Comment [Automated 6690-2) message] The sy stem which generated this result transmitted reference range : 4.30 - 11.10 10*3/?L. The reference range was not used to interpret this result as normal/abnormal . RBC (test code = See_Comment L [Automated 789-8) message] The sy stem which generated this result transmitted reference range : 3.93 - 5.25 10*6/?L. The reference range was not used to interpret this result as normal/abnormal . HGB (test code = 10.8 g/dL 11.6-15.0 L 718-7) HCT (test code = 30.9 % 35.7-45.2 L 4544-3) MCV (test code = 96.3 fL 80.6-95.5 H 787-2) MCH (test code = 33.6 pg 25.9-32.8 H 785-6) MCHC (test code = 35.0 g/dL 31.6-35.1 786-4) RDW-SD (test code = 62.1 fL 39.0-49.9 H 12883-7) RDW-CV (test code = 17.6 % 12.0-15.5 H 788-0) PLT (test code = See_Comment L [Automated 777-3) message] The sy stem which generated this result transmitted reference range : 166 - 358 10*3/ ?L. The reference r hannah was not used to interpret this result as normal/abnormal . MPV (test code = 12.3 fL 9.5-12.9 61147-0) NRBC/100 WBC (test See_Comment [Automat ed code = 5828785384) message] The system which generated this result transmitted reference range : 0.0 - 10.0 /100 WBCs. The refer ence range was not u sed to interpret th is result as normal/abnormal . NRBC x10^3 (test code <0.01 See_Comment [Auto mated = 7158077719) message] The s ystem which generated this result transmitted reference range : 10*3/?L. The reference range was not used to interpret this result as normal/abnormal . GRAN MAT (NEUT) % 53.9 % (test code = 770-8) IMM GRAN % (test code 0.50 % = 8377805232) LYMPH % (test code = 28.8 % 736-9) MONO % (test code = 13.7 % 5905-5) EOS % (test code = 2.7 % 713-8) BASO % (test code = 0.4 % 706-2) GRAN MAT x10^3(ANC) 4.21 10*3/uL 1.88-7.09 (test code = 0417251075) IMM GRAN x10^3 (test 0.04 10*3/uL 0.00-0.06 code = 4069031899) LYMPH x10^3 (test code 2.25 10*3/uL 1.32-3.29 = 731-0) MONO x10^3 (test code 1.07 10*3/uL 0.33-0.92 H = 742-7) EOS x10^3 (test code = 0.21 10*3/uL 0.03-0.39 711-2) BASO x10^3 (test code 0.03 10*3/uL 0.01-0.07 = 704-7) Lab Interpretation Abnormal (test code = 56596-2) [facility] Notes Date/Time Note Provider Source 2022-03-06 16:35:00-00:00 [id number] [facility] [address] [place] [address] PATIENT NAME: MALVIN MAYER ADMIT DATE: ACCOUNT NO: [id number] ROOM NO: AGE: 66 REPORT TYPE: eECHOCARDIOGRAM REPORT SEX: F ADMITTING PHYSICIAN: ATTENDING PHYSICIAN: Shola Mccall MD *[facility]* [address] [place], [place] [address] Transthoracic Echocardiogram Patient: aMlvin Mayer Study Date: 03/04/2022 BP: Location: [facility] URN: [id number] 012 : 1955 Age: 66 Height: 62 in / 157.5 cm Gender: F Weight: 149 .7 lb / 68 kg BMI/BSA: 27.4 kg/m 2 / 1.69 m 2 *Ordering Physician: * Shola Mccall MD *Interpreting Physician: * Shola Mccall MD *[employer] Project Manager: * Flores Dela Cruz Indications: Dyspnea, Unspecified. Study data: Transthoracic echocardiogram. Proced ure: Transthoracic echocardiography was performed. Image quality wa s adequate. Complete 2D, complete spectral Doppler, and color Doppler . Location: Echo laboratory. Patient status: Outpatient. Study st atus: Routine. Findings Left ventricle: The cavity size is dilated. Wall thickness is normal. Systolic function is normal. The estimated eject ion fraction is 55-60%. Wall motion is normal; there are no regional wal l motion abnormalities. Doppler parameters are consistent with a reversi ble restrictive pattern, indicative of decreased left ventricular diastol ic compliance and/or increased left atrial pressure (grade 3 diastoli c dysfunction). Right ventricle: The cavity size is normal. Syst olic function is PATIENT NAME: MALVIN MAYER [id number] normal. Systolic pressure is increased. Left atrium: The atrium is dilated. Right atrium: The atrium is dilated. Aorta: Aortic root: The aortic root is normal in size. Aortic valve: The valve is trileaflet. The leafl ets are mildly calcified. The findings are consistent with mild stenosis. There is mild to moderate regurgitation. Mitral valve: The valve is structurally normal. There is mild to moderate regurgitation. Tricuspid valve: The valve is structurally ramirez l. There is mild-moderate regurgitation. Pulmonic valve: The valve is structurally normal . There is trivial regurgitation. Pericardium: There is no pericardial effusion. Pulmonary arteries: The main pulmonary artery is dilated. Systemic veins: Inferior vena cava: The vessel is normal in size . Measurements Left ventricle Value Ref CARLITOS, LAX 5.6 cm 3.8 - 5.2 ESD, LAX 3.9 cm 2.2 - 3.5 ESD/bsa, LAX 2.3 cm/m 2 1.3 - 2.1 FS, LAX 31 % 27 - 45 PW, ED 1.0 cm 0.6 - 0.9 IVS/PW, ED 0.95 --------- EF 58 % 54 - 74 IVRT 103 ms --------- LVOT Value Ref Diam, S 2.32 cm --------- Area 4.2 cm 2 --------- Peak amarjit, S 1.3 m/sec --------- Mean amarjit, S 0.91 m/sec --------- VTI, S 30.4 cm --------- Peak grad, S 7 mm Hg --------- Mean grad, S 4 mm Hg --------- SV 128 ml --------- SV/bsa 76 ml/m 2 --------- Ventricular septum Value Ref IVS, ED 1.0 cm 0.6 - 0.9 Right ventricle Value Ref TAPSE, MM 2.7 cm 1.7 - 3.1 Pressure, S 56 mm Hg --------- Left atrium Value Ref Vol/bsa, ES, 1-p A4C 94 ml/m 2 11 - 40 Vol/bsa, ES, A/L 99 ml/m 2 16 - 34 AP dim, ES MM 4.9 cm 2.7 - 3.8 PATIENT NAME: MALVIN MAYER [id number] LA/Ao root ratio, MM 1.53 --------- Right atrium Value Ref Area, ES 21 cm 2 10 - 18 SI dim, ES, A4C 5.9 cm 3.4 - 5.3 SI dim/bsa, ES, A4C 3.5 cm/m 2 1.9 - 3.1 Vol, ES, A/L 62 ml --------- Vol, ES, 1-p A4C 59 ml --------- Vol/bsa, ES, 1-p A4C 35 ml/m 2 9 - 33 Aortic valve Value Ref Leaflet sep, MM 1.87 cm --------- Peak v, S 2.37 m/sec --------- Mean v, S 1.43 m/sec --------- VTI, S 51.6 cm --------- Mean grad, S 9.6 mm Hg --------- Peak grad, S 22.5 mm Hg --------- LVOT/AV, VTI ratio 0.59 --------- DENNIS, VTI 2.48 cm 2 --------- LVOT/AV, Vpeak ratio 0.55 --------- DENNIS, Vmax 2.31 cm 2 --------- AR peak v 4.62 m/sec --------- AR decel 160 cm/s 2 --------- AR decel time 2889 ms --------- AR PHT 838 ms --------- AR peak grad 85 mm Hg --------- Mitral valve Value Ref Peak E 0.93 m/sec --------- Peak A 0.47 m/sec --------- Decel time 203 ms --------- PHT 62 ms --------- Peak grad, D 3.5 mm Hg --------- Peak E/A ratio 2 --------- MVA, PHT 3.6 cm 2 --------- Pulmonic valve Value Ref CA peak v 0.83 m/sec --------- CA peak grad 3 mm Hg --------- Tricuspid valve Value Ref TR peak v 3.39 m/sec <=2.8 Peak RV-RA grad, S 46 mm Hg --------- Aortic root Value Ref Root diam, ED MM 3.17 cm --------- Pulmonary artery Value Ref Pressure, S 51.7 mm Hg --------- Systemic veins Value Ref Estimated CVP 10 mm Hg --------- Pulmonary veins Value Ref PATIENT NAME: MALVIN MAYER [id number] A rev duration 190 ms --------- Conclusions Summary: 1. Left ventricle: The cavity size is dilated. W all thickness is normal. Systolic function is normal. The estimated ejec tion fraction is 55-60%. Wall motion is normal; there are no reg ional wall motion abnormalities. Doppler parameters are consisten t with a reversible restrictive pattern, indicative of decreased le ft ventricular diastolic compliance and/or increased left atri al pressure (grade 3 diastolic dysfunction). 2. Right ventricle: Systolic pressure is increas ed. The RV pressure during systole by Doppler is 56 mm Hg. 3. Left atrium: The atrium is dilated. 4. Right atrium: The atrium is dilated. 5. Aortic valve: The findings are consistent wit h mild stenosis. There is mild to moderate regurgitation. The mean sys tolic gradient is 9.6 mm Hg. The peak systolic gradient is 22.5 mm Hg . The regurgitation pressure half-time is 838 ms. 6. Mitral valve: There is mild to moderate regur gitation. 7. Tricuspid valve: There is mild-moderate regur gitation. Prepared and electronically signed by Shola Mccall MD 03/06/2022 16:35 at 1635 PATIENT NAME: MALVIN MAYER [id number]"
[2023-03-10] MEDS ORDERED: NA CHLORIDE 0.9% 500 ML ONE (17:21)
[2023-03-10 17:25] LABS: Absolute Lymphocytes (CBC) 2.3 K/uL (0.7-4.9); Hematocrit 25.1 % (36.0-45.0); Lymphocytes % 28.9 % (15.3-44.8); MCV 92.6 fL (80-100); MPV 7.3 fL (7.6-11.3); Platelets 191 thou/uL (152-406); RBC Red Blood Cell Count 2.71 M/uL (3.86-4.86)
[2023-03-10 17:30] LABS: Protime INR 1.32
[2023-03-10 17:55] LABS: Albumin 2.7 g/dL (3.4-5.0); Bilirubin Direct 0.2 mg/dL (0-0.2); Bilirubin Indirect, Calculated 0.2 mg/dL (0.2-0.8); Bilirubin Total 0.4 mg/dL (0.2-1.0); Magnesium 1.8 mg/dL (1.6-2.4); Potassium 3.3 mEq/L (3.5-5.1); Protein, Total 6.9 g/dL (6.4-8.2)
[2023-03-10 17:58] LABS: Troponin High Sensitivity 162.1 pg/mL (<58.9)
--- NOTE | 2023-03-10 18:17 | ER ---
Nurse's Notes [facility] Name: Maci Zhao Age: 67 yrs Sex: Female : 1955 Arrival Date: 03/10/2023 Time: 16:33 Bed 6 Private MD: Diagnosis: Subsequent non-ST elevation (NSTEMI) myocardial infarction;Hypotension due to drugs;Bradycardia, unspecified;Hypokalemia;Alcoholic cirrhosis of liver Presentation: 03/10 16:38 Chief complaint: Patient states: she was sent by her PCP for low blood pressure and low ap3 heart rate. it is reported the patients HR was in the 40s and her bp was 95/48. Coronavirus screen: At this time, the client does not indicate any symptoms associated with coronavirus-19. Ebola Screen: No symptoms or risks identified at this time. Initial Sepsis Screen: Does the patient meet any 2 criteria? No. Patient's initial sepsis screen is negative. Does the patient have a suspected source of infection? No. Patient's initial sepsis screen is negative. Risk Assessment: Do you want to hurt yourself or someone else? Patient reports no desire to harm self or others. Onset of symptoms was March 10, 2023. 16:38 Method Of Arrival: Ambulatory ap3 16:38 Acuity: CHIP 3 ap3 Triage Assessment: 16:41 General: Appears in no apparent distress. Behavior is calm, cooperative, appropriate ap3 for age. Pain: Denies pain. Neuro: Reports lightheadedness upon standing. Cardiovascular: Patient's skin is warm and dry. Respiratory: Airway is patent Respiratory effort is even, unlabored, Respiratory pattern is regular, symmetrical. Historical: - Allergies: 16:40 No Known Allergies; ap3 - PMHx: 16:40 Anxiety; Depression; etoh abuse; Hypertension; Cirrhosis of liver; ap3 17:24 traumatic brain injury; me1 - Immunization history:: Client reports having NOT received the Covid vaccine. - Social history:: Smoking status: Patient denies any tobacco usage or history of. Screenin:41 [facility] ED Fall Risk Assessment (Adult) History of falling in the last 3 months, ap3 including since admission Yes- single mechanical fall (1 pt) Confusion or Disorientation No (0 pts) Intoxicated or Sedated No (0 pts) Impaired Gait No (0 pts) Mobility Assist Device Used No (0 pt) Altered Elimination No (0 pt). Abuse screen: Denies threats or abuse. Nutritional screening: No deficits noted. Tuberculosis screening: No symptoms or risk factors identified. Assessment: 17:23 General: Appears comfortable, well groomed, well developed, well nourished, Behavior is me1 calm, cooperative, appropriate for age. Pain: Denies pain. Neuro: Level of Consciousness is awake, alert, obeys commands, Oriented to person, place, time, situation, Appropriate for age. Cardiovascular: Capillary refill < 3 seconds Patient's skin is warm and dry. Respiratory: Airway is patent Respiratory effort is even, unlabored, Respiratory pattern is regular, symmetrical. Vital Signs: 16:38 BP 115 / 54; Pulse 50; Resp 18; Temp 97.7; Pulse Ox 96% ; Weight 70.31 kg; ap3 17:23 BP 115 / 68; Pulse 48; Resp 18; Temp 98.2(O); Pulse Ox 99% on R/A; me1 19:22 BP 149 / 96; Pulse 56; Resp 19 S; Pulse Ox 98% on R/A; kd3 19:44 Temp 98; rv ED Course: 16:35 Patient arrived in ED. rg4 16:36 [facility]C [facility] snw 16:36 Alvaro Souza DO is Attending Physician. snw 16:40 Triage completed. ap3 16:41 Arm band placed on right wrist. ap3 16:46 Heydi Lee, RN is Primary Nurse. ph 17:08 Inserted saline lock: 22 gauge in right antecubital area, using aseptic technique. me1 17:08 Basic Metabolic Panel Sent. me1 17:08 CBC with Diff Sent. me1 17:08 LFT's Sent. me1 17:08 Magnesium Sent. me1 17:08 NT PRO-BNP Sent. me1 17:08 PT-INR Sent. me1 17:08 Troponin HS Sent. me1 17:23 Patient has correct armband on for positive identification. Bed in low position. Call me1 light in reach. Side rails up X 1. Provided Education on: POC. Verbalized understanding. . 17:23 No provider procedures requiring assistance completed. IV. me1 17:40 XRAY Chest (1 view) In Process Unspecified. EDMS 18:15 Vasu Cano is Hospitalizing Provider. snw 18:15 Darion Pierce MD is Hospitalizing Provider. snw 19:21 Terry Betts MD is Hospitalizing Provider. la1 19:44 Patient admitted, IV remains in place. rv Administered Medications: 17:12 Drug: NS 0.9% IV 500 ml Route: IV; Rate: bolus; Site: right antecubital; me1 18:54 Follow up: IV Status: Completed infusion; IV Intake: 500ml me1 19:15 CANCELLED (Duplicate Order): Potassium Chloride PO Liquid 40 mEq PO once rv 19:22 Drug: Aspirin PO Chewable Tablet 324 mg Route: PO; kd3 19:44 Follow up: Response: No adverse reaction rv 19:25 Drug: Potassium Chloride PO 40 mEq Route: PO; kd3 19:44 Follow up: Response: No adverse reaction rv Medication: 17:23 VIS not applicable for this client. me1 Intake: 18:54 IV: 500ml; Total: 500ml. me1 Outcome: 18:17 Decision to Hospitalize by Provider. snw 19:43 Admitted to Tele accompanied by nurse, via stretcher, room 424, with chart, Report rv called to ANTHONY RN 19:43 Condition: good 19:43 Instructed on the need for admit. 19:49 Patient left the ED. rv Signatures: Dispatcher [employer] EDAZ Mady Boucher, HEALTH AND SAFETY SPECIALIST-C HEALTH AND SAFETY SPECIALIST-Csnw Samy Delgado HEALTH AND SAFETY SPECIALIST-C HEALTH AND SAFETY SPECIALIST-Cla1 Heydi Lee, RN RN Galina Carolina rg4 Anahy Cervantes RN RN [id number] Norm Gipson RN RN Gabriela Katz RN RN kd3 Miesha Joshua, RN RN me1
--- NOTE | 2023-03-10 18:17 | RAD REPORT ---
EXAM DESCRIPTION: RADChest Single View03/10/2023 5:39 pm CLINICAL HISTORY: low bp COMPARISON: Chest Single View dated 11/25/2019 TECHNIQUE: Portable AP view of the chest. FINDINGS: Bilateral central and basal predominant floppy opacities. No pneumothorax or effusion. Mod erate cardiomegaly. Mediastinal contours are unremarkable. IMPRESSION: Findings suggestive of mild central edema, could be cardiogenic origin.
--- NOTE | 2023-03-10 18:17 | EDPHYS ---
Physician Documentation [facility] Name: Maci Zhao Age: 67 yrs Sex: Female : 1955 Arrival Date: 03/10/2023 Time: 16:33 Bed 6 Private MD: ED Physician Alvaro Souza HPI: 03/10 16:59 This 67 yrs old Female presents to ER via Ambulatory with complaints of Blood snw Pressure Problem. 16:59 Onset: The symptoms/episode began/occurred gradually. Associated signs and symptoms: snw Pertinent positives: low blood pressure, bradycardia, recurrent confusion since TBI with multiple hemorrhages. The patient has experienced similar episodes in the past. The patient has been recently seen by a physician: the patient's primary care provider, with similar presenting complaints, and was sent to the [facility] Emergency Department for further evaluation. Historical: - Allergies: 16:40 No Known Allergies; ap3 - PMHx: 16:40 Anxiety; Depression; etoh abuse; Hypertension; Cirrhosis of liver; ap3 17:24 traumatic brain injury; me1 - Immunization history:: Client reports having NOT received the Covid vaccine. - Social history:: Smoking status: Patient denies any tobacco usage or history of. ROS: 16:59 Constitutional: Negative for fever, chills, and weight loss, Eyes: Negative for injury, snw pain, redness, and discharge, ENT: Negative for injury, pain, and discharge, Neck: Negative for injury, pain, and swelling, Cardiovascular: Negative for chest pain, palpitations, and edema, Respiratory: Negative for shortness of breath, cough, wheezing, and pleuritic chest pain, Abdomen/GI: Negative for abdominal pain, nausea, vomiting, diarrhea, and constipation, Back: Negative for injury and pain, : Negative for injury, bleeding, discharge, and swelling, MS/Extremity: Negative for injury and deformity, Skin: Negative for injury, rash, and discoloration, Neuro: Negative for headache, weakness, numbness, tingling, and seizure, some recurrent confusion Psych: Negative for depression, anxiety, suicide ideation, homicidal ideation, and hallucinations. Exam: 16:58 Constitutional: This is a well developed, well nourished patient who is awake, alert, snw and in no acute distress. Head/Face: Normocephalic, atraumatic. Eyes: Pupils equal round and reactive to light, extra-ocular motions intact. Lids and lashes normal. Conjunctiva and sclera are non-icteric and not injected. Cornea within normal limits. Periorbital areas with no swelling, redness, or edema. ENT: Nares patent. No nasal discharge, no septal abnormalities noted. Tympanic membranes are normal and external auditory canals are clear. Oropharynx with no redness, swelling, or masses, exudates, or evidence of obstruction, uvula midline. Mucous membranes moist. Neck: Trachea midline, no thyromegaly or masses palpated, and no cervical lymphadenopathy. Supple, full range of motion without nuchal rigidity, or vertebral point tenderness. No Meningismus. Chest/axilla: Normal chest wall appearance and motion. Nontender with no deformity. No lesions are appreciated. 16:58 Back: No spinal tenderness. No costovertebral tenderness. Full range of motion. MS/ Extremity: Pulses equal, no cyanosis. Neurovascular intact. Full, normal range of motion. 16:58 Cardiovascular: Rate: bradycardic, Rhythm: regular, Pulses: no pulse deficits are appreciated, Heart sounds: murmur, Edema: is not appreciated. 16:58 Skin: Appearance: Color: dusky. 16:58 Neuro: Orientation: is normal, Mentation: appropriate for stated age, Gait: not tested. seizure activity, is not displayed by the patient, Abnormal movements: there are no abnormal movements. Vital Signs: 16:38 BP 115 / 54; Pulse 50; Resp 18; Temp 97.7; Pulse Ox 96% ; Weight 70.31 kg; ap3 17:23 BP 115 / 68; Pulse 48; Resp 18; Temp 98.2(O); Pulse Ox 99% on R/A; me1 19:22 BP 149 / 96; Pulse 56; Resp 19 S; Pulse Ox 98% on R/A; kd3 19:44 Temp 98; rv MDM: 16:50 Patient medically screened. snw 18:14 Differential Diagnosis sepsis, flu, beta daniel use, [place]. Data reviewed: vital signs, snw nurses notes. Management of patient was discussed with the following: Hospitalist: Samy Delgado NP. Historians other than the Patient: Daughter/Son: Daughter. Counseling: I had a detailed discussion with the patient and/or guardian regarding: the historical points, exam findings, and any diagnostic results supporting the discharge/admit diagnosis, lab results, radiology results, the need for further work-up and treatment in the hospital. Response to treatment: the patient's symptoms have mildly improved after treatment. 03/10 16:51 Order name: Basic Metabolic Panel; Complete Time: 17:58 snw 03/10 16:51 Order name: CBC with Diff; Complete Time: 17:28 snw 03/10 16:51 Order name: LFT's; Complete Time: 17:58 snw 03/10 16:51 Order name: Magnesium; Complete Time: 17:58 snw 03/10 16:51 Order name: NT PRO-BNP; Complete Time: 17:58 snw 03/10 16:51 Order name: PT-INR; Complete Time: 17:36 snw 03/10 16:51 Order name: Troponin HS; Complete Time: 17:58 snw 03/10 17:13 Order name: Urine W/Microscopic (UAM); Complete Time: 18:35 snw 03/10 18:25 Order name: DD; Complete Time: 18:40 la1 03/10 16:51 Order name: XRAY Chest (1 view); Complete Time: 18:18 snw 03/10 18:40 Order name: Chest For PE Angio CT la1 03/10 19:45 Order name: CT; Complete Time: 19:47 EDMS 03/10 16:51 Order name: EKG; Complete Time: 16:52 snw 03/10 16:51 Order name: Cardiac monitoring; Complete Time: 17:08 snw 03/10 16:51 Order name: EKG - Nurse/Tech; Complete Time: 17:22 snw 03/10 16:51 Order name: IV Saline Lock; Complete Time: 17:08 snw 03/10 16:51 Order name: Labs collected and sent; Complete Time: 17:08 snw 03/10 16:51 Order name: O2 Per Protocol; Complete Time: 17:08 snw 03/10 16:51 Order name: O2 Sat Monitoring; Complete Time: 17:08 snw EC:20 Rate is 48 beats/min. Rhythm is regular. QRS [place] is Normal. OR interval is normal. QRS snw interval is normal. Clinical impression: Sinus bradycardia. Administered Medications: 17:12 Drug: NS 0.9% IV 500 ml Route: IV; Rate: bolus; Site: right antecubital; me1 18:54 Follow up: IV Status: Completed infusion; IV Intake: 500ml me1 19:15 CANCELLED (Duplicate Order): Potassium Chloride PO Liquid 40 mEq PO once rv 19:22 Drug: Aspirin PO Chewable Tablet 324 mg Route: PO; kd3 19:44 Follow up: Response: No adverse reaction rv 19:25 Drug: Potassium Chloride PO 40 mEq Route: PO; kd3 19:44 Follow up: Response: No adverse reaction rv Disposition: 21:13 Co-signature as Attending Physician, Alvaro Souza DO I was immediately available on-site ms3 in the Emergency Department for consultation in the care of the patient. Disposition Summary: 03/10/23 18:17 Hospitalization Ordered Hospitalization Status: Inpatient Admission snw [facility] snw Condition: Stable snw Problem: an acute exacerbation snw Symptoms: have improved snw Bed/Room Type: Standard snw Provider: Terry Betts(03/10/23 19:21) la1 Room Assignment: 424(03/10/23 19:32) eb1 Diagnosis - Subsequent non-ST elevation (NSTEMI) myocardial infarction snw - Hypotension due to drugs snw - Bradycardia, unspecified snw - Hypokalemia snw - Alcoholic cirrhosis of liver snw Forms: - Medication Reconciliation Form snw - SBAR form snw - Leadership Thank You Letter snw Signatures: Dispatcher [employer] EDMady Serrato FNP-C [employer]IER-Csnw Samy Delgado FNP-Abdirashid [employer]-Cla1 Anahy Cervantes RN RN ap3 Marci Navarro RN RN eb1 Alvaro Souza DO DO ms3 Gabriela Heart RN RN kd3 Miesha Joshua RN RN me1 Norm Gipson RN rv Corrections: (The following items were deleted from the chart) 19:15 18:14 Potassium Chloride PO Liquid 40 mEq PO once ordered. snw rv 19:21 18:17 Darion Pierce snw la1 19:32 18:17 snw eb1
[2023-03-10 18:31] LABS: Specific Gravity < 1.005 (1.005-1.030); Urine Bacteria None Seen /HPF (<20); Urine Bilirubin NEGATIVE (Negative); Urine Blood Trace (Negative); Urine Clarity Clear (Clear); Urine Color Yellow (Yellow); Urine Glucose NEGATIVE (Negative); Urine Mucus Slight /HPF (None Seen); Urine Protein NEGATIVE (Negative); Urine RBC <5 /HPF (None Seen); Urine Urobilinogen Normal (Normal); Urine pH 6.5 (5.0-7.0)
--- NOTE | 2023-03-10 18:40 | P.HP ---
Certification for Inpatient Patient admitted to: Inpatient With expected LOS: >2 Midnights Patient will require the following post-hospital care: None Practitioner: I am a practitioner with admitting privileges, knowledge of patient current condition, hospital course, and medical plan of care. Services: Services provided to patient in accordance with Admission requirements found in Title 42 Section 412.3 of the Code of Federal Regulations Patient History Date of Service: 03/10/23 Reason for admission: NSTEMI, bradycardia History of Present Illness: 67-year-old female with history of cirrhosis of liver, TBI, presents to the ER with chief complaint of low blood pressure, low heart rate at her primary care doctor's office. She denies any specific complaints currently. In November of this year she had a fall resulting in TBI/brain bleed requiring 1 month admission at [facility]. She still deals with confusion since the injury. She is evaluated in the emergency department today her labs are significant for hemoglobin 8.0 hematocrit 25.1, patient, both deny any melena, hematemesis, chest potassium 3.3 troponin 162.1 BNP 333 chest x-ray unremarkable EKG sinus bradycardia without STEMI criteria. Patient does take carvedilol 6.25 mg p.o. twice daily as well as hydralazine which she has been taking as well. Family reports her heart rate has been between 45 and 55 she was discharged to the hospital few months ago. She will be admitted for NSTEMI. She was given aspirin in ED, holding off on therapeutic anticoagulation given recent TBI, brain bleed. Allergies No Known Drug Allergies Allergy (Verified 11/26/19 01:59) Unknown Home Medications: Escitalopram [Lexapro*] 20 mg PO DAILY 11/26/19 Losartan Potassium [Cozaar] 25 mg PO DAILY 11/26/19 Spironolactone [Aldactone] 25 mg PO DAILY #30 tablet 11/26/19 atenoloL [Tenormin] 12.5 mg PO DAILY 30 Days #30 tab 11/26/19 - Past Medical/Surgical History Diabetic: No -: Anxiety disorder -: Hypertension -: Alcohol abuse -: tonsillectomy -: right ankle sx Psychosocial/ Personal History: Patient lives at home with family - Family History Father -: Liver disease - Social History Smoking Status: Never smoker Alcohol use: Yes CD- Drugs: No Place of Residence: Home Review of Systems 10-point ROS is otherwise unremarkable Respiratory: SOB with Excertion Physical Examination - Physical Exam General: Alert, In no apparent distress, Oriented x3 HEENT: Atraumatic, PERRLA, Mucous membr. moist/pink, EOMI, Sclerae nonicteric Neck: Supple, 2+ carotid pulse no bruit, No LAD, Without JVD or thyroid abnormality Respiratory: Clear to auscultation bilaterally, Normal air movement Cardiovascular: Regular rate/rhythm, Normal S1 S2 Gastrointestinal: Normal bowel sounds, No tenderness Musculoskeletal: No tenderness Integumentary: No rashes Neurological: Normal speech, Normal strength at 5/5 x4 extr, Normal tone, Normal affect - Studies Laboratory Data (last 24 hrs) 03/10/23 03/10/23 03/10/23 17:05 17:05 17:05 WBC 7.90 Hgb 8.0 L Hct 25.1 L Plt Count 191 PT 14.5 H INR 1.32 Sodium 139 Potassium 3.3 L BUN 13 Creatinine 0.81 Glucose 99 Magnesium 1.8 Total Bilirubin 0.4 AST 36 ALT 35 Alkaline Phosphatase 132 H Assessment and Plan - Plan Assessment: NSTEMI Sinus bradycardia hypokalemia Cirrhosis of liver History of TBI Plan: NSTEMI Patient denies chest pain does report some dyspnea on exertion we will obtain D- dimer to rule help rule out PE. Trend troponins, monitor on telemetry, given aspirin in ED holding off on therapeutic anticoagulation given recent TBI/brain bleed. Cardiology consult, echocardiogram ordered. Could be due to demand ischemia with bradycardia, hypotension, hold carvedilol, hydralazine at this time. Denies chest pain. Sinus bradycardia Hold carvedilol, monitor on telemetry. Asymptomatic at this time. hypokalemia Replaced in ED, protocol in place Cirrhosis of liver Stable, labs within normal limits, quit drinking 3 to 4 months ago. History of TBI Noted, baseline confusion. Family helps care for her at home. DVT PPX:Lovenox Code status:Full Discharge Plan: Home Plan to discharge in: 24 Hours - Advance Directives Does patient have a Living Will: No Does patient have a Durable POA for Healthcare: No - Code Status/Comfort Care Code Status Assessed: Yes (Full code) Critical Care: No Time Spent Managing Pts Care (In Minutes): 55
[2023-03-10] MEDS ORDERED: ASPIRIN 81 MG CHEWABLE TABLET ONE (19:08)
[2023-03-10] MEDS ORDERED: POTASSIUM CL SA 10 MEQ TAB PO ONE (19:26)
--- NOTE | 2023-03-10 19:44 | RAD REPORT ---
EXAM DESCRIPTION: CT - Chest For Pe Angio - 03/10/2023 7:03 pm CLINICAL HISTORY: elevated trop, elevated DD, Dyspnea on exertion COMPARISON: Chest Single View dated 03/10/2023; Chest Abdomen Pelvis W Cont dated 11/26/2019 TECHNIQUE: Thin axial CT images of the chest were obtained following administration of 95 mL Isovue 370 IV contrast. Multiplanar reconstructions, and maximum intensity projection reconstructions were g enerated and reviewed. Exam utilizes a protocol for optimal evaluation of pulmonary arterial tree. All CT scans are performed using dose optimization technique as appropriate and may include automated exposure control or mA/KV adjustment according to patient size. FINDINGS: Motion artifact somewhat limits evaluation. Pulmonary arteries are normal. No emboli or other suspicious finding. No acute or significant aorta f indings. Central predominant bilateral geographic ground-glass opacities. Mild central interstitial thickening . No pleural thickening or pleural effusion. No pneumothorax. Moderate to marked cardiomegaly No abnormal mediastinal or hilar masses or lymphadenopathy seen. No c hest wall mass or abnormal axilliary lymphadenopathy. Healed bilateral rib fractures. Upper abdominal varicosities again seen. Nonspecific mild body wall edema most pronounced along the u pper anterior chest. IMPRESSION: No evidence of acute central pulmonary emboli. Cardiomegaly. Central predominant geographic ground-glass opacities with mild central interstitial th ickening, findings which suggest mild pulmonary edema.
[2023-03-10] MEDS ORDERED: ONDANSETRON 4 MG/2 ML VIAL IV PRN (20:11)
[2023-03-10 21:26] VITALS: BMI 26.4
[2023-03-10] MEDS: NA CHLORIDE 0.9% 1,000 ML IV SCH (21:33)
[2023-03-10] MEDS ORDERED: ALBUTEROL INHALER 60 PUFF/8 GM IH PRN (23:43)
[2023-03-10] MEDS: LACTULOSE 20 GM/30 ML UCUP PO SCH (23:48)
[2023-03-11] MEDS: PANTOPRAZOLE 40MG TABLET PO SCH (05:39)
[2023-03-11 07:32] LABS: Absolute Lymphocytes (CBC) 2.1 K/uL (0.7-4.9); Hematocrit 26.4 % (36.0-45.0); MCV 91.5 fL (80-100); MPV 7.4 fL (7.6-11.3); Platelets 172 thou/uL (152-406); RBC Red Blood Cell Count 2.89 M/uL (3.86-4.86)
[2023-03-11 07:56] LABS: Albumin 2.6 g/dL (3.4-5.0); Bilirubin Total 0.4 mg/dL (0.2-1.0); Ferritin 9.5 ng/mL (8-388); Magnesium 1.4 mg/dL (1.6-2.4); Potassium 3.1 mEq/L (3.5-5.1); Protein, Total 6.7 g/dL (6.4-8.2)
[2023-03-11 07:58] LABS: Thyroid Stimulating Hormone 10.3 uIU/mL (0.358-3.740)
[2023-03-11 08:00] LABS: Troponin High Sensitivity 182.3 pg/mL (<58.9)
[2023-03-11] MEDS ORDERED: PNEUMOCOCCAL VACCINE 0.5 ML IMVAC ONE (08:00)
[2023-03-11] MEDS: SPIRONOLACTONE 25 MG TABLET PO SCH (08:35)
[2023-03-11] MEDS: ESCITALOPRAM 20 MG TAB PO SCH (08:35)
[2023-03-11] MEDS: LACTULOSE 20 GM/30 ML UCUP PO SCH ×3 (08:35→20:37)
[2023-03-11] MEDS: FOLIC ACID 1 MG TABLET PO SCH (08:36)
[2023-03-11] MEDS: NA CHLORIDE 0.9% 1,000 ML IV SCH (08:38)
[2023-03-11] MEDS ORDERED: FUROSEMIDE 40 MG TABLET PO SCH (09:00)
[2023-03-11] MEDS ORDERED: ASPIRIN 81 MG CHEWABLE TABLET PO SCH (09:00)
[2023-03-11] MEDS ORDERED: Rifaximin 550 MG Tab PO SCH (09:00)
[2023-03-11] MEDS ORDERED: ENOXAPARIN 40 MG/0.4 ML SQ SCH (09:00)
[2023-03-11] MEDS ORDERED: ASPIRIN EC 81 MG TAB PO SCH (09:00)
[2023-03-11] MEDS: FUROSEMIDE 20 MG/ 2ML VIAL IV SCH (16:58)
--- NOTE | 2023-03-11 17:33 | P.PN ---
Subjective Date of Service: 03/11/23 Chief Complaint: NSTEMI, bradycardia No acute events since admission. She reports lower extremity edema and mild orthopnea. She denies any chest pain or shortness of breath. Review of Systems 10-point ROS is otherwise unremarkable Cardiovascular: Orthopnea, Edema Physical Examination - Vital Signs Temperature: 97.6 F Blood Pressure: 165/85 Pulse: 58 Respirations: 18 Pulse Ox (%): 95 - Physical Exam General: Alert, In no apparent distress, Oriented x3 HEENT: Atraumatic, Mucous membr. moist/pink, Sclerae nonicteric Neck: JVD distended Respiratory: Clear to auscultation bilaterally, Normal air movement Cardiovascular: Regular rate/rhythm, Normal S1 S2, No gallops, No rubs, No murmurs, Edema (trace BLE) Gastrointestinal: Normal bowel sounds, Non-distended, No tenderness, No rebound, No guarding, Distended (minimal) Musculoskeletal: No clubbing Integumentary: No rashes Neurological: Normal speech, Normal affect - Studies Laboratory Data (last 24 hrs) 03/10/23 03/10/23 03/10/23 17:05 17:05 17:05 WBC 7.90 Hgb 8.0 L Hct 25.1 L Plt Count 191 PT 14.5 H INR 1.32 Sodium 139 Potassium 3.3 L BUN 13 Creatinine 0.81 Glucose 99 Magnesium 1.8 Total Bilirubin 0.4 AST 36 ALT 35 Alkaline Phosphatase 132 H Assessment And Plan - Plan # Hypervolemia likely due to Acute Decompensated Liver Disease +/- Congestive Heart Failure # Likely Demand Ischemia (Type II Non-ST Segment Elevation Myocardial Infarction) # Alcoholic Cirrhosis (MELD score = 10) - Evaluation thus far: - EKG: without STEMI criteria, trend - Serial troponin: 162.1 -> 170.5 -> 182.3 - Ordered transthoracic echocardiogram - Chest x-ray = "findings suggestive of mild central edema, could be cardiogenic origin." - CT chest angiogram = "no evidence of acute central pulmonary emboli. Cardiomegaly. Central predominant geographic ground-glass opacities with mild central interstitial thickening, findings which suggest mild pulmonary edema" - Management plan: - Consult Cardiology - recommendations appreciated - Continue furosemide, lactulose, and rifaximin # Subclinical Hypothyroidism - TSH 10.3, Free T4 0.95 - Follow-up with your PCP # Sinus Bradycardia - Likely due to carvedilol, will hold # Hypokalemia and Hypomagnesemia - Replace electrolytes as needed # History of Traumatic Brain Injury - At baseline Terry Betts M.D.
--- NOTE | 2023-03-11 18:28 | EKG ---
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
--- NOTE | 2023-03-11 20:07 | RAD REPORT ---
EXAM DESCRIPTION: US - Extrem Venous W Compress Dmitri - 03/11/2023 7:52 pm CLINICAL HISTORY: elevated ddimer Bilateral leg edema and swelling. COMPARISON: <Comparisons> TECHNIQUE: Real-time sonographic interrogation of the left and right lower extremity deep venous sys tems was performed. FINDINGS: Normal compressibility, flow augmentation, phasic flow and spontaneous flow is identified in both the left and right lower extremity deep venous systems. IMPRESSION: No sonographic evidence of left or right lower extremity deep venous thrombosis.
[2023-03-11] MEDS ORDERED: ACETAMINOPHEN 325 MG TABLET PO PRN (20:09)
[2023-03-11 23:07] VITALS: O2SAT 97
[2023-03-12] MEDS: PANTOPRAZOLE 40MG TABLET PO SCH (06:21)
[2023-03-12 06:40] LABS: Absolute Lymphocytes (CBC) 2.6 K/uL (0.7-4.9); Hematocrit 25.2 % (36.0-45.0); Lymphocytes % 34.6 % (15.3-44.8); MCV 90.2 fL (80-100); MPV 7.3 fL (7.6-11.3); Platelets 180 thou/uL (152-406)
[2023-03-12 06:57] LABS: Albumin 2.5 g/dL (3.4-5.0); Bilirubin Total 0.4 mg/dL (0.2-1.0); Magnesium 1.5 mg/dL (1.6-2.4); Potassium 3.2 mEq/L (3.5-5.1); Protein, Total 6.5 g/dL (6.4-8.2)
--- NOTE | 2023-03-12 07:07 | ECHO ---
HEIGHT: 5 ft 2 in WEIGHT: 144 lb 11.2 oz DATE OF STUDY: 03/11/[address]: Samy Delgado NP 2-DIMENSIONAL: YES M.MODE: YES DOPPLER: YES COLOR FLOW: YES TDS: PORTABLE: YES DEFINITY: BUBBLE STUDY: DIAGNOSIS: NON ST ELEVATION MYOCARDIAL INFARCTION CARDIAC HISTORY: CATHERIZATION: NO SURGERY: NO PROSTHETIC VALVE: NO PACEMAKER: NO MEASUREMENTS (cm) DIASTOLIC (NORMALS) SYSTOLIC (NORMALS) IVSd 1.1 (0.6-1.2) LA Diam 4.0 (1.9-4.0) LVEF 69% LVIDd 4.9 (3.5-5.7) LVIDs 3.0 (2.0-3.5) %FS 39% LVPWd 1.1 (0.6-1.2) Ao Diam 2.5 (2.0-3.7) 2 DIMENSIONAL ASSESSMENT: RIGHT ATRIUM: NORMAL LEFT ATRIUM: ENLARGED RIGHT VENTRICLE: NORMAL LEFT VENTRICLE: NORMAL TRICUSPID VALVE: MILD TRICUSPID REGURGITATION MITRAL VALVE: MILD MITRAL REGURGITATION PULMONIC VALVE: NORMAL AORTIC VALVE: MILD AORTIC INSUFFICIENCY PERICARDIAL EFFUSION: NONE AORTIC ROOT: NORMAL LEFT VENTRICULAR WALL MOTION: NORMAL DOPPLER/COLOR FLOW: MILD MITRAL REGURGITATION, AORTIC INSUFFICIENCY, TRICUSPID REGURGITAITON COMMENTS: 1. NORMAL LEFT VENTRICULAR EJECTION FRACTION 60-65% WITH NORMAL WALL MOTION 2. DIASTOLIC DYSFUNCTION 3. LEFT ATRIAL ENLARGEMENT 4. MILD MITRAL REGURGITATION, TRICUSPID REGURGITATION, AORTIC INSUFFICIENCY TECHNOLOGIST: ZEKE TAYLOR
[2023-03-12] MEDS ORDERED: POTASSIUM CL SA 10 MEQ TAB PO ONE (07:30)
[2023-03-12] MEDS ORDERED: Magnesium Sulfate 2gm IVPB 2 G/50 ML BAG IV ONE (07:30)
[2023-03-12] MEDS ORDERED: REGADENOSON 0.4 MG/5 ML SYR IV ONE (08:13)
[2023-03-12] MEDS: LACTULOSE 20 GM/30 ML UCUP PO SCH ×2 (09:00→12:19)
[2023-03-12] MEDS: SPIRONOLACTONE 25 MG TABLET PO SCH (09:00)
[2023-03-12] MEDS: FUROSEMIDE 20 MG/ 2ML VIAL IV SCH (09:00)
[2023-03-12] MEDS: ESCITALOPRAM 20 MG TAB PO SCH (09:00)
[2023-03-12] MEDS: FOLIC ACID 1 MG TABLET PO SCH (09:00)
--- NOTE | 2023-03-12 11:23 | RAD REPORT ---
EXAM DESCRIPTION: NM - Rest Stress Cardiac Imaging - 03/12/2023 11:00 am CLINICAL HISTORY: elevated troponin COMPARISON: No comparisons TECHNIQUE: The patient was administered approximately 10.9 mCi of Tc 99m Sestamibi prior to resting SPECT imaging of the heart. The patient was then administered approximately 30.6 mCi of Tc 99m Sestam ibi following exercise or pharmacologic stress. Multiplanar SPECT images were reviewed. FINDINGS: No stress induced ischemic defect is seen to suggest stress induced ischemia. Small fixed defect is seen fixed defect along the mid segment of the anterior wall, near the junction with the se ptum, suggesting a remote infarct. . The end diastolic volume is 157 ml, the end systolic volume is 77 ml, and the ejection fraction is 51 %. IMPRESSION: No evidence of stress induced myocardial ischemia. Small fixed defect of the mid segment anterior wall near the junction with the septum, suggesting rem ote infarct. Left ventricular ejection fraction: 51%
[2023-03-12 12:13] VITALS: BP 175/89; TEMP 97.9
--- NOTE | 2023-03-12 14:06 | TREADPHA ---
DX: ELEVATED TROPONIN Date of Study: 03/12/2023 Ht: 5' 2 " Wt: 144 lb 11.2 oz Consulting Physician: STEVE MEDICATIONS: TYLENOL, LEXAPRO, FOLIC ACID, LASIX, CEPHULAC, ZOFRAN, PROTONIX, XIFAXAN, ALDACTONE HISTORY: PHYSICIAL EXAMINATION: RESTING B.P.: 171/79 RESTING H.R.: 54 RESTING EKG: NORMAL SINUS RHYTHM, WITHIN NORMAL LIMITS PROTOCOL: PHARMACOLOGIC EXERCISE TIME: 3:3 B.P. AT PEAK STRESS: 136/64 IMPRESSION: LEXISCAN INJECTED. CARDIOLITE INJECTED (SEE NUCLEAR MEDICINE REPORT). NO COMPLAINTS OF CHEST PAIN OR SHORTNESS OF BREATH. COMPLAINTS OF STOMACH PAIN. NO VENTRICULAR TACHYCARDIA/ SUPRAVENTRICULAR TACHYCARDIA OR ARRHYTHMIAS NOTED. NO ELECTROCARDIOGRAM CHANGES WITH LEXISCAN.
--- NOTE | 2023-03-12 14:45 | P.DS ---
Admission Date: 03/10/23 Discharge Date: 03/12/23 Disposition: ROUTINE DISCHARGE Discharge Condition: GOOD Reason for Admission: NSTEMI, bradycardia Consultations: 1. Cardiology Hospital Course: DIAGNOSES: # Pulmonary Edema likely due to Acute Decompensated Liver Disease +/- Acute Decompensated Diastolic Congestive Heart Failure # Likely Demand Ischemia (Type II Non-ST Segment Elevation Myocardial Infarction) due to above # Sinus Bradycardia secondary to Beta-Sharath - resolved # Alcoholic Cirrhosis (MELD score = 10) # Subclinical Hypothyroidism # Hypertension # Hypokalemia and Hypomagnesemia # History of Traumatic Brain Injury with Intracranial Bleed HOSPITAL COURSE: Ms. Raysa Zhao is a pleasant 67 year old female with a past medical history significant for alcoholic cirrhosis (MELD 10), hypertension, and recent traumatic brain injury with intracranial bleed who was admitted to the [facility] on 03/10/2023 for bradycardia and elevated troponin. She was admitted to the Medicine service. Upon further evaluation, her EKG revealed sinus bradycardia, without STEMI criteria. Her troponin trend was 162.1 -> 170.5 -> 182.3. Her chest x-ray revealed, "findings suggestive of mild central edema, could be cardiogenic origin." Her CT chest angiogram revealed, "no evidence of acute central pulmonary emboli. Cardiomegaly. Central predominant geographic ground-glass opacities with mild central interstitial thickening, findings which suggest mild pulmonary edema." Her transthoracic echocardiogram revealed, "1. normal left ventricular ejection fraction 60-65% with normal wall motion 2. diastolic dysfunction 3. left atrial enlargement 4. mild mitral regurgitation, tricuspid regurgitation, aortic insufficiency." Cardiology was consulted and she was evaluated by Dr. Layton. He recommended a nuclear stress test which revealed, "no evidence of stress induced myocardial ischemia. Small fixed defect of the mid segment anterior wall near the junction with the septum, suggesting remote infarct." She was treated with IV diuretics and, over the course of her hospitalization, her symptoms improved significantly. From a cardiac standpoint, Dr. Layton has cleared her for discharge with outpatient follow-up. Incidentally, she was found to have persistent hypokalemia and hypomagnesemia. She was given instructions to take 5-days of potassium (KCl 10 mEq daily) and magnesium (MagOx 400 mg daily) replacement. She and her family members were advised to have her potassium and magnesium levels rechecked at her next [facility]. They verbalized understanding and agreed to discuss this with Dr. Pillai. On 03/12/2023, she was seen on rounds and deemed medically stable for discharge. She was discharged with instructions to schedule follow-up appointments with her PCP (Dr. Pillai), with Gastroenterology (Dr. Morrison), and with Cardiology (Dr. Layton). She was provided prescriptions for potassium chloride, lactulose, kristen nolactone, furosemide, and rifaximin. She and her family members were given the opportunity to ask questions and reported no further questions. Furthermore, all questions were answered to the best of my ability. A copy of this discharge summary will be sent to the above providers to facilitate continuity of care. Today, I personally spent 35 minutes on her case, of which greater than 50% of the time was spent in patient education, counseling, and coordination of care as described above. - Physical Exam General: Alert, In no apparent distress, Oriented x3 HEENT: Atraumatic, Mucous membr. moist/pink, Sclerae nonicteric Neck: JVD not distended Respiratory: Clear to auscultation bilaterally, Normal air movement Cardiovascular: Regular rate/rhythm, No murmurs, No edema Gastrointestinal: Normal bowel sounds, Non-distended, No tenderness Musculoskeletal: No clubbing Integumentary: No rashes Neurological: Normal speech, Normal affect Vital Signs/Physical Exam: Temp Pulse Resp BP Pulse Ox 97.9 F 53 16 175/89 H 98 03/12/23 12:00 03/12/23 12:00 03/12/23 12:00 03/12/23 12:00 03/12/23 12:00 Laboratory Data at Discharge: WBC 7.40 thou/uL (4.3-10.9) 03/12/23 06:28 Hgb 8.5 g/dL (12.0-15.0) L 03/12/23 06:28 Hct 25.2 % (36.0-45.0) L 03/12/23 06:28 Plt Count 180 thou/uL (152-406) 03/12/23 06:28 PT 14.5 SECONDS (9.5-12.5) H 03/10/23 17:05 INR 1.32 03/10/23 17:05 Sodium 138 mEq/L (136-145) 03/12/23 06:28 Potassium 3.2 mEq/L (3.5-5.1) L 03/12/23 06:28 BUN 13 mg/dL (7-18) 03/12/23 06:28 Creatinine 0.72 mg/dL (0.55-1.02) 03/12/23 06:28 Glucose 106 mg/dL (74-106) 03/12/23 06:28 Magnesium 1.5 mg/dL (1.6-2.4) L 03/12/23 06:28 Total Bilirubin 0.4 mg/dL (0.2-1.0) 03/12/23 06:28 AST 34 U/L (15-37) 03/12/23 06:28 ALT 30 U/L (13-56) 03/12/23 06:28 Alkaline Phosphatase 115 U/L (45-117) 03/12/23 06:28 Triglycerides 47 mg/dL (<150) 03/11/23 07:16 Cholesterol 89 mg/dL (<200) 03/11/23 07:16 HDL Cholesterol 38 mg/dL (40-60) L 03/11/23 07:16 Cholesterol/HDL Ratio 2.34 03/11/23 07:16 Home Medications: Escitalopram [Lexapro*] 20 mg PO DAILY 11/26/19 Albuterol Sulfate [Proair Digihaler] 2 puff IH PRN PRN 03/10/23 Amlodipine [Norvasc*] 10 mg PO DAILY 03/10/23 Folic Acid 1 mg PO DAILY 03/10/23 Omeprazole 1 tab PO DAILY 03/10/23 Furosemide 20 mg PO DAILY #30 tab 03/12/23 Lactulose 15 ml PO TID #1350 ml 03/12/23 Magnesium Oxide [Mag-Oxide] 400 mg PO DAILY 5 Days #5 03/12/23 Potassium Chloride 10 meq PO DAILY 5 Days #5 tab 03/12/23 Rifaximin [Xifaxan] 550 mg PO BID #60 tab 03/12/23 Spironolactone [Aldactone] 25 mg PO DAILY #30 tablet 03/12/23 New Medications: Spironolactone [Aldactone] 25 mg PO DAILY #30 tablet Furosemide 20 mg PO DAILY #30 tab Lactulose 15 ml PO TID #1350 ml Magnesium Oxide [Mag-Oxide] 400 mg PO DAILY 5 Days #5 Potassium Chloride 10 meq PO DAILY 5 Days #5 tab Rifaximin [Xifaxan] 550 mg PO BID #60 tab Physician Discharge Instructions: 1. Please call and schedule a follow-up appointment with your PCP (Dr. Pillai) in 3-5 days - As we discussed, you were given 5 days of potassium and magnesium supplementation. Please have Dr. Pillai repeat your potassium and magnesium levels at your next appointment. - Your bloodwork showed anemia. Please discuss further evaluation, including a colonoscopy, with your PCP - Your thyroid bloodwork was slightly abnormal. Please repeat thyroid bloodwork at your next appointment 2. Please call and schedule a follow-up appointment with Hepatology (Dr. Morrison) in 3-5 days 3. Please call and schedule a follow-up appointment with Cardiology (Dr. Layton) in 3-5 days - Please stop taking your carvedilol - If you have any questions or concerns regarding your hospital stay, please call [phone] Diet: AHA Activity: Ad sami Followup: Endy Pillai MD [ACTIVE - CAN ADMIT] - Bk Layton MD [ACTIVE - CAN ADMIT] - Gab Morrison MD [ASSOCIATE-ACTIVE - CAN ADMIT] - Time spent managing pt's care (in minutes): 35
--- NOTE | 2023-03-12 20:18 | PN ---
Date of Progress Note: 03/12/2023 Subjective: Seen by bedside. Review of Systems: No chest pain, shortness of breath, orthopnea, cough. No nausea, vomiting, diarrhea. All other syst ems reviewed were negative. Physical Examination: Vital Signs: Reviewed. Head and Neck: Pupils are equal, reactive to light. Intact eye movements. No JVD. No cervical lym phadenopathy. Neck is supple. Thyroid is not enlarged. Lungs: Clear to auscultation bilaterally. No rhonchi, wheezing, or crackles. No accessory muscle u se. Heart: Regular rate and rhythm. No extra sounds. Abdomen: Soft, nontender. Bowel sounds positive. No organomegaly. No masses or hernia. No rigidi ty or rebound. Extremities: No edema, clubbing, cyanosis. Intact pulses. Skin: No rash. Neurologic: Alert, awake, oriented x3. No acute focal deficits appreciated. Investigations: Troponin peaked at 182. BUN 13, creatinine 0.72, and hemoglobin is still 8.5. Assessment/recommendations: 1.Elevated troponin with a stress test being negative. This is demand ischemia. No further cardiac workup is needed. 2.Bradycardia due to medication. Carvedilol was held and the sinus bradycardia has resolved. From Cardiology standpoint, patient can be released. Follow up with me as an outpatient. /BRADY Voice ID: [id number] Report ID: [id number]
== END 2023-03-12 15:16 | disposition home or self-care (01) ==
LOC: ER 16:33 → ERHOLD 18:25 → 4TH 19:45
PROVIDERS: ADMIT Internal Medicine; ATTEND Internal Medicine
DX: I50.33 Acute on chronic diastolic (congestive) heart failure (principal); R00.1 Bradycardia, unspecified; K76.9 Liver disease, unspecified; E87.6 Hypokalemia; K70.30 Alcoholic cirrhosis of liver without ascites; E03.9 Hypothyroidism, unspecified; E83.42 Hypomagnesemia; R77.8 Other specified abnormalities of plasma proteins; Z87.820 Personal history of traumatic brain injury; I95.2 Hypotension due to drugs
CPT/HCPCS: 36415; 71045; 71275; 78452; 80048; 80053; 80061; 80076; 81001; 82728; 83540; 83735; 83880; 84439; 84443; 84466; 84484; 85025; 85379; 85610; 86850; 86900; 86901; 93005; 93017; 93306; 93970; 96360; 96361; 99285; A9500; J1650; J1940; J2785; J3475; J7030; J7040; Q9967

== ENCOUNTER 2025-03-18 18:29 | Emergency (ER) | payer OTHER ==
[2025-03-18 19:30] LABS: Absolute Lymphocytes (CBC) 2.1 K/uL (0.7-4.9); Hematocrit 39.6 % (36.0-45.0); Hemoglobin 13.5 g/dL (12.0-15.0); MCH 32.2 pg (27.0-35.0); MCHC 34.0 g/dL (32.0-36.0); MCV 94.7 fL (80-100); MPV 7.4 fL (7.6-11.3); Nucleated RBC Absolute Count 0.0 (0-0); Nucleated Red Blood Cells % 0.1 % (0-0); RBC Red Blood Cell Count 4.18 M/uL (3.86-4.86); White Blood Count 8.30 thou/uL (4.3-10.9)
[2025-03-18 19:39] LABS: PT Prothrombin Time 13.9 SECONDS (10-13.0); Protime INR 1.24
[2025-03-18] MEDS ORDERED: FOLIC ACID 5 MG/ML VIAL ONE (19:39)
[2025-03-18] MEDS ORDERED: NA CHLORIDE 0.9% 1,000 ML ONE (19:40)
--- NOTE | 2025-03-18 19:42 | RAD REPORT ---
EXAMINATION: Ct Stroke Brain Wo Cont CLINICAL INDICATION: Female, 69 years old.STROKE ALERT TECHNIQUE: Axial CT images from the skull base to the vertex without intravenous contrast. Coronal an d sagittal reformatted images were created from the data set. One or more of the following dose reduction techniques were used: Automated exposure control, adjustment of the mA and/or kV according to patient size, and/or iterative reconstruction. Unless otherwise specified, incidental findings do not require dedicated imaging follow-up. [id number]. COMPARISON: 11/25/2019 FINDINGS: INTRACRANIAL: No acute intracranial hemorrhage. Mild to moderate right MCA territory infarct primaril y favored chronic though along the lateral temporal lobe, there is an area that is more age indeterminate and could be late acute. There are 2 remote right frontal lobe cortical infarct. No hyd rocephalus. No mass effect or midline shift. Mild chronic small vessel ischemic changes.Moderate cerebral atrophy. Asymmetric enlargement of the right lateral ventricle likely due to remote right ce rebral hemisphere infarct. VASCULATURE: No visualized abnormalities in the arteries or dural venous sinuses. SCALP/SKULL: No calvarial fracture identified. No acute soft tissue abnormality. SINUSES: The visualized paranasal sinuses are mostly clear. No significant mastoid fluid. IMPRESSION: Multifocal right cerebral hemisphere infarcts including a mild to moderate right MCA territory infarc t. Most of the infarcts are remote however there is an area in the right posterior temporal lobe that could be late acute or subacute. MRI could better establish acuity. No acute intracranial hemorr alex. The findings were communicated to Dr. Atkinson on 03/18/2025 7:36 PM.
--- NOTE | 2025-03-18 19:43 | RAD REPORT ---
EXAMINATION: Neck Angio CLINICAL INDICATION: Female, 69 years old. PAIN TECHNIQUE: Axial CT images were obtained from the aortic arch to the skull base after intravenous con trast utilizing angiographic protocol with 3D post-processing (maximum intensity projection images, volume rendered images and/or shaded surface rendered images). One or more of the following dose redu ction techniques were used: Automated exposure control, adjustment of the mA and/or kV according to patient size, and/or iterative reconstruction. Unless otherwise specified, incidental findings do not require dedicated imaging follow-up. [id number]. NASCET criteria used. Mild 0-49% stenosis Moderate 50-69% stenosis Severe 70-99% stenosis COMPARISON: No prior exam. FINDINGS: AORTA: Normal RIGHT: - CCA: No flow limiting stenosis (>= 50%). No dissection. - ICA: Atherosclerotic changes but no flow limiting stenosis. - ECA: No flow limiting stenosis (>= 50%). No dissection. LEFT: - CCA: No flow limiting stenosis (>= 50%). No dissection. - ICA: Atherosclerotic changes but no flow limiting stenosis. - ECA: No flow limiting stenosis (>= 50%). No dissection. VERTEBRAL: Patent SOFT TISSUE: No significant neck soft tissue abnormalities. Mosaic lung attenuation in the lung apice s. 3D images confirm these findings. IMPRESSION: No arterial dissection or stenosis identified within the neck.
--- NOTE | 2025-03-18 19:48 | RAD REPORT ---
EXAMINATION: Head angio CLINICAL INDICATION: Female, 69 years old. NUMBNESS TECHNIQUE: Axial CT images were obtained through the head after intravenous contrast utilizing angiog raphic protocol with 3D post-processing (maximum intensity projection images, volume rendered images and/or shaded surface rendered images). One or more of the following dose reduction technique s were used: Automated exposure control, adjustment of the mA and/or kV according to patient size, and/or iterative reconstruction. Unless otherwise specified, incidental findings do not require dedic ated imaging follow-up. COMPARISON: No prior exam. FINDINGS: RIGHT: ICA: Moderate calcified right cavernous carotid with mild to moderate narrowing of the proximal mike nous ICA due to calcified plaque. No aneurysm. No occlusion. STARR: No aneurysm, stenosis, or occlusion. MCA: No aneurysm, stenosis, or occlusion. LPC: No aneurysm, stenosis, or occlusion. LEFT: ICA: Moderate calcified left cavernous carotid with mild to moderate narrowing of the proximal cavern ous ICA due to calcified plaque. No aneurysm. No occlusion. STARR: No aneurysm, stenosis, or occlusion. MCA: No aneurysm, stenosis, or occlusion. LPC: No aneurysm, stenosis, or occlusion. Vertebrobasilar: The vertebral arteries are patent. The basilar artery is normal in appearance. 3D images confirm these findings. IMPRESSION: No occlusion or aneurysm identified. Moderate calcified bilateral cavernous carotids with probable mild to moderate stenoses.
--- NOTE | 2025-03-18 19:55 | EDPHYS ---
Physician Documentation [facility] Name: Raysa Zhao Age: 69 yrs Sex: Female : 1955 Arrival Date: 03/18/2025 Time: 18:29 Bed 17 Private MD: ED Physician Pernell Atkinson HPI: 03/18 19:44 This 69 yrs old Female presents to ER via Unassigned with complaints of latia Doesn't Feel Right. 19:44 The patient's problem is reported as paresthesias, in left upper extremity, in left latia lower extremity. Onset: The symptoms/episode began/occurred at 17:55. Duration: resolved. Context: the episode(s) was witnessed, family. The symptoms are alleviated by nothing. The symptoms are aggravated by nothing. Associated signs and symptoms: The patient has no apparent associated signs or symptoms. Severity of symptoms: At their worst the symptoms were mild moderate in the emergency department the symptoms have resolved and did so just prior to arrival. Patient's baseline: Neuro: alert and fully oriented. The patient has not experienced similar symptoms in the past. Historical: - Allergies: 19:06 No Known Allergies; vc1 - PMHx: 19:06 Anxiety; cirrhosis of liver; Depression; etoh abuse; Hypertension; traumatic brain vc1 injury; - PSHx: 19:06 None; vc1 - Immunization history:: Adult Immunizations up to date. - Infectious Disease History:: Denies. - Family history:: not pertinent. - Social history:: Smoking status: Patient denies any tobacco usage or history of. ROS: 19:44 Constitutional: Negative for fever, chills, and weight loss, Eyes: Negative for injury, latia pain, redness, and discharge, ENT: Negative for injury, pain, and discharge, Neck: Negative for injury, pain, and swelling, Cardiovascular: Negative for chest pain, palpitations, and edema, Respiratory: Negative for shortness of breath, cough, wheezing, and pleuritic chest pain, Abdomen/GI: Negative for abdominal pain, nausea, vomiting, diarrhea, and constipation, Back: Negative for injury and pain, : Negative for injury, bleeding, discharge, and swelling, MS/Extremity: Negative for injury and deformity, Skin: Negative for injury, rash, and discoloration, Psych: Negative for depression, anxiety, suicide ideation, homicidal ideation, and hallucinations, Allergy/Immunology: Negative for hives, rash, and allergies, Endocrine: Negative for neck swelling, polydipsia, polyuria, polyphagia, and marked weight changes, Hematologic/Lymphatic: Negative for swollen nodes, abnormal bleeding, and unusual bruising, 19:44 Neuro: Positive for numbness, of the face and left leg, Exam: 19:44 Radiologist reports: see report , dr nader jeffery 19:44 Constitutional: This is a well developed, well nourished patient who is awake, alert, and in no acute distress. Head/Face: Normocephalic, atraumatic. Eyes: Pupils equal round and reactive to light, extra-ocular motions intact. Lids and lashes normal. Conjunctiva and sclera are non-icteric and not injected. Cornea within normal limits. Periorbital areas with no swelling, redness, or edema. ENT: Nares patent. No nasal discharge, no septal abnormalities noted. Tympanic membranes are normal and external auditory canals are clear. Oropharynx with no redness, swelling, or masses, exudates, or evidence of obstruction, uvula midline. Mucous membranes moist. Neck: Trachea midline, no thyromegaly or masses palpated, and no cervical lymphadenopathy. Supple, full range of motion without nuchal rigidity, or vertebral point tenderness. No Meningismus. Chest/axilla: Normal chest wall appearance and motion. Nontender with no deformity. No lesions are appreciated. Cardiovascular: Regular rate and rhythm with a normal S1 and S2. No gallops, murmurs, or rubs. Normal PMI, no JVD. No pulse deficits. Respiratory: Lungs have equal breath sounds bilaterally, clear to auscultation and percussion. No rales, rhonchi or wheezes noted. No increased work of breathing, no retractions or nasal flaring. Abdomen/GI: Soft, non-tender, with normal bowel sounds. No distension or tympany. No guarding or rebound. No evidence of tenderness throughout. Back: No spinal tenderness. No costovertebral tenderness. Full range of motion. Skin: Warm, dry with normal turgor. Normal color with no rashes, no lesions, and no evidence of cellulitis. MS/ Extremity: Pulses equal, no cyanosis. Neurovascular intact. Full, normal range of motion., bilateral aka Psych: Awake, alert, with orientation to person, place and time. Behavior, mood, and affect are within normal limits. 19:44 ECG was reviewed by the Attending Physician. 19:44 Neuro: Orientation: is normal, Mentation: is normal, Memory: is normal, appropriate for stated age, no acute changes, Cranial nerves: grossly normal, is grossly normal based on the patient's age, no acute changes, Cerebellar function: is grossly normal, is grossly normal based on the patient's age, no acute changes, Motor: is normal, is grossly normal based on the patient's age, no acute changes, moves all fours, strength is normal, strength is 5/5 in all extremities, Sensation: is normal, Gait: not tested. Babinski testing is normal, seizure activity, is not displayed by the patient, Vital Signs: 19:05 BP 169 / 71; Pulse 70; Resp 18; Temp 98.7; Pulse Ox 96% on R/A; sd4 19:14 BP 169 / 71; Pulse 85; Resp 18; Temp 98.7(O); Pulse Ox 92% on R/A; Weight 70.5 kg; oe Height 5 ft. 2 in. ; 19:30 BP 158 / 71; Pulse 69; Resp 18; Pulse Ox 96% on R/A; sd4 20:00 BP 149 / 99; Pulse 77; Resp 18; Pulse Ox 94% on R/A; sd4 20:30 BP 155 / 72; Pulse 68; Resp 18; Pulse Ox 96% on R/A; sd4 20:41 BP 155 / 72; Pulse 66; Resp 18; Pulse Ox 96% on R/A; Pain 0/10; sd4 21:00 BP 147 / 76; Pulse 63; Resp 18; Pulse Ox 96% on R/A; sd4 21:30 BP 152 / 71; Pulse 60; Resp 18; Pulse Ox 94% on R/A; sd4 19:14 Body Mass Index 28.43 (70.50 kg, 157.48 cm) oe 20:41 Pain Scale: Adult sd4 NIH Stroke Scale Scores: 20:41 NIHSS Score: 0 sd4 23:50 NIHSS Score: 0 latia MDM: 19:11 Medical Screening Exam initiated latia 19:51 TNKase (Tenecteplase) Screening: Indications: Definite evidence of stroke, ischemic, latia embolic, or hypertensive: Yes. Treatment will start within 4.5 hours onset of symptoms: Yes. No evidence of intracranial hemorrhage or CT of head and no evidence of peripheral hemorrhage or recent CVA: Yes. Consent for thrombolytic therapy: No. Contraindications: Other: ct late acute. Data reviewed: vital signs, nurses notes, lab test result(s), EKG, radiologic studies, CT scan, plain films. Consideration of Admission/Observation Escalation of care including admission/observation considered. I considered the following discharge prescriptions or medication management in the emergency department Medications were administered in the Emergency Department. See MAR. Independent interpretation of the following test(s) in the Emergency Department EKG: See my EKG interpretation above. Test considered but Not performed: MRI: no mri , no echo. Care significantly affected by the following chronic conditions: Hypertension, cirrhosis. Counseling: I had a detailed discussion with the patient and/or guardian regarding the historical points, exam findings, and any diagnostic results supporting the discharge/admit diagnosis, lab results, radiology results, the need to transfer to another facility, for higher level of care, [facility] does not immediately have the required specialist, dr boland no tnk, dr pena no tnk. 03/18 19:13 Order name: Basic Metabolic Panel; Complete Time: 20:54 [facility] 03/18 19:13 Order name: CBC with Diff; Complete Time: 20:54 [facility] 03/18 19:13 Order name: LFT's; Complete Time: 20:54 [facility] 03/18 19:13 Order name: Magnesium; Complete Time: 20:54 [facility] 03/18 19:13 Order name: NT PRO-BNP; Complete Time: 20:54 [facility] 03/18 19:13 Order name: PT-INR; Complete Time: 20:54 [facility] 03/18 19:13 Order name: Troponin HS; Complete Time: 20:54 [facility] 03/18 19:13 Order name: CRP; Complete Time: 20:54 [facility] 03/18 19:13 Order name: UA Rfx José Luis Cult if indicated; Complete Time: 21:08 [facility] 03/18 19:32 Order name: Glucose, Ancillary Testing; Complete Time: 20:54 ED[facility] 03/18 19:13 Order name: XRAY Chest (1 view); Complete Time: 20:54 [facility] 03/18 19:13 Order name: CT Stroke Brain w/o Contrast; Complete Time: 20:54 [facility] 03/18 19:13 Order name: CT Head Angio; Complete Time: 20:54 [facility] 03/18 19:13 Order name: CT Neck Angio; Complete Time: 20:54 [facility] 03/18 19:13 Order name: Cardiac monitoring; Complete Time: 19:53 [facility] 03/18 19:13 Order name: EKG - Nurse/Tech; Complete Time: 19:53 [facility] 03/18 19:13 Order name: IV Saline Lock; Complete Time: 20:39 [facility] 03/18 19:13 Order name: Labs collected and sent; Complete Time: 20:39 [facility] 03/18 19:13 Order name: O2 Per Protocol; Complete Time: 20:39 [facility] 03/18 19:13 Order name: O2 Sat Monitoring; Complete Time: 20:39 [facility] EC:44 Rate is 69 beats/min. Rhythm is regular. QRS [place] is Normal. [place] interval is normal. QRS latia interval is prolonged at 681 msec. QT interval is normal. No Q waves. T waves are Normal. No ST changes noted. Clinical impression: NSR w/ Non-specific ST/T Changes and No evidence of ischemia. Administered Medications: 19:30 Drug: NS 0.9% IV 1000 ml IV at 1000 ml once; to be given as a bolus over 60 minutes Route: IV; Rate: 1000 ml; Site: left hand; 21:55 Follow up: Response: No adverse reaction; IV Status: Completed infusion 03/19 00:30 Follow up: IV Status: Infusion continued 03/18 19:30 Drug: foLIC Acid IVPB 1 mg IVPB once Route: IVPB; Site: left hand; sd4 21:54 Follow up: Response: No adverse reaction; IV Status: Completed infusion 03/19 00:30 Follow up: IV Status: Infusion continued 03/18 20:24 Drug: Aspirin PO Chewable Tablet 162 mg PO once Route: PO; sd4 21:54 Follow up: Response: No adverse reaction 20:24 Drug: Clopidogrel PO 75 mg PO once Route: PO; sd4 21:55 Follow up: Response: No adverse reaction 4 20:24 Drug: Atorvastatin PO 40 mg PO once Route: PO; sd4 21:55 Follow up: Response: No adverse reaction sd4 22:00 Drug: Potassium PO Effervescent Tablet 50 mEq PO once; dissolve in 4 ounces of water or sd4 juice Route: PO; 03/19 00:30 Follow up: Response: No adverse reaction sd4 00:30 Follow up: Response: No adverse reaction sd4 03/18 22:00 Drug: Magnesium Sulfate IVPB 2 grams IVPB once over 2 hrs Route: IVPB; Infused Over: 2 sd4 hrs; Site: left hand; 22:00 Drug: Rocephin IV 1 grams IV at per protocol once; Given slow IV push per pharmacy sd4 instructions Route: IV; Rate: per protocol; Site: left hand; 03/19 00:30 Follow up: IV Status: Infusion continued sd4 00:53 Follow up: Response: No adverse reaction; IV Status: Infusion continued 4 03/18 23:21 CANCELLED (Duplicate Order): [id number] mg PO once latia 23:55 Drug: Keppra IV 1000 mg IV at per protocol once Route: IV; Rate: per protocol; Site: [facility] left wrist; 03/19 00:30 Follow up: Response: No adverse reaction; IV Status: Infusion continued 4 Disposition Summary: 03/18/25 19:55 Transfer Ordered Notes: Transfer Location: [facility] latia Reason: Higher level of care latia Condition: Fair latia Problem: new latia Symptoms: have improved latia Accepting Physician: to [facility](03/19/25 00:47) vc1 Diagnosis - Cerebral infarction, unspecified - left face and left leg numbness, resolved, NIH 0 latia - Other cirrhosis of liver latia - Abnormal electrocardiogram [ECG] [EKG] latia - Abnormal levels of other serum enzymes - elevated Troponin latia - Hypomagnesemia latia - Hypokalemia latia - Chronic kidney disease, unspecified latia - UTI/ Urinary tract infection, site not specified latia - Abnormal brain scan - SEE REPORThx of head trauma, craniectomy 12/16 [facility](03/18/25 latia 23:51) Forms: - Medication Reconciliation Form latia - SBAR form latia NIH Stroke Scale - NIH Stroke Score Date: 03/18/2025 Time: 20:41 Total Score = 0 10. Dysarthria (speech clarity - read or repeat words) - 0(Normal) 11. Extinction and Inattention (visual/tactile/auditory/spatial/personal) - 0(No abnormality) 1a. Level of Consciousness (LOC) - 0(Alert) 1b. Level of Consciousness (LOC) (Month \T\ Age) - 0(Both) 1c. LOC Commands (Open \T\ Closes Eyes/Dietary Aide Teacher) - 0(Both) 2. Best Gaze (Lateral Gaze Paresis) - 0(Normal) 3. Visual Field Loss - 0(No visual loss) 4. Facial Palsy - 0(Normal) 5a. Left Arm: Motor (10-second hold) - 0(No drift) 5b. Right Arm: Motor (10-second hold) - 0(No drift) 6a. Left Leg: Motor (5-second hold - always test supine) - 0(No drift) 6b. Right Leg: Motor (5-second hold - always test supine) - 0(No drift) 7. Limb Ataxia (finger/nose \T\ heel/beard - test with eyes open) - 0(Absent) 8. Sensory Loss (pinprick arms/legs/face) - 0(Normal) 9. Best Language: Aphasia (description/naming/reading) - 0(No aphasia) Initials: sd4 NIH Stroke Scale - NIH Stroke Score Date: 03/18/2025 Time: 23:50 Total Score = 0 10. Dysarthria (speech clarity - read or repeat words) - 0(Normal) 11. Extinction and Inattention (visual/tactile/auditory/spatial/personal) - 0(No abnormality) 1a. Level of Consciousness (LOC) - 0(Alert) 1b. Level of Consciousness (LOC) (Month \T\ Age) - 0(Both) 1c. LOC Commands (Open \T\ Closes Eyes/Dietary Aide Teacher) - 0(Both) 2. Best Gaze (Lateral Gaze Paresis) - 0(Normal) 3. Visual Field Loss - 0(No visual loss) 4. Facial Palsy - 0(Normal) 5a. Left Arm: Motor (10-second hold) - 0(No drift) 5b. Right Arm: Motor (10-second hold) - 0(No drift) 6a. Left Leg: Motor (5-second hold - always test supine) - 0(No drift) 6b. Right Leg: Motor (5-second hold - always test supine) - 0(No drift) 7. Limb Ataxia (finger/nose \T\ heel/beard - test with eyes open) - 0(Absent) 8. Sensory Loss (pinprick arms/legs/face) - 0(Normal) 9. Best Language: Aphasia (description/naming/reading) - 0(No aphasia) Initials: latia Signatures: Dispatcher [employer] EDMS Pernell Atkinson MD MD cha Calcote, Vanessa, RN RN vc1 Shahnaz Martins RN RN sd4 Corrections: (The following items were deleted from the chart) 03/18 19:14 19:14 BASIC METABOLIC PANEL+C.LAB.BRZ ordered. EDMS EDMS 19:14 19:14 CBC+H.LAB.BRZ ordered. EDMS EDMS 19:14 19:14 HEPATIC FUNCTION+C.LAB.BRZ ordered. EDMS EDMS 19:14 19:14 MAGNESIUM+C.LAB.BRZ ordered. EDMS EDMS 19:14 19:14 PROBNP+C.LAB.BRZ ordered. EDMS EDMS 19:14 19:14 PROTIME (+INR)+COAG.LAB.BRZ ordered. EDMS EDMS 19:14 19:14 Troponin High Sensitivity+C.LAB.BRZ ordered. EDMS EDMS 19:14 19:14 C-REACTIVE PROTEIN+C.LAB.BRZ ordered. EDMS EDMS 19:14 19:14 UA Rfx José Luis Cult if indicated+U.LAB.BRZ ordered. EDMS EDMS 19:14 19:14 Chest Single View+RAD.RAD.BRZ ordered. EDMS EDMS 19:14 19:14 CT-STROKE BRAIN W/O CONTRAST+CT.RAD.BRZ ordered. EDMS EDMS 19:14 19:14 Head Angio+CT.RAD.BRZ ordered. EDMS EDMS 19:14 19:14 Neck Angio+CT.RAD.BRZ ordered. EDMS EDMS 19:56 19:55 to [facility] latia latia 20:56 19:56 to [facility] latia latia 21:13 20:56 to [facility] latia latia 23:21 23:17 Keppra PO 1000 mg PO once ordered. sd4 latia 23:51 19:55 Abnormal brain scan - SEE REPORT latia altia 23:51 21:13 to [facility] latia latia 03/19 00:47 03/18 23:51 to [facility] latia vc1
--- NOTE | 2025-03-18 19:55 | ER ---
Nurse's Notes [facility] Name: Raysa Zhao Age: 69 yrs Sex: Female : 1955 Arrival Date: 03/18/2025 Time: 18:29 Bed 17 Private MD: Diagnosis: Cerebral infarction, unspecified-left face and left leg numbness, resolved, NIH 0;Other cirrhosis of liver;Abnormal brain scan-SEE REPORThx of head trauma, craniectomy 12/16 [facility];Abnormal electrocardiogram [ECG] [EKG];Abnormal levels of other serum enzymes-elevated Troponin;Hypomagnesemia;Hypokalemia;Chronic kidney disease, unspecified;UTI/ Urinary tract infection, site not specified Presentation: 03/18 19:06 Chief complaint: Patient states: At 5:55 PM the left side of my face started feeling vc1 different then numb and tingling then it went down to my left left. 19:06 Coronavirus screen: Client denies travel out of the [place] in the last 14 days. At this vc1 time, the client does not indicate any symptoms associated with coronavirus-19. Ebola Screen: Patient negative for fever greater than or equal to 101.5 degrees Fahrenheit, and additional compatible Ebola Virus Disease symptoms Patient denies exposure to infectious person. Patient denies travel to an Ebola-affected area in the 21 days before illness onset. No symptoms or risks identified at this time. Initial Sepsis Screen: Does the patient meet any 2 criteria? No. Patient's initial sepsis screen is negative. Does the patient have a suspected source of infection? No. Patient's initial sepsis screen is negative. Risk Assessment: Do you want to hurt yourself or someone else? Patient reports no desire to harm self or others. Onset of symptoms was March 18, 2025 at 17:55. Care prior to arrival: Medication(s) given: Hydralazine 25 mg. Activity prior to arrival: None. 19:06 Method Of Arrival: Ambulatory vc1 19:06 Acuity: CHIP 2 vc1 Triage Assessment: 19:06 General: Appears in no apparent distress. comfortable, well groomed, well developed, vc1 well nourished, Behavior is calm, cooperative, appropriate for age. Pain: Denies pain. EENT: No deficits noted. No signs and/or symptoms were reported regarding the EENT system. Neuro: Lujan Agitation-Sedation Scale (RASS): 0 - Alert and Calm Level of Consciousness is awake, alert, obeys commands, Oriented to person, place, time, situation, Appropriate for age Reports numbness in left leg and left side of face Symptoms have resolved. Cardiovascular: Capillary refill < 3 seconds Patient's skin is warm and dry. Respiratory: Airway is patent Respiratory effort is even, unlabored, Respiratory pattern is regular, symmetrical. GI: No deficits noted. No signs and/or symptoms were reported involving the gastrointestinal system. : No deficits noted. No signs and/or symptoms were reported regarding the genitourinary system. Derm: Skin is intact, is healthy with good turgor, Skin is dry, Skin is pink, warm \T\ dry. normal, black. Musculoskeletal: Circulation, motion, and sensation intact. Range of motion: intact in all extremities. Historical: - Allergies: 19:06 No Known Allergies; vc1 - PMHx: 19:06 Anxiety; cirrhosis of liver; Depression; etoh abuse; Hypertension; traumatic brain vc1 injury; - PSHx: 19:06 None; vc1 - Immunization history:: Adult Immunizations up to date. - Infectious Disease History:: Denies. - Family history:: not pertinent. - Social history:: Smoking status: Patient denies any tobacco usage or history of. Screenin:06 [facility] ED Fall Risk Assessment (Adult) History of falling in the last 3 months, vc1 including since admission No falls in past 3 months (0 pts) Confusion or Disorientation No (0 pts) Intoxicated or Sedated No (0 pts) Impaired Gait No (0 pts) Mobility Assist Device Used No (0 pt) Altered Elimination No (0 pt) Score/Fall Risk Level 0 - 2 = Low Risk Oriented to surroundings, Maintained a safe environment, Educated pt \T\ family on fall prevention, incl call for assistance when getting out of bed, Provided non-skid footwear, Hourly rounding (assess needs \T\ fall precautionary measures) done. Abuse screen: Denies threats or abuse. Nutritional screening: No deficits noted. Tuberculosis screening: No symptoms or risk factors identified. 19:45 [place] [facility] Protocol Exclusion Criteria: Exclusion Criteria Result: Proceed Brief vc1 Cognitive Screen What is your name? Normal, Where are you right now? Normal, What year is it? Normal. Oral Mechanism Examination Facial Symmetry: Normal, Motion: Normal, Lip Closure: Normal, Oral Mechanism Result: Normal. 3 oz Water Swallow Challenge: Pt able to drink all water without stopping, coughing, choking or throat clearing: Yes Result: PASS. 20:41 VAN Screening: Arm Drift: Patient shows no arm weakness. Patient is VAN negative. sd4 Assessment: 20:41 Reassessment: Patient is alert, oriented x 3, equal unlabored respirations, skin sd4 warm/dry/pink. Patient denies pain at this time. Patient states symptoms have improved. General: Appears in no apparent distress. comfortable, Behavior is calm, cooperative. Pain: Denies pain. Neuro: Level of Consciousness is awake, alert, obeys commands, Oriented to person, place, time, situation, Gear Grinder are equal bilaterally Moves all extremities. Gait is steady, Speech is normal, Facial symmetry appears normal, Reports numbness REPORTED EARLIER PRIOR TO COMING INTO THE ER. Cardiovascular: Reports None Denies chest pain, Respiratory: No deficits noted. Airway is patent Trachea midline Respiratory effort is even, unlabored, Respiratory pattern is regular, symmetrical. GI: No deficits noted. No signs and/or symptoms were reported involving the gastrointestinal system. : No deficits noted. No signs and/or symptoms were reported regarding the genitourinary system. EENT: No deficits noted. No signs and/or symptoms were reported regarding the EENT system. Derm: No deficits noted. No signs and/or symptoms reported regarding the dermatologic system. Musculoskeletal: Range of motion: intact in all extremities, Reports. Vital Signs: 19:05 BP 169 / 71; Pulse 70; Resp 18; Temp 98.7; Pulse Ox 96% on R/A; sd4 19:14 BP 169 / 71; Pulse 85; Resp 18; Temp 98.7(O); Pulse Ox 92% on R/A; Weight 70.5 kg; oe Height 5 ft. 2 in. ; 19:30 BP 158 / 71; Pulse 69; Resp 18; Pulse Ox 96% on R/A; sd4 20:00 BP 149 / 99; Pulse 77; Resp 18; Pulse Ox 94% on R/A; sd4 20:30 BP 155 / 72; Pulse 68; Resp 18; Pulse Ox 96% on R/A; sd4 20:41 BP 155 / 72; Pulse 66; Resp 18; Pulse Ox 96% on R/A; Pain 0/10; sd4 21:00 BP 147 / 76; Pulse 63; Resp 18; Pulse Ox 96% on R/A; sd4 21:30 BP 152 / 71; Pulse 60; Resp 18; Pulse Ox 94% on R/A; sd4 19:14 Body Mass Index 28.43 (70.50 kg, 157.48 cm) oe 20:41 Pain Scale: Adult sd4 NIH Stroke Scale Scores: 20:41 NIHSS Score: 0 sd4 23:50 NIHSS Score: 0 latia ED Course: 18:34 Patient arrived in ED. cj3 19:06 Arm band placed on right wrist. vc1 19:06 Patient has correct armband on for positive identification. Bed in low position. Call vc1 light in reach. Provided Education on: Plan of care. monitor technician on. Pulse ox on. NIBP on. 19:10 Pernell Atkinson MD is Attending Physician. latia 19:27 CT Stroke Brain w/o Contrast In Process Unspecified. EDMS 19:28 CT Head Angio In Process Unspecified. EDMS 19:28 CT Neck Angio In Process Unspecified. EDMS 19:30 XRAY Chest (1 view) In Process Unspecified. EDMS 19:34 Shahnaz Martins, RN is Primary Nurse. sd4 19:45 EKG done, by ED staff, reviewed by Pernell Atkinson MD. oe 19:49 Triage completed. vc1 19:49 initiated transfer with [facility]. vk 20:41 Patient has correct armband on for positive identification. Bed in low position. Call sd4 light in reach. Side rails up X 1. Provided Education on: Stroke. monitor technician on. Pulse ox on. NIBP on. 20:41 No provider procedures requiring assistance completed. IV is patent, is intact. sd4 03/19 00:46 Patient transferred, IV remains in place. vc1 02:30 [id number] Go[facility] \T\[id number] accepting admin nadeen muñiz \T\[id number] , [facility] to transport. Administered Medications: 03/18 19:30 Drug: NS 0.9% IV 1000 ml IV at 1000 ml once; to be given as a bolus over 60 minutes sd4 Route: IV; Rate: 1000 ml; Site: left hand; 21:55 Follow up: Response: No adverse reaction; IV Status: Completed infusion 03/19 00:30 Follow up: IV Status: Infusion continued 03/18 19:30 Drug: foLIC Acid IVPB 1 mg IVPB once Route: IVPB; Site: left hand; 21:54 Follow up: Response: No adverse reaction; IV Status: Completed infusion 03/19 00:30 Follow up: IV Status: Infusion continued 03/18 20:24 Drug: Aspirin PO Chewable Tablet 162 mg PO once Route: PO; 4 21:54 Follow up: Response: No adverse reaction 20:24 Drug: Clopidogrel PO 75 mg PO once Route: PO; 4 21:55 Follow up: Response: No adverse reaction 20:24 Drug: Atorvastatin PO 40 mg PO once Route: PO; 4 21:55 Follow up: Response: No adverse reaction 22:00 Drug: Potassium PO Effervescent Tablet 50 mEq PO once; dissolve in 4 ounces of water or sd4 juice Route: PO; 03/19 00:30 Follow up: Response: No adverse reaction 00:30 Follow up: Response: No adverse reaction 03/18 22:00 Drug: Magnesium Sulfate IVPB 2 grams IVPB once over 2 hrs Route: IVPB; Infused Over: 2 sd4 hrs; Site: left hand; 22:00 Drug: Rocephin IV 1 grams IV at per protocol once; Given slow IV push per pharmacy instructions Route: IV; Rate: per protocol; Site: left hand; 03/19 00:30 Follow up: IV Status: Infusion continued 00:53 Follow up: Response: No adverse reaction; IV Status: Infusion continued 03/18 23:21 CANCELLED (Duplicate Order): [id number] mg PO once [facility] 23:55 Drug: Keppra IV 1000 mg IV at per protocol once Route: IV; Rate: per protocol; Site: [facility] left wrist; 03/19 00:30 Follow up: Response: No adverse reaction; IV Status: Infusion continued Medication: 03/18 19:57 VIS not applicable for this client. vc1 Outcome: 19:55 ER care complete, transfer ordered by MD. jeffery 03/19 00:26 Patient left the ED. vc1 [facility], [facility] form completed. X-rays sent w/ patient. Condition: stable Instructed on the need for transfer, NIH Stroke Scale - NIH Stroke Score Date: 03/18/2025 Time: 20:41 Total Score = 0 10. Dysarthria (speech clarity - read or repeat words) - 0(Normal) 11. Extinction and Inattention (visual/tactile/auditory/spatial/personal) - 0(No abnormality) 1a. Level of Consciousness (LOC) - 0(Alert) 1b. Level of Consciousness (LOC) (Month \T\ Age) - 0(Both) 1c. LOC Commands (Open \T\ Closes Eyes/Shorthand Reporter) - 0(Both) 2. Best Gaze (Lateral Gaze Paresis) - 0(Normal) 3. Visual Field Loss - 0(No visual loss) 4. Facial Palsy - 0(Normal) 5a. Left Arm: Motor (10-second hold) - 0(No drift) 5b. Right Arm: Motor (10-second hold) - 0(No drift) 6a. Left Leg: Motor (5-second hold - always test supine) - 0(No drift) 6b. Right Leg: Motor (5-second hold - always test supine) - 0(No drift) 7. Limb Ataxia (finger/nose \T\ heel/beard - test with eyes open) - 0(Absent) 8. Sensory Loss (pinprick arms/legs/face) - 0(Normal) 9. Best Language: Aphasia (description/naming/reading) - 0(No aphasia) Initials: sd4 NIH Stroke Scale - NIH Stroke Score Date: 03/18/2025 Time: 23:50 Total Score = 0 10. Dysarthria (speech clarity - read or repeat words) - 0(Normal) 11. Extinction and Inattention (visual/tactile/auditory/spatial/personal) - 0(No abnormality) 1a. Level of Consciousness (LOC) - 0(Alert) 1b. Level of Consciousness (LOC) (Month \T\ Age) - 0(Both) 1c. LOC Commands (Open \T\ Closes Eyes/Shorthand Reporter) - 0(Both) 2. Best Gaze (Lateral Gaze Paresis) - 0(Normal) 3. Visual Field Loss - 0(No visual loss) 4. Facial Palsy - 0(Normal) 5a. Left Arm: Motor (10-second hold) - 0(No drift) 5b. Right Arm: Motor (10-second hold) - 0(No drift) 6a. Left Leg: Motor (5-second hold - always test supine) - 0(No drift) 6b. Right Leg: Motor (5-second hold - always test supine) - 0(No drift) 7. Limb Ataxia (finger/nose \T\ heel/beard - test with eyes open) - 0(Absent) 8. Sensory Loss (pinprick arms/legs/face) - 0(Normal) 9. Best Language: Aphasia (description/naming/reading) - 0(No aphasia) Initials: latia Signatures: Dispatcher [employer] EDMS Pernell Atkinson MD MD cha Espinosa, Orlando oe Calcote, Vanessa RN RN vc1 Cami Stevens Celeste cj3 Shahnaz Martins RN RN sd4 Corrections: (The following items were deleted from the chart) 03/18 19:52 19:14 BP 169 / 71; Pulse 85bpm; Resp 18bpm; Pulse Ox 92% RA; Temp 98.7F Oral; oe Height 5 ft. 2 in.; oe 03/19 01:50 03/18 20:41 [place] [facility]allow Protocol 3 oz Water Swallow Challenge: Pt able to vc1 drink all water without stopping, coughing, choking or throat clearing: Yes sd4 03/19 03:10 00:46 Condition: stable vc1 vc1 03:10 00:46 Transferred by ground EMS to [facility], Transfer form vc1 completed. X-rays sent w/ patient. vc1 03:10 00:46 Instructed on the need for transfer, vc1 vc1 03:10 00:47 Patient left the ED. vc1 vc1
--- NOTE | 2025-03-18 19:59 | RAD REPORT ---
EXAM: Chest Single View HISTORY: 69 years Female COUGH COMPARISON: 03/10/2023 FINDINGS: LUNGS/PLEURA: Pulmonary vascular congestion. Scattered ill-defined opacities are present bilaterally. CARDIAC/MEDIASTINUM: Moderate cardiomegaly. UPPER ABDOMEN: No significant abnormality. BONES: No acute abnormality. Remote left-sided rib fractures. LINES/TUBES/OTHER: N/A IMPRESSION: Pulmonary vascular congestion. Question background of chronic interstitial lung changes though an aty pical infectious process could appear similar..
[2025-03-18] MEDS ORDERED: CLOPIDOGREL 75 MG TABLET ONE (20:15)
[2025-03-18] MEDS ORDERED: ASPIRIN 81 MG CHEWABLE TABLET ONE (20:15)
[2025-03-18] MEDS ORDERED: ATORVASTATIN 40 MG TAB ONE (20:16)
[2025-03-18 20:23] LABS: ALT/SGPT 35 U/L (13-56); AST/SGOT 29 U/L (15-37); Albumin 3.8 g/dL (3.4-5.0); Albumin/Globulin Ratio 1.0 (1.1-1.8); Alkaline Phosphatase 120 U/L (45-117); Anion Gap 11.2 mEq/L (5.0-15.0); BUN Blood Urea Nitrogen 19 mg/dL (7-18); Bilirubin Indirect, Calculated 0.4 mg/dL (0.2-0.8); Globulin 3.8 g/dL (2.3-3.5); Glucose Level 118 mg/dL (74-106); Magnesium 1.3 mg/dL (1.6-2.4); NT PRO-BNP 411 pg/mL (<125); Potassium 3.2 mEq/L (3.5-5.1)
[2025-03-18 20:24] LABS: C-Reactive Protein < 2.90 mg/L (<3.00)
[2025-03-18 20:26] LABS: Troponin High Sensitivity 247.0 pg/mL (<58.9)
[2025-03-18 21:05] LABS: Sqamous Epithelial <5 /HPF (None Seen); Urine Culture Reflex Order NOT NEEDED; Urine Microscopic Reflex YN ORDER UMIC
[2025-03-18] MEDS ORDERED: CEFTRIAXONE 1000 MG/VIAL ONE (22:17)
[2025-03-18] MEDS ORDERED: Magnesium Sulfate 2gm IVPB 2 G/50 ML BAG IV ONE (22:17)
[2025-03-18] MEDS ORDERED: POTASSIUM 25 MEQ EFFERV TAB ONE (22:17)
[2025-03-18] MEDS ORDERED: NA CHLORIDE 0.9% 100 ML ONE (23:39)
[2025-03-18] MEDS ORDERED: LEVETIRACETAM 500 MG/5 ML VIAL IV ONE ×2 (23:39→23:40)
[2025-03-19 00:53] VITALS: TEMP 98.7
[2025-03-19 01:02] VITALS: BP 152/71; O2SAT 94
== END 2025-03-19 00:47 | disposition short-term general hospital (02) ==
LOC: ER 18:29
DX: I63.9 Cerebral infarction, unspecified (principal); R29.700 NIHSS score 0; K74.69 Other cirrhosis of liver; N39.0 Urinary tract infection, site not specified; E83.42 Hypomagnesemia; E87.6 Hypokalemia; R94.31 Abnormal electrocardiogram [ECG] [EKG]; R79.89 Other specified abnormal findings of blood chemistry; R94.02 Abnormal brain scan; I12.9 Hypertensive chronic kidney disease with stage 1 through stage 4 chronic kidney disease, or unspecified chronic kidney disease; N18.9 Chronic kidney disease, unspecified; Z87.820 Personal history of traumatic brain injury
CPT/HCPCS: 93005; 85025; 81001; 80048; 36415; 83735; 85610; 82947; 80076; 84484; 83880; 86140; 70496; 70498; 70450; 71045; 99285; Q9967; J3475; J1953 ×2; J7030; J0696